=== PATIENT | female | born 1985 | race Caucasian/White ===

== ENCOUNTER 2016-07-23 17:53 | Inpatient (IN) | payer OTHER ==
[~2016-07-23 17:53] MED LIST: BACL10TA PO; CLON.5 PO; CLOT1CRE TOP; COLL30T TOP; CYMB60CA PO; DILA2TAB2 PO; DULO20 PO; FAMO20TA2 PO; FENT75DI T-DERMAL; IMIT25TA PO; LORTA5 PO; MAGN30S PO; METR-1 PO; MIDO5TAB PO; MULTTAB PO; ROCE1INJ3 IM; SILV1CRE20 TOP; ZOFR8TAB4 PO; [UNRECOGNIZED DRUG - CODE] PO
[2016-07-23 18:20] VITALS: BP 129/67; PULSE 93; RESP 18; TEMP 98.5; O2SAT 97
[2016-07-23 18:24] VITALS: O2SAT 97
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
[2016-07-23] MEDS ORDERED: FENT75DI T-DERMAL (19:06)
[2016-07-23] MEDS ORDERED: NORC5TAB PO (19:06)
[2016-07-23] MEDS ORDERED: IMIT25TA PO (19:06)
[2016-07-23] MEDS ORDERED: CLON.5 PO (19:06)
[2016-07-23] MEDS ORDERED: DULO1CAP3 PO (19:09)
[2016-07-23] MEDS ORDERED: DULO20 PO (19:09)
[2016-07-23] MEDS ORDERED: ASCO500T PO (19:10)
--- NOTE | 2016-07-23 19:14 | RADRPT ---
EXAM DATE/TIME: 07/23/2016 18:35 [facility] COMPARISON: HEEL RIGHT ([id number]), July 23, 2016, 18:40. INDICATIONS : Left heel abrasion. MEDICAL HISTORY : Paraplegic SURGICAL HISTORY : None. ENCOUNTER: Initial ACUITY: 1 week PAIN SCORE: 0/10 LOCATION: Left heel FINDINGS: There does appear to be an abnormal morphology to the calcaneus. There is either absen ce or severe remodeling at the posterior inferior calcaneus. There does appear to be some hypertroph ic change at the posterior superior calcaneus at the expected location of the Achilles attachment sit e. There is some lack of definition at the inferior calcaneus at the expected location of the planta r aponeurosis attachment site. A more acute process in this region cannot be excluded. An area of p eriosteal reaction is not seen. The bones do appear osteopenic. There is edema seen throughout the f oot. CONCLUSION: 1. Abnormal appearance of the calcaneus with either post surgical change or posttraumatic remodeling at the posterior inferior calcaneus. 2. Lack of sharp cortical definition at the inferior aspect of the calcaneus at the expected location of the plantar aponeurosis attachment site. A more acute inflammatory process in this region cannot be excluded. If that is a significant clinical concern the foot could be further evaluated with an MRI examination. 3. Diffuse edema. 4. Osteopenia. Raji Carnes MD on July 23, 2016 at 19:02 Board Certified Radiologist. This report was verified electronically.
--- NOTE | 2016-07-23 19:19 | RADRPT ---
EXAM DATE/TIME: 07/23/2016 18:40 [facility] COMPARISON: No previous studies available for comparison. INDICATIONS : Right heel abrasion. MEDICAL HISTORY : Paraplegic. SURGICAL HISTORY : None. ENCOUNTER: Initial ACUITY: 1 week PAIN SCORE: 0/10 LOCATION: Right heel FINDINGS: The bones are osteopenic. No areas of bony destruction are seen. Periosteal reaction is not seen. There does appear to be some edema within the subcutaneous tissue. CONCLUSION: 1. No acute bony abnormality is seen. 2. Osteopenia. 3. Subcutaneous edema. Raji Carnes MD on July 23, 2016 at 19:09 Board Certified Radiologist. This report was verified electronically.
[2016-07-23] MEDS ORDERED: VANCOMYCIN INJ 1,000 MG in SODIUM CHLOR 0.9% 250 ML INJ 250 ML IV ONE (19:30)
[2016-07-23 19:38] VITALS: BP 108/70; PULSE 93; RESP 21; O2SAT 96
[2016-07-23 19:56] LABS: AUTOMATED NEUTROPHIL # 23.6 TH/MM3 (1.8-7.7); BASOPHIL # 0.1 TH/MM3 (0-0.2); BASOPHIL % 0.3 % (0.0-2.0); HEMATOCRIT 31.5 % (35.0-46.0); INTERNATIONAL NORMALIZED RATIO 1.1 RATIO; LYMPH % 7.1 % (9.0-44.0); LYMPHOCYTE # 1.9 TH/MM3 (1.0-4.8); MEAN CELL VOLUME 77.9 FL (80.0-100.0); MEAN CORPUSCULAR HGB CONC 33.4 % (32.0-36.0); NEUT % 88.6 % (16.0-70.0); PLATELET COUNT 505 TH/MM3 (150-450); RED BLOOD COUNT 4.05 MIL/MM3 (4.00-5.30); RED CELL DISTRIBUTION WIDTH 16.4 % (11.6-17.2); WHITE BLOOD COUNT 26.7 TH/MM3 (4.0-11.0)
[2016-07-23 20:02] LABS: ANION GAP 9 MEQ/L (5-15); AST (GOT) 39 U/L (15-37); BICARBONATE 25.7 MEQ/L (21.0-32.0); BLOOD UREA NITROGEN 8 MG/DL (7-18); CHLORIDE 97 MEQ/L (98-107); GLOMERULAR FILTRATION RATE 232 ML/MIN (>89); POTASSIUM 4.6 MEQ/L (3.5-5.1); SODIUM (NA) 132 MEQ/L (136-145)
[2016-07-23 20:03] LABS: HEMO FLAGS AUTO DIFF
[2016-07-23 20:08] LABS: ALKALINE PHOSPHATASE 974 U/L (45-117); ALT (GPT) 30 U/L (10-53); TOTAL BILIRUBIN ADULT 0.7 MG/DL (0.2-1.0)
[2016-07-23] MEDS ORDERED: metroNIDAZOLE 500 MG INJ 100 ML IV ONE (20:15)
[2016-07-23] MEDS ORDERED: SODIUM CHLOR 0.9% 1000 ML INJ 1,000 ML IV ONE (20:18)
[2016-07-23] MEDS ORDERED: IOHEXOL 350 MG/ML 10 ML VIAL (for RAD DIAG) IV ONE (20:59)
[2016-07-23 21:14] LABS: PLATELET ESTIMATE SMEAR HIGH (NORMAL); SCAN/DIFF AUTO DIFF CONFIRMED
--- NOTE | 2016-07-23 21:27 | RADRPT ---
EXAM DATE/TIME: 07/23/2016 20:46 [facility] COMPARISON: MRI HIP RIGHT W & W/O CONTRAST, April 28, 2016, 15:02. CT PELVIS W CONTRAS T, March 20, 2015, 19:03. INDICATIONS : Stage four decubitus ulcer. Evaluate for osteomyelitis. IV CONTRAST: 100 cc Omnipaque 350 (iohexol) IV ORAL CONTRAST: No oral contrast ingested. RADIATION DOSE: 15.50 CTDIvol (mGy) MEDICAL HISTORY : Hypertension. Hepatitis C. Paraplegic SURGICAL HISTORY : None. ENCOUNTER: Initial ACUITY: 1 week PAIN SCALE: 5/10 LOCATION: Posterior pelvis TECHNIQUE: Volumetric scanning of the pelvis was performed. Using automated exposure control and adjustment of the mA and/or kV according to patient size, radiation dose was kept as low as reasonabl y achievable to obtain optimal diagnostic quality images. FINDINGS: The right femoral head is dislocated. There does appear to be some irregularity at th e femoral head. There is air within the right hip joint. There is chronic remodeling and destructio n of the inferior pubic rami and ischium on the right side. There is increased soft tissue density s een around the right lower pelvis around the superior and inferior pubic rami regions and around the right hip. There does appear to be decubitus ulcers that extend to the ischial tuberosity regions bi laterally. On the right side no abnormal bony changes are seen. There is some soft tissue density s een inferior to the ischial tuberosity on the left side. There does appear to be atrophy of the coccy x. CONCLUSION: 1. Right hip dislocation. 2. Destructive changes at the ischium and inferior pubic rami on the right. There also appears to be some destructive change at the femoral head all concerning for changes of osteomyelitis. 3. Fluid and air within the right hip joint suggesting it is likely septic. 4. Decubitus ulcers seen bilaterally extending to the ischial tuberosity regions. No bony destructio n is seen on the left side. Raji Carnes MD on July 23, 2016 at 21:08 Board Certified Radiologist. This report was verified electronically.
[2016-07-23 21:33] VITALS: BP 111/63; PULSE 98; RESP 22; O2SAT 97
[2016-07-23] MEDS ORDERED: Vancomycin Consult Pharmacy 1 EA OTHER SCH (22:15)
[2016-07-23] MEDS ORDERED: BISACODYL 10 MG SUPP PR PRN (22:15)
[2016-07-23] MEDS ORDERED: SODIUM CHLORIDE 0.9% FLUSH 5 ML FLUSH FLUSH PRN (22:15)
[2016-07-23] MEDS ORDERED: ONDANSETRON HCL 4 MG/2 ML VIAL IVP PRN (22:15)
[2016-07-23] MEDS ORDERED: HYDROmorphone HCL PF 1 MG/ML VIAL IV PRN (22:15)
[2016-07-23] MEDS ORDERED: ACETAMINOPHEN 325 MG TAB PO PRN (22:15)
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
[2016-07-23] MEDS ORDERED: REMOVE OLD PATCH-FENTANYL TD SCH (23:00)
[2016-07-23] MEDS ORDERED: fentaNYL 75 MCG/HR PATCH T-DERMAL SCH (23:00)
[2016-07-23 23:20] LABS: BACTERIA, URINE OCC /hpf; BLOOD, URINE NEG (NEG); COMMENT (UR) CULTURE INDICATED; CULTURE IF INDICATED CULTURE INDICATED; GLUCOSE,URINE NEG (NEG); KETONE, URINE NEG (NEG); MUCUS URINE FEW /lpf (OCC); PH, URINE 6.5 (5.0-8.5); SQUAMOUS EPITHELIAL CELL URINE <1 /hpf (0-5); URINE COLOR YELLOW (YELLW/STRAW)
[2016-07-23 23:22] LABS: NITRITE,URINE POS (NEG)
[2016-07-23] MEDS: SODIUM CHLOR 0.9% 1000 ML INJ 1,000 ML IV SCH (23:22)
[2016-07-23] MEDS: HYDROmorphone HCL PF 1 MG/ML VIAL IV PRN (23:24)
[2016-07-24] VITALS: BP 106/57; PULSE 65; PULSE 96; RESP 18; TEMP 96.9; O2SAT 98
[2016-07-24] MEDS: fentaNYL 75 MCG/HR PATCH T-DERMAL SCH (01:08)
[2016-07-24 04:00] VITALS: BP 98/53; PULSE 102; RESP 20; TEMP 98.7; O2SAT 97
[2016-07-24] MEDS ORDERED: VANCOMYCIN 1,000 MG/NS 250 ML IV ONE ×2 (04:00)
[2016-07-24] MEDS: HYDROmorphone HCL PF 1 MG/ML VIAL IV PRN ×5 (04:05→22:04)
[2016-07-24] MEDS: metroNIDAZOLE 500 MG INJ 100 ML IV SCH ×3 (04:06→22:00)
[2016-07-24] MEDS: DULoxetine HCl DR 60 MG CAP PO SCH (07:53)
[2016-07-24] MEDS: MULTIVITAMIN TAB PO SCH (07:54)
[2016-07-24] MEDS: BACLOFEN 10 MG TAB PO SCH ×3 (07:54→17:59)
[2016-07-24] MEDS: MIDODRINE 5 MG TAB PO SCH ×3 (07:54→17:58)
[2016-07-24] MEDS: FAMOTIDINE 20 MG TAB PO SCH ×2 (07:54→22:00)
[2016-07-24] MEDS: HEPARIN SODIUM - SQ 10,000 UNITS/ML VIAL SQ SCH ×2 (07:55→21:00)
[2016-07-24] MEDS: SODIUM CHLORIDE 0.9% FLUSH 5 ML FLUSH FLUSH SCH ×2 (07:56→22:01)
[2016-07-24] MEDS: SODIUM CHLOR 0.9% 1000 ML INJ 1,000 ML IV SCH ×2 (07:56→18:00)
[2016-07-24 08:00] VITALS: BP 102/61; PULSE 96; RESP 15; TEMP 97.6; O2SAT 100
[2016-07-24] MEDS ORDERED: BISACODYL EC 5 MG TABEC PO PRN (10:00)
[2016-07-24] MEDS ORDERED: RESP: ALBUTEROL 2.5 MG/IPRATROPIUM 0.5 MG NEB (PRN) NEB (10:00)
[2016-07-24] MEDS ORDERED: MAGNESIUM HYDROXIDE SUSP 30 ML CUP PO PRN (10:00)
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
[2016-07-24] MEDS: VANCOMYCIN 1,000 MG/NS 250 ML IV SCH ×4 (12:40→22:01)
[2016-07-24 16:00] VITALS: BP 98/51; PULSE 88; RESP 20; TEMP 99; O2SAT 96
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
[2016-07-24] MEDS: CEFEPIME INJ 2,000 MG in SODIUM CHLORIDE 0.9% INJ 100 ML IV SCH (18:00)
[2016-07-24] MEDS ORDERED: PHARMACY ORDERED LAB XX ONE (19:45)
[2016-07-24 20:00] VITALS: BP 95/56; PULSE 110; RESP 20; TEMP 98.6; O2SAT 95
[2016-07-24 20:04] VITALS: PULSE 100
[2016-07-24] MEDS: DOCUSATE SODIUM 50 MG/SENNA 8.6 MG TAB PO SCH (21:00)
[2016-07-24] MEDS: DULoxetine HCl DR 20 MG CAP PO SCH (22:00)
[2016-07-24] MEDS: clonazePAM 0.5 MG TAB PO PRN (22:19)
[2016-07-24 22:25] LABS: AUTOMATED NEUTROPHIL # 10.4 TH/MM3 (1.8-7.7); BASOPHIL % 0.3 % (0.0-2.0); EOSINOPHIL # 0.1 TH/MM3 (0-0.4); EOSINOPHIL % 0.7 % (0.0-4.0); LYMPH % 12.6 % (9.0-44.0); LYMPHOCYTE # 1.6 TH/MM3 (1.0-4.8); MEAN CELL VOLUME 78.9 FL (80.0-100.0); MEAN CORPUSCULAR HEMOGLOBIN 25.9 PG (27.0-34.0); MEAN CORPUSCULAR HGB CONC 32.8 % (32.0-36.0); MONO % 5.5 % (0.0-8.0); NEUT % 80.9 % (16.0-70.0); PLATELET COUNT 354 TH/MM3 (150-450); RED BLOOD COUNT 2.79 MIL/MM3 (4.00-5.30); RED CELL DISTRIBUTION WIDTH 15.7 % (11.6-17.2); WHITE BLOOD COUNT 12.8 TH/MM3 (4.0-11.0)
[2016-07-24 22:27] LABS: HEMO FLAGS AUTO DIFF
[2016-07-24 22:50] LABS: BICARBONATE 25.3 MEQ/L (21.0-32.0); CALCIUM-PROTEIN CORRECTED 8.1 MG/DL (8.5-10.1); POTASSIUM 3.8 MEQ/L (3.5-5.1); TOTAL BILIRUBIN ADULT 0.4 MG/DL (0.2-1.0)
[2016-07-24 22:57] LABS: PLATELET ESTIMATE SMEAR NORMAL (NORMAL); PLATELET MORPHOLOGY NORMAL (NORMAL); SCAN/DIFF AUTO DIFF CONFIRMED
[2016-07-25] VITALS (7 sets, daily range): BP systolic 92–108; BP diastolic 55–64; PULSE 86–105; RESP 15–21; TEMP 97.7–100; O2SAT 94–98
[2016-07-25] MEDS: CEFEPIME INJ 2,000 MG in SODIUM CHLORIDE 0.9% INJ 100 ML IV SCH ×3 (03:29→18:00)
[2016-07-25] MEDS: HYDROmorphone HCL PF 1 MG/ML VIAL IV PRN ×6 (04:10→22:40)
[2016-07-25] MEDS: VANCOMYCIN 1,000 MG/NS 250 ML IV SCH ×6 (04:15→16:00)
[2016-07-25] MEDS: SODIUM CHLOR 0.9% 1000 ML INJ 1,000 ML IV SCH ×2 (04:15→14:13)
[2016-07-25] MEDS: metroNIDAZOLE 500 MG INJ 100 ML IV SCH ×3 (05:00→20:32)
[2016-07-25] MEDS: SODIUM CHLORIDE 0.9% FLUSH 5 ML FLUSH FLUSH SCH ×2 (09:00→20:35)
[2016-07-25] MEDS: DOCUSATE SODIUM 50 MG/SENNA 8.6 MG TAB PO SCH ×2 (09:05→20:31)
[2016-07-25] MEDS: MULTIVITAMIN TAB PO SCH (09:05)
[2016-07-25] MEDS: FAMOTIDINE 20 MG TAB PO SCH ×2 (09:05→20:33)
[2016-07-25] MEDS: BACLOFEN 10 MG TAB PO SCH ×3 (09:05→18:05)
[2016-07-25] MEDS: HEPARIN SODIUM - SQ 10,000 UNITS/ML VIAL SQ SCH ×2 (09:05→20:32)
[2016-07-25] MEDS: DULoxetine HCl DR 60 MG CAP PO SCH (09:05)
[2016-07-25] MEDS: MIDODRINE 5 MG TAB PO SCH ×3 (09:05→18:05)
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
[2016-07-25 12:06] LABS: AUTOMATED NEUTROPHIL # 8.1 TH/MM3 (1.8-7.7); BASOPHIL % 0.2 % (0.0-2.0); EOSINOPHIL # 0.1 TH/MM3 (0-0.4); EOSINOPHIL % 0.9 % (0.0-4.0); HEMATOCRIT 23.2 % (35.0-46.0); HEMO FLAGS DIFF FINAL; LYMPH % 15.7 % (9.0-44.0); LYMPHOCYTE # 1.6 TH/MM3 (1.0-4.8); MEAN CELL VOLUME 78.8 FL (80.0-100.0); MEAN CORPUSCULAR HEMOGLOBIN 25.7 PG (27.0-34.0); MEAN CORPUSCULAR HGB CONC 32.6 % (32.0-36.0); NEUT % 77.2 % (16.0-70.0); PLATELET COUNT 373 TH/MM3 (150-450); RED BLOOD COUNT 2.94 MIL/MM3 (4.00-5.30); RED CELL DISTRIBUTION WIDTH 15.9 % (11.6-17.2); WHITE BLOOD COUNT 10.4 TH/MM3 (4.0-11.0)
[2016-07-25 12:26] LABS: ALKALINE PHOSPHATASE 562 U/L (45-117); ALT (GPT) 15 U/L (10-53); ANION GAP 9 MEQ/L (5-15); AST (GOT) 15 U/L (15-37); BICARBONATE 25.2 MEQ/L (21.0-32.0); BLOOD UREA NITROGEN 4 MG/DL (7-18); CHLORIDE 102 MEQ/L (98-107); GLOMERULAR FILTRATION RATE 500 ML/MIN (>89); POTASSIUM 3.4 MEQ/L (3.5-5.1); SODIUM (NA) 136 MEQ/L (136-145); TOTAL BILIRUBIN ADULT 0.5 MG/DL (0.2-1.0)
--- NOTE | 2016-07-25 14:52 | PD.CONS ---
HPI Service Urology Consult Requested By Reason for Consult Retained suprapubic catheter Primary Care Physician Francois Guzman Diagnosis: (1) Sepsis ICD Code: A41.9 (2) UTI (urinary tract infection) ICD Code: N39.0 (3) Decubitus ulcer of right ischium, stage 4 ICD Code: L89.314 (4) Septic joint ICD Code: M00.9 (5) Ulcer of left heel ICD Code: L97.429 (6) Ulcer of right heel ICD Code: L97.419 (7) Osteomyelitis ICD Code: M86.9 (8) Paraplegia following spinal cord injury ICD Code: G82.20 (9) Bipolar disorder ICD Code: F31.9 (10) Tobacco abuse ICD Code: Z72.0 (11) Total self-care deficit ICD Code: R41.89 (12) Quadriplegia following spinal cord injury ICD Code: G82.50 (13) Bacteremia ICD Code: R78.81 History of Present Illness 31-year-old female admitted for further management of a dislocated septic right hip joint as well as osteomyelitis involving the sacrum and left heel. During her present hospitalization the patient was noted to have a suprapubic catheter which was placed back in April of last year by Dr. Dorado and was no longer functioning. The patient actually had the end of the catheter kinked and tied off to prevent seepage. She states that she was once again able to form self catheterizations and was interested in having the suprapubic catheter removed. I did review the CT scan of the pelvis performed during present admission and the tip of the suprapubic catheter appeared to have a significant amount of calcium depositions involving the tip of the catheter. I discussed with the patient that I would attempt to remove the tube at the bedside but normal likely could she would require cystoscopy with laser ablation of the calcium deposits prior to removal. Review of Systems Constitutional: COMPLAINS OF: Fatigue Genitourinary: DENIES: Urinary incontinence, Hematuria Musculoskeletal: COMPLAINS OF: Back pain (lower back) Other All other systems reviewed and negative. Past Family Social History Past Medical History Neurogenic bladder Paraplegia Bipolar disorder Anxiety Chronic decubiti Past Surgical History Placement of suprapubic catheter in April 2016 Diverting colostomy Left femur andrey placement Left hand surgery G-tube section 2 Reported Medications Refer to EMR Allergies: Coded Allergies: Penicillin (Verified Allergy, Severe, HIVES, 07/23/16) Daptomycin (Verified Allergy, Mild, Rash, 07/23/16) *MDRO Multi-Drug Resistant Organism (Verified Adverse Reaction, Unknown, ) MRSA (back wound) - 06/16/2015 Active Ordered Medications Refer to EMR Family History Reviewed and noncontributory Social History Smoker one half pack per day History drug abuse in the past Denies history alcohol abuse Physical Exam Vital Signs Vital Signs Date Time Temp Pulse Resp B/P Pulse Ox O2 Delivery O2 Flow Rate FiO2 07/25/16 04:00 99.0 99 21 108/64 95 07/25/16 00:00 100.0 105 20 96/56 96 07/24/16 20:04 100 07/24/16 20:00 98.6 110 20 95/56 95 07/24/16 16:00 99.0 88 20 98/51 96 Physical Exam GENERAL: This is a well-nourished, well-developed patient, in no apparent distress. SKIN: No rashes, ecchymoses or lesions. Cool and dry. HEAD: Atraumatic. Normocephalic. No temporal or scalp tenderness. EYES: Pupils equal round and reactive. Extraocular motions intact. No scleral icterus. No injection or drainage. ENT: Nose without bleeding, purulent drainage or septal hematoma. Throat without erythema, tonsillar hypertrophy or exudate. Uvula midline. Airway patent. NECK: Trachea midline. No JVD or lymphadenopathy. Supple, nontender, no meningeal signs.. GASTROINTESTINAL: Abdomen soft, non-tender, nondistended. : Suprapubic catheter in expected location and not draining. MUSCULOSKELETAL: Bilateral heel ulcers NEUROLOGICAL: Awake and alert. Cranial nerves II through XII intact. Normal speech. Paraplegia. Laboratory Laboratory Tests Test 07/24/16 07/25/16 22:10 11:37 White Blood Count 12.8 10.4 Red Blood Count 2.79 2.94 Hemoglobin 7.2 7.5 Hematocrit 22.0 23.2 Mean Corpuscular Volume 78.9 78.8 Mean Corpuscular Hemoglobin 25.9 25.7 Mean Corpuscular Hemoglobin 32.8 32.6 Concent Red Cell Distribution Width 15.7 15.9 Platelet Count 354 373 Mean Platelet Volume 7.7 7.7 Neutrophils (%) (Auto) 80.9 77.2 Lymphocytes (%) (Auto) 12.6 15.7 Monocytes (%) (Auto) 5.5 6.0 Eosinophils (%) (Auto) 0.7 0.9 Basophils (%) (Auto) 0.3 0.2 Neutrophils # (Auto) 10.4 8.1 Lymphocytes # (Auto) 1.6 1.6 Monocytes # (Auto) 0.7 0.6 Eosinophils # (Auto) 0.1 0.1 Basophils # (Auto) 0.0 0.0 CBC Comment AUTO DIFF DIFF FINAL Differential Comment AUTO DIFF CONFIRMED Platelet Estimate NORMAL Platelet Morphology Comment NORMAL Sodium Level 137 136 Potassium Level 3.8 3.4 Chloride Level 104 102 Carbon Dioxide Level 25.3 25.2 Anion Gap 8 9 Blood Urea Nitrogen 6 4 Creatinine 0.30 0.17 Estimat Glomerular Filtration 259 500 Rate Random Glucose 82 78 Calcium Level 7.4 7.5 Protein Corrected Calcium 8.1 Total Bilirubin 0.4 0.5 Aspartate Amino Transf 19 15 (AST/SGOT) Alanine Aminotransferase 19 15 (ALT/SGPT) Alkaline Phosphatase 562 562 Total Protein 5.8 5.9 Albumin 1.4 1.4 Vancomycin Level Trough 5.7 35.0 Date/Time Procedure Status Source Growth 07/25/16 11:43 Aerobic Blood Culture Received Blood Peripheral Pending 07/25/16 11:43 Anaerobic Blood Culture Received Blood Peripheral Pending 07/23/16 22:52 Urine Culture - Final Complete Urine Clean Catch 07/23/16 21:10 Gram Stain - Final Resulted Wound Foot 07/23/16 21:10 Wound Culture - Preliminary Resulted Staphylococcus Aureus Gram Negative Andrey 07/23/16 20:30 Aerobic Blood Culture - Preliminary Resulted Blood Peripheral Staphylococcus Aureus 07/23/16 20:30 Anaerobic Blood Culture - Preliminary Resulted Blood Peripheral NO GROWTH IN 2 DAYS Result Diagram: 07/25/16 1137 07/25/16 1137 Course Multiple attempts were made to remove the suprapubic catheter at bedside without success. Balloon was cycled several times with up to 30 cc sterile water. Assessment and Plan Assessment and Plan Urologic impression: #1 retained and occluded suprapubic catheter. #2 neurogenic bladder. Plan: #1 continue with Cortez to gravity drainage for now #2 keep and of suprapubic catheter covered with sterile gauze #3 will make arrangements for removal of suprapubic catheter in the cystoscopy suite with assistance of cystoscopy and laser lithotripsy. Problem Qualifiers (1) Ulcer of left heel: Qualified Code: L97.429 - Ulcer of left heel, with unspecified severity (2) Ulcer of right heel: Qualified Code: L97.419 - Ulcer of right heel, with unspecified severity (3) Osteomyelitis: Qualified Code: M86.19 - Acute osteomyelitis of multiple sites Dino Rush MD Jul 25, 2016 14:51
[2016-07-25] MEDS ORDERED: PHARMACY ORDERED LAB XX ONE (15:45)
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
[2016-07-25] MEDS: MUPIROCIN 2% OINT 22 GM TUBE TOPICAL SCH ×2 (18:05→20:34)
[2016-07-25] MEDS: DULoxetine HCl DR 20 MG CAP PO SCH (20:33)
[2016-07-26] VITALS (7 sets, daily range): BP systolic 91–106; BP diastolic 50–59; PULSE 85–97; RESP 16–19; TEMP 96.9–99; O2SAT 95–100
[2016-07-26] MEDS: SODIUM CHLOR 0.9% 1000 ML INJ 1,000 ML IV SCH ×3 (00:13→21:57)
[2016-07-26] MEDS: CEFEPIME INJ 2,000 MG in SODIUM CHLORIDE 0.9% INJ 100 ML IV SCH ×3 (00:29→18:47)
[2016-07-26] MEDS: HYDROmorphone HCL PF 1 MG/ML VIAL IV PRN ×6 (04:13→21:53)
[2016-07-26] MEDS: metroNIDAZOLE 500 MG INJ 100 ML IV SCH ×3 (04:14→21:57)
[2016-07-26 05:27] LABS: AUTOMATED NEUTROPHIL # 7.1 TH/MM3 (1.8-7.7); BASOPHIL # 0.1 TH/MM3 (0-0.2); BASOPHIL % 1.3 % (0.0-2.0); EOSINOPHIL # 0.1 TH/MM3 (0-0.4); EOSINOPHIL % 0.9 % (0.0-4.0); HEMO FLAGS DIFF FINAL; LYMPH % 15.9 % (9.0-44.0); LYMPHOCYTE # 1.5 TH/MM3 (1.0-4.8); MEAN CELL VOLUME 79.3 FL (80.0-100.0); MEAN CORPUSCULAR HEMOGLOBIN 25.4 PG (27.0-34.0); MONO % 6.2 % (0.0-8.0); NEUT % 75.7 % (16.0-70.0); PLATELET COUNT 407 TH/MM3 (150-450); RED CELL DISTRIBUTION WIDTH 15.9 % (11.6-17.2); WHITE BLOOD COUNT 9.4 TH/MM3 (4.0-11.0)
[2016-07-26 05:38] LABS: BICARBONATE 24.9 MEQ/L (21.0-32.0); CALCIUM-PROTEIN CORRECTED 8.3 MG/DL (8.5-10.1); TOTAL BILIRUBIN ADULT 0.3 MG/DL (0.2-1.0)
[2016-07-26 06:06] LABS: POTASSIUM 2.7 MEQ/L (3.5-5.1)
[2016-07-26] MEDS ORDERED: POTASSIUM CHLORIDE 25 MEQ EFFERVESCENT TAB PO ONE (06:45)
[2016-07-26] MEDS: DOCUSATE SODIUM 50 MG/SENNA 8.6 MG TAB PO SCH ×2 (08:48→21:55)
[2016-07-26] MEDS: MIDODRINE 5 MG TAB PO SCH ×3 (08:48→18:47)
[2016-07-26] MEDS: FAMOTIDINE 20 MG TAB PO SCH ×2 (08:48→21:55)
[2016-07-26] MEDS: BACLOFEN 10 MG TAB PO SCH ×3 (08:48→18:47)
[2016-07-26] MEDS: POTASSIUM CHLOR 20 MEQ PREMIX 100 ML IV SCH ×2 (08:49→11:51)
[2016-07-26] MEDS: MULTIVITAMIN TAB PO SCH (08:49)
[2016-07-26] MEDS: DULoxetine HCl DR 60 MG CAP PO SCH (08:59)
[2016-07-26] MEDS: HEPARIN SODIUM - SQ 10,000 UNITS/ML VIAL SQ SCH ×2 (09:04→21:55)
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
[2016-07-26] MEDS ORDERED: POTASSIUM CHLORIDE 10 MEQ CONTROLLED RELEASE TAB PO ONE (11:00)
--- NOTE | 2016-07-26 11:26 | HHI.PR ---
Subjective Remarks Resting quietly in no acute distress. Objective Vital Signs Vital Signs Date Time Temp Pulse Resp B/P Pulse Ox O2 Delivery O2 Flow Rate FiO2 07/26/16 08:00 98.4 88 17 95/52 98 07/26/16 04:00 97.6 92 19 101/54 95 07/26/16 00:00 97.6 87 18 97/54 95 07/25/16 20:00 98.6 91 18 95/56 94 07/25/16 19:44 95 07/25/16 16:00 97.7 91 15 107/62 98 07/25/16 12:00 97.8 86 18 99/57 98 I/O 07/25/16 07/25/16 07/25/16 07/26/16 07/26/16 07/26/16 07:00 15:00 23:00 07:00 15:00 23:00 Intake Total 906 ml 240 ml 1320 ml 753 ml Output Total 250 ml 400 ml 2000 ml 650 ml Balance 656 ml -160 ml -680 ml 103 ml Intake Oral 240 ml 240 ml 720 ml 240 ml IV Total 666 ml 600 ml 513 ml Output Urine Total 250 ml 400 ml 600 ml 250 ml Stool Total 0 ml 1400 ml 400 ml Result Diagram: 07/26/16 0359 07/26/16 0359 Objective Remarks Suprapubic catheter remains included. Assessment and Plan Assessment and Plan Urologic impression: #1 retained and occluded suprapubic catheter. #2 neurogenic bladder. Plan: #1 continue with Cortez to gravity drainage for now #2 keep and of suprapubic catheter covered with sterile gauze #3 arrangements made for removal of suprapubic catheter with assistance of cystoscopy and laser lithotripsy for today Dino Rush MD Jul 26, 2016 11:26
[2016-07-26] MEDS: VANCOMYCIN 1,000 MG/NS 250 ML IV SCH ×4 (14:46→21:55)
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
[2016-07-26] MEDS: SODIUM CHLORIDE 0.9% FLUSH 5 ML FLUSH FLUSH SCH (21:00)
[2016-07-26] MEDS: DULoxetine HCl DR 20 MG CAP PO SCH (21:58)
[2016-07-26] MEDS: MUPIROCIN 2% OINT 22 GM TUBE TOPICAL SCH (21:58)
[2016-07-26] MEDS: clonazePAM 0.5 MG TAB PO PRN (22:16)
[2016-07-27 00:12] VITALS: BP 105/51; PULSE 90; RESP 16; TEMP 96.4; O2SAT 92
[2016-07-27] MEDS: fentaNYL 75 MCG/HR PATCH T-DERMAL SCH (02:13)
[2016-07-27] MEDS: CEFEPIME INJ 2,000 MG in SODIUM CHLORIDE 0.9% INJ 100 ML IV SCH ×3 (02:14→20:21)
[2016-07-27] MEDS: REMOVE OLD PATCH-FENTANYL TD SCH (02:14)
[2016-07-27] MEDS: HYDROmorphone HCL PF 1 MG/ML VIAL IV PRN ×7 (02:17→23:11)
[2016-07-27 04:04] VITALS: BP 104/57; PULSE 92; RESP 17; TEMP 98.1; O2SAT 97
[2016-07-27] MEDS: SODIUM CHLOR 0.9% 1000 ML INJ 1,000 ML IV SCH ×2 (05:17→08:15)
[2016-07-27] MEDS: metroNIDAZOLE 500 MG INJ 100 ML IV SCH ×3 (05:17→20:21)
[2016-07-27] MEDS: VANCOMYCIN 1,000 MG/NS 250 ML IV SCH ×6 (05:17→23:11)
[2016-07-27 08:00] VITALS: BP 92/48; PULSE 87; RESP 17; TEMP 99; O2SAT 100
[2016-07-27] MEDS: MIDODRINE 5 MG TAB PO SCH ×3 (08:15→19:05)
[2016-07-27] MEDS: FAMOTIDINE 20 MG TAB PO SCH ×2 (08:15→20:22)
[2016-07-27] MEDS: DOCUSATE SODIUM 50 MG/SENNA 8.6 MG TAB PO SCH ×2 (08:15→20:22)
[2016-07-27] MEDS: DULoxetine HCl DR 60 MG CAP PO SCH (08:15)
[2016-07-27] MEDS: MULTIVITAMIN TAB PO SCH (08:15)
[2016-07-27] MEDS: BACLOFEN 10 MG TAB PO SCH ×3 (08:15→19:05)
[2016-07-27] MEDS: HEPARIN SODIUM - SQ 10,000 UNITS/ML VIAL SQ SCH ×2 (08:19→20:22)
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
[2016-07-27 12:00] VITALS: BP 85/45; PULSE 85; RESP 17; TEMP 98.8; O2SAT 98
[2016-07-27] MEDS ORDERED: PHARMACY ORDERED LAB XX ONE (13:45)
[2016-07-27 16:00] VITALS: BP 96/50; PULSE 93; RESP 17; TEMP 98.7; O2SAT 97
[2016-07-27 17:23] LABS: ANION GAP 8 MEQ/L (5-15); BLOOD UREA NITROGEN 1 MG/DL (7-18); CHLORIDE 100 MEQ/L (98-107); GLOMERULAR FILTRATION RATE 577 ML/MIN (>89); POTASSIUM 3.4 MEQ/L (3.5-5.1); SODIUM (NA) 136 MEQ/L (136-145)
[2016-07-27 17:45] LABS: CALCIUM-PROTEIN CORRECTED 8.2 MG/DL (8.5-10.1)
[2016-07-27] MEDS: SODIUM CHLORIDE 0.9% FLUSH 5 ML FLUSH FLUSH SCH (20:20)
[2016-07-27] MEDS: DULoxetine HCl DR 20 MG CAP PO SCH (20:22)
[2016-07-27] MEDS: MUPIROCIN 2% OINT 22 GM TUBE TOPICAL SCH (20:25)
[2016-07-27] MEDS: clonazePAM 0.5 MG TAB PO PRN (23:10)
[2016-07-28] VITALS (7 sets, daily range): BP systolic 96–147; BP diastolic 51–71; PULSE 84–110; RESP 16–20; TEMP 97.1–99; O2SAT 95–97
[2016-07-28] MEDS: CEFEPIME INJ 2,000 MG in SODIUM CHLORIDE 0.9% INJ 100 ML IV SCH ×2 (02:33→08:41)
[2016-07-28] MEDS: HYDROmorphone HCL PF 1 MG/ML VIAL IV PRN ×6 (05:30→21:25)
[2016-07-28] MEDS: metroNIDAZOLE 500 MG INJ 100 ML IV SCH ×2 (05:31→12:06)
[2016-07-28] MEDS: VANCOMYCIN 1,000 MG/NS 250 ML IV SCH ×6 (05:32→22:50)
[2016-07-28] MEDS ORDERED: PHARMACY ORDERED LAB XX ONE (05:45)
[2016-07-28] MEDS: FAMOTIDINE 20 MG TAB PO SCH ×2 (08:37→21:33)
[2016-07-28] MEDS: DULoxetine HCl DR 60 MG CAP PO SCH (08:37)
[2016-07-28] MEDS: HEPARIN SODIUM - SQ 10,000 UNITS/ML VIAL SQ SCH ×2 (08:37→21:00)
[2016-07-28] MEDS: MULTIVITAMIN TAB PO SCH (08:37)
[2016-07-28] MEDS: SODIUM CHLORIDE 0.9% FLUSH 5 ML FLUSH FLUSH SCH ×2 (08:38→21:26)
[2016-07-28] MEDS: MIDODRINE 5 MG TAB PO SCH ×4 (08:38→18:06)
[2016-07-28] MEDS: BACLOFEN 10 MG TAB PO SCH ×3 (08:38→18:06)
[2016-07-28] MEDS: DOCUSATE SODIUM 50 MG/SENNA 8.6 MG TAB PO SCH ×2 (08:39→21:00)
[2016-07-28] MEDS: MUPIROCIN 2% OINT 22 GM TUBE TOPICAL SCH ×2 (08:41→21:00)
[2016-07-28] MEDS: SODIUM HYPOCHLORITE 0.25% 500 ML BTL TOPICAL SCH (08:41)
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
[2016-07-28] MEDS ORDERED: POTASSIUM CHLORIDE 20 MEQ CONTROLLED RELEASE TAB PO ONE (12:00)
[2016-07-28] MEDS ORDERED: ASP: Documented ESBL, MDR A baumannii or P. aeruginosa XX PRN (13:30)
[2016-07-28] MEDS ORDERED: MISCELLANEOUS PHARMACY INFORMATION XX PRN (13:30)
[2016-07-28] MEDS ORDERED: VANCOMYCIN INJ 750 MG in SODIUM CHLOR 0.9% 250 ML INJ 250 ML IV SCH (14:00)
[2016-07-28] MEDS: IMIPENEM/CILASTATIN INJ 500 MG in SODIUM CHLORIDE 0.9% INJ 100 ML IV SCH ×2 (15:33→22:55)
--- NOTE | 2016-07-28 18:23 | PD.PLAS.PN ---
Subjective Remarks The patient reports that she is doing well. Vital Signs Date Time Temp Pulse Resp B/P Pulse Ox O2 Delivery O2 Flow Rate FiO2 07/28/16 16:00 98.9 103 19 99/56 96 07/28/16 15:40 20 07/28/16 12:00 99.0 110 19 96/51 97 07/28/16 08:00 97.1 103 18 100/60 96 07/28/16 04:00 98.7 92 16 100/62 95 07/28/16 03:03 16 07/28/16 00:00 98.1 84 20 120/71 96 07/27/16 20:00 I/O 07/27/16 07/27/16 07/27/16 07/28/16 07/28/16 07/28/16 07:00 15:00 23:00 07:00 15:00 23:00 Intake Total 1627 ml 780 ml 1435 ml Output Total 1000 ml 1050 ml 775 ml Balance 627 ml -270 ml 660 ml Intake Oral 380 ml 780 ml 485 ml IV Total 1247 ml 950 ml Output Urine Total 600 ml 1050 ml 775 ml Stool Total 400 ml 0 ml # Bowel Movements 1 Laboratory Tests Test 07/28/16 05:00 Vancomycin Level Trough 20.8 Date/Time Procedure Status Source Growth 07/25/16 11:43 Aerobic Blood Culture - Preliminary Resulted Blood Peripheral NO GROWTH IN 3 DAYS 07/25/16 11:43 Anaerobic Blood Culture - Preliminary Resulted Blood Peripheral NO GROWTH IN 3 DAYS 07/23/16 22:52 Urine Culture - Final Complete Urine Clean Catch 07/23/16 21:10 Gram Stain - Final Complete Wound Foot 07/23/16 21:10 Wound Culture - Final Complete Staphylococcus Aureus Pseudomonas Aeruginosa 07/23/16 20:30 Aerobic Blood Culture - Final Complete Blood Peripheral Staphylococcus Aureus 07/23/16 20:30 Anaerobic Blood Culture - Final Complete Blood Peripheral NO GROWTH IN 5 DAYS Result Diagram: 07/26/16 0359 07/27/16 1622 Exam Findings We examined the decubitus ulcers of her buttocks and sacrum. The left buttock wound has a slight amount of necrotic material. There is no foul odor. There is minimal drainage. There is no evidence of cellulitis. The remaining 2 wounds are clean. They have good granulating bases. There is no evidence of surrounding cellulitis, foul odor or necrotic material. Plan Impression: The patient has very clean decubitus ulcers of both buttocks and sacrum. There is no evidence of cellulitis or active infection. There is only the usual colonization as noted on the cultures. Plan: There is no need for antibiotics to treat these areas. We have ordered local wound care and we'll debride the small amount of necrotic material on the left side. The patient may be a candidate for wound VAC therapy. Charla Gibbs MD Jul 28, 2016 18:23
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
[2016-07-28] MEDS: LACTOBACILLUS ACIDOPHILUS TAB PO SCH (21:33)
[2016-07-28] MEDS: DULoxetine HCl DR 20 MG CAP PO SCH (21:33)
[2016-07-28] MEDS: clonazePAM 0.5 MG TAB PO PRN (22:55)
[2016-07-29] VITALS: BP 113/64; PULSE 98; RESP 18; TEMP 97.7; O2SAT 96
[2016-07-29] MEDS: HYDROmorphone HCL PF 1 MG/ML VIAL SQ PRN ×3 (00:30→08:16)
[2016-07-29] MEDS ORDERED: HYDROmorphone HCL PF 1 MG/ML VIAL SQ PRN (01:15)
[2016-07-29] MEDS: IMIPENEM/CILASTATIN INJ 500 MG in SODIUM CHLORIDE 0.9% INJ 100 ML IV SCH ×4 (03:00→20:33)
[2016-07-29 04:11] VITALS: BP 100/60; PULSE 89; RESP 16; O2SAT 94
[2016-07-29 04:53] LABS: BASOPHIL # 0.1 TH/MM3 (0-0.2); BASOPHIL % 0.6 % (0.0-2.0); EOSINOPHIL # 0.1 TH/MM3 (0-0.4); EOSINOPHIL % 1.2 % (0.0-4.0); HEMATOCRIT 25.7 % (35.0-46.0); HEMO FLAGS DIFF FINAL; LYMPH % 17.2 % (9.0-44.0); LYMPHOCYTE # 1.9 TH/MM3 (1.0-4.8); MEAN CELL VOLUME 78.6 FL (80.0-100.0); MEAN CORPUSCULAR HEMOGLOBIN 25.7 PG (27.0-34.0); MEAN CORPUSCULAR HGB CONC 32.7 % (32.0-36.0); MONO % 8.1 % (0.0-8.0); NEUT % 72.9 % (16.0-70.0); PLATELET COUNT 528 TH/MM3 (150-450); RED BLOOD COUNT 3.27 MIL/MM3 (4.00-5.30); RED CELL DISTRIBUTION WIDTH 16.6 % (11.6-17.2)
[2016-07-29 05:17] LABS: BICARBONATE 29.7 MEQ/L (21.0-32.0); POTASSIUM 3.5 MEQ/L (3.5-5.1)
[2016-07-29] MEDS: VANCOMYCIN 1,000 MG/NS 250 ML IV SCH ×6 (05:21→20:32)
[2016-07-29 05:35] LABS: CALCIUM-PROTEIN CORRECTED 7.9 MG/DL (8.5-10.1)
[2016-07-29] MEDS ORDERED: PHARMACY ORDERED LAB XX ONE (05:45)
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
[2016-07-29] MEDS: MIDODRINE 5 MG TAB PO SCH ×3 (08:15→16:32)
[2016-07-29] MEDS: FAMOTIDINE 20 MG TAB PO SCH ×2 (08:15→20:33)
[2016-07-29] MEDS: BACLOFEN 10 MG TAB PO SCH ×3 (08:15→16:32)
[2016-07-29] MEDS: DOCUSATE SODIUM 50 MG/SENNA 8.6 MG TAB PO SCH ×2 (08:16→20:33)
[2016-07-29] MEDS: LACTOBACILLUS ACIDOPHILUS TAB PO SCH ×2 (08:16→20:33)
[2016-07-29] MEDS: MULTIVITAMIN TAB PO SCH (08:16)
[2016-07-29] MEDS: SODIUM CHLORIDE 0.9% FLUSH 5 ML FLUSH FLUSH SCH ×2 (08:17→20:34)
[2016-07-29] MEDS: HEPARIN SODIUM - SQ 10,000 UNITS/ML VIAL SQ SCH ×2 (08:17→20:34)
[2016-07-29] MEDS: SODIUM HYPOCHLORITE 0.25% 500 ML BTL TOPICAL SCH (08:18)
[2016-07-29] MEDS: MUPIROCIN 2% OINT 22 GM TUBE TOPICAL SCH ×2 (08:18→20:39)
[2016-07-29] MEDS: DULoxetine HCl DR 60 MG CAP PO SCH (08:42)
[2016-07-29 09:02] VITALS: BP 109/62; PULSE 91; RESP 16; TEMP 100.7; O2SAT 94
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
[2016-07-29] MEDS ORDERED: PILL SPLITTER OTHER PRN (11:45)
[2016-07-29] MEDS ORDERED: HYDROmorphone HCL 2 MG TAB PO PRN (12:00)
[2016-07-29] MEDS: HYDROmorphone HCL 2 MG TAB PO PRN ×3 (12:27→20:35)
--- NOTE | 2016-07-29 15:19 | HHI.IDPN ---
Note Infectious Disease Note ID COVERAGE. Patient notes she is in pain and is tearful. Has fever. BC + for MSSA,GBS One bottle of the repeat blood clx has gram pos cocci. Heel clx with MDRO PSAE Antibiotics vanco Imipenem. Past Medical History paraplegia Allergies: Coded Allergies: Penicillin (Verified Allergy, Severe, HIVES, 07/23/16) Daptomycin (Verified Allergy, Mild, Rash, 07/23/16) *MDRO Multi-Drug Resistant Organism (Verified Adverse Reaction, Unknown, ) MRSA (back wound) - 06/16/2015 XDR-Pseudomonas Aeruginosa (foot)-07/23/16 Current Medications Medications (Trade) Dose Ordered Sig/Kinjal Route PRN Reason Start Time Stop Time Status Last Admin Dose Admin Pharmacy Profile Note (Vancomycin Consult Pharmacy) 0 ml @ 0 mls/hr UNSCH OTHER 07/23/16 22:15 IV Flush (NS Flush) 2 ml UNSCH PRN FLUSH FLUSH AFTER USING IV ACCESS 07/23/16 22:15 07/26/16 04:13 IV Flush (NS Flush) 2 ml BID FLUSH 07/24/16 09:00 07/28/16 21:26 Ondansetron HCl (Zofran Inj) 4 mg Q6H PRN IVP NAUSEA OR VOMITING 07/23/16 22:15 Bisacodyl (Dulcolax Supp) 10 mg DAILY PRN DE CONSTIPATION 07/23/16 22:15 Heparin Sodium (Porcine) (Heparin Inj) 5,000 units Q12H SQ 07/24/16 09:00 07/29/16 08:17 Acetaminophen (Tylenol) 650 mg Q6H PRN PO FEVER/PAIN SCALE 1 TO 2 07/23/16 22:15 Baclofen (Lioresal) 5 mg TID PO 07/24/16 09:00 07/29/16 12:27 Clonazepam (KlonoPIN) 0.5 mg DAILY PRN PO ANXIETY 07/23/16 22:15 07/28/16 22:55 Duloxetine HCl (Cymbalta Dr) 60 mg DAILY PO 07/24/16 09:00 07/29/16 08:42 Duloxetine HCl (Cymbalta Dr) 20 mg HS PO 07/24/16 21:00 07/28/16 21:33 Famotidine (Pepcid) 20 mg Q12HR PO 07/24/16 09:00 07/28/16 21:33 Midodrine (Proamatine) 5 mg TID PO 07/24/16 09:00 07/29/16 12:27 Multivitamins (Theragran) 1 tab DAILY PO 07/24/16 09:00 07/29/16 08:16 Fentanyl (Duragesic 75 Mcg Patch.72 Hr) 1 patch Q72H T-DERMAL 07/24/16 01:00 07/27/16 02:13 Miscellaneous Information 1 Q72H TD 07/27/16 01:00 07/27/16 02:14 Senna/Docusate Sodium (Nkechi-Colace) 2 tab BID PO 07/24/16 21:00 07/27/16 20:22 Bisacodyl (Dulcolax Ec) 5 mg DAILY PRN PO CONSTIPATION 07/24/16 10:00 Magnesium Hydroxide (Milk Of Magnfidel Liq) 30 ml Q6H PRN PO CONSTIPATION 07/24/16 10:00 Mupirocin (Bactroban 2% Oint) 1 applic Q12HR TOPICAL 07/25/16 13:00 07/29/16 08:18 Sodium Hypochlorite 500 ml 500 ml DAILY TOPICAL 07/27/16 11:00 07/29/16 08:18 Vancomycin HCl/ Sodium Chloride (Vancomycin Inj/ NS 250 ml Inj) 250 ml @ 250 mls/hr Q8H IV 07/28/16 14:00 07/29/16 12:27 Lactobacillus Acidophilus 1 tab 1 tab Q12HR PO 07/28/16 21:00 07/29/16 08:16 Imipenem/ Cilastatin Sodium/ Sodium Chloride (Primaxin Inj/NS Inj) 100 ml @ 200 mls/hr Q6H IV 07/28/16 15:00 07/29/16 10:22 Hydromorphone HCl (Dilaudid) 1 mg Q4H PRN PO PAIN SCALE 3 TO 5 07/29/16 12:00 Hydromorphone HCl (Dilaudid) 2 mg Q4H PRN PO PAIN SCALE 6 TO 10 07/29/16 12:00 07/29/16 12:27 Miscellaneous (Pill Splitter) 1 ea UNSCH PRN OTHER SEE LABEL COMMENTS 07/29/16 11:45 Objective Vital Signs Date Time Temp Pulse Resp B/P Pulse Ox O2 Delivery O2 Flow Rate FiO2 07/29/16 09:02 100.7 91 16 109/62 94 07/29/16 04:11 89 16 100/60 94 07/29/16 00:00 97.7 98 18 113/64 96 07/28/16 20:07 105 07/28/16 20:00 98.6 107 18 110/64 96 07/28/16 16:00 98.9 103 19 99/56 96 07/28/16 15:40 20 07/28/16 07/28/16 07/29/16 15:00 23:00 07:00 Intake Total 1435 ml 240 ml 240 ml Output Total 775 ml 500 ml 250 ml Balance 660 ml -260 ml -10 ml Intake Oral 485 ml 240 ml 240 ml IV Total 950 ml 0 ml 0 ml Output Urine Total 775 ml 500 ml 250 ml Stool Total 0 ml # Bowel Movements 0 0 Laboratory Tests Test 07/29/16 03:41 White Blood Count 11.0 TH/MM3 Red Blood Count 3.27 MIL/MM3 Hemoglobin 8.4 GM/DL Hematocrit 25.7 % Mean Corpuscular Volume 78.6 FL Mean Corpuscular Hemoglobin 25.7 PG Mean Corpuscular Hemoglobin 32.7 % Concent Red Cell Distribution Width 16.6 % Platelet Count 528 TH/MM3 Mean Platelet Volume 7.5 FL Neutrophils (%) (Auto) 72.9 % Lymphocytes (%) (Auto) 17.2 % Monocytes (%) (Auto) 8.1 % Eosinophils (%) (Auto) 1.2 % Basophils (%) (Auto) 0.6 % Neutrophils # (Auto) 8.0 TH/MM3 Lymphocytes # (Auto) 1.9 TH/MM3 Monocytes # (Auto) 0.9 TH/MM3 Eosinophils # (Auto) 0.1 TH/MM3 Basophils # (Auto) 0.1 TH/MM3 CBC Comment DIFF FINAL Differential Comment Laboratory Tests Test 07/27/16 07/29/16 16:22 03:41 Sodium Level 136 MEQ/L 133 MEQ/L Potassium Level 3.4 MEQ/L 3.5 MEQ/L Chloride Level 100 MEQ/L 97 MEQ/L Carbon Dioxide Level 28.0 MEQ/L 29.7 MEQ/L Anion Gap 8 MEQ/L 6 MEQ/L Blood Urea Nitrogen 1 MG/DL 2 MG/DL Creatinine LESS THAN 0.15 0.25 MG/DL MG/DL Estimat Glomerular Filtration 577 ML/MIN 320 ML/MIN Rate Random Glucose 84 MG/DL 99 MG/DL Calcium Level 7.4 MG/DL 7.4 MG/DL Protein Corrected Calcium 8.2 MG/DL 7.9 MG/DL Total Protein 5.7 GM/DL 6.1 GM/DL Imaging Pelvis CT 07/23/16 0000 Signed Impressions: Service Date/Time: Saturday, July 23, 2016 20:46 - CONCLUSION: 1. Right hip dislocation. 2. Destructive changes at the ischium and inferior pubic rami on the right. There also appears to be some destructive change at the femoral head all concerning for changes of osteomyelitis. 3. Fluid and air within the right hip joint suggesting it is likely septic. 4. Decubitus ulcers seen bilaterally extending to the ischial tuberosity regions. No bony destruction is seen on the left side. Raji Carnes MD Foot X-Ray 07/23/16 0000 Signed Impressions: Service Date/Time: Saturday, July 23, 2016 18:40 - CONCLUSION: 1. No acute bony abnormality is seen. 2. Osteopenia. 3. Subcutaneous edema. Raji Carnes MD Physical Exam CONSTITUTIONAL/GENERAL: No apparent distress. Ill appearing SKIN: No jaundice, rashes, or lesions. dressings in place CARDIOVASCULAR: Regular rate and rhythm without murmurs, gallops, or rubs. RESPIRATORY/CHEST: unlabored respirations. GASTROINTESTINAL: Abdomen soft, non-tender, nondistended. Bowel sounds present. Stoma in place with stool GENITOURINARY: Without palpable bladder distension. Cortez catheter in place\ with somewhat cloudy urine SP cath in place, clamped MUSCULOSKELETAL: Sacral ulcer stage 3 clean. R buttock ulcer clean with good granulation. Left buttock has some creamy debris. Extremities without clubbing, cyanosis, + 1 edema. No mottling or clubbing. NEUROLOGICAL: Awake and alert. Follows commands with BUE, speech normal. 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 R femoral head osteomyelitis. Seen by ortho and plans for surgery tomorrow. right hip joint septic arthritis R calcaneous infected ulcer complicated UTI L hip decubitus ulcer, infected, necrotic Allergic to PCN, h/o taking Keflex uneventfully urology ff non functional SP cath plans for removal of suprapubic catheter with assistance of cystoscopy and laser lithotripsy Staph aureus Bacteremia. -Continue vancomycin, -Continue Primaxin. Follow clinical status. Monitor blood cultures. Blane Biggs MD Jul 29, 2016 15:19
[2016-07-29 16:53] VITALS: BP 107/54; PULSE 101; RESP 18; TEMP 99; O2SAT 94
[2016-07-29 20:30] VITALS: BP 108/53; PULSE 91; RESP 16; TEMP 98.5; O2SAT 97
[2016-07-29] MEDS: DULoxetine HCl DR 20 MG CAP PO SCH (20:33)
[2016-07-29 20:35] VITALS: PULSE 93
[2016-07-30] VITALS: BP 116/67; PULSE 80; RESP 18; TEMP 98.6; O2SAT 98
[2016-07-30] MEDS: HYDROmorphone HCL 2 MG TAB PO PRN ×5 (00:56→20:09)
[2016-07-30] MEDS: REMOVE OLD PATCH-FENTANYL TD SCH (00:57)
[2016-07-30] MEDS: fentaNYL 75 MCG/HR PATCH T-DERMAL SCH (00:57)
[2016-07-30] MEDS: IMIPENEM/CILASTATIN INJ 500 MG in SODIUM CHLORIDE 0.9% INJ 100 ML IV SCH ×4 (02:44→21:47)
[2016-07-30 04:00] VITALS: BP 100/54; PULSE 106; RESP 19; TEMP 98.6; O2SAT 94
[2016-07-30] MEDS: VANCOMYCIN 1,000 MG/NS 250 ML IV SCH ×6 (05:16→21:53)
--- NOTE | 2016-07-30 06:52 | PD.ORT.PN ---
Subjective Subjective Remarks s/p right hip dislocation with infection doing well. pain controlled Objective Vitals Vital Signs Date Time Temp Pulse Resp B/P Pulse Ox O2 Delivery O2 Flow Rate FiO2 07/30/16 04:00 98.6 106 19 100/54 94 07/30/16 00:00 98.6 80 18 116/67 98 07/29/16 20:35 93 07/29/16 20:30 98.5 91 16 108/53 97 07/29/16 16:53 99.0 101 18 107/54 94 07/29/16 09:02 100.7 91 16 109/62 94 I/O 07/29/16 07/29/16 07/29/16 07/30/16 07/30/16 07/30/16 07:00 15:00 23:00 07:00 15:00 23:00 Intake Total 240 ml 407 ml 620 ml 457 ml Output Total 250 ml 1000 ml 600 ml Balance -10 ml 407 ml -380 ml -143 ml Intake Oral 240 ml 240 ml 0 ml IV Total 0 ml 407 ml 380 ml 457 ml Output Urine Total 250 ml 1000 ml 600 ml # Bowel Movements 0 0 Result Diagram: 07/29/16 0341 07/29/16 0341 Objective Remarks Patient is awake and alert. She has no motor function of her legs. Examination of right hip reveals a 5 cm open wound over the ischium. This appears to track down to the hip joint. She also has a pressure ulcer over the sacrum. There is serosanguineous drainage. There is no john purulence. Assessment & Plan Assessment and Plan 1) Right hip dislocation with infection -surgery today Timur Miller Jul 30, 2016 06:52
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
[2016-07-30 08:00] VITALS: BP 103/51; PULSE 93; RESP 17; TEMP 100.2; O2SAT 97
[2016-07-30] MEDS: LACTOBACILLUS ACIDOPHILUS TAB PO SCH ×2 (08:25→20:05)
[2016-07-30] MEDS: MIDODRINE 5 MG TAB PO SCH ×3 (08:25→17:54)
[2016-07-30] MEDS: DULoxetine HCl DR 60 MG CAP PO SCH (08:25)
[2016-07-30] MEDS: MULTIVITAMIN TAB PO SCH (08:25)
[2016-07-30] MEDS: BACLOFEN 10 MG TAB PO SCH ×3 (08:26→17:54)
[2016-07-30] MEDS: FAMOTIDINE 20 MG TAB PO SCH ×2 (08:26→20:05)
[2016-07-30] MEDS: DOCUSATE SODIUM 50 MG/SENNA 8.6 MG TAB PO SCH ×2 (08:26→20:05)
[2016-07-30] MEDS: SODIUM CHLORIDE 0.9% FLUSH 5 ML FLUSH FLUSH SCH ×2 (08:27→21:50)
[2016-07-30] MEDS: MUPIROCIN 2% OINT 22 GM TUBE TOPICAL SCH ×2 (08:27→20:06)
[2016-07-30] MEDS: SODIUM HYPOCHLORITE 0.25% 500 ML BTL TOPICAL SCH (08:27)
[2016-07-30] MEDS: HEPARIN SODIUM - SQ 10,000 UNITS/ML VIAL SQ SCH ×2 (08:27→20:06)
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
[2016-07-30] MEDS ORDERED: HYDROmorphone HCL PF 2 MG/ML VIAL ONE (10:35)
[2016-07-30] MEDS ORDERED: FAMOTIDINE 20 MG/2 ML VIAL ONE (10:35)
[2016-07-30] MEDS ORDERED: ACETAMINOPHEN 1000 MG/100 ML VIAL IV ONE (10:35)
[2016-07-30] MEDS ORDERED: VANCOMYCIN HCL 1000 MG VIAL ONE ×2 (10:52→11:56)
[2016-07-30] MEDS ORDERED: GENTAMICIN SULFATE 80 MG/2 ML VIAL ONE (10:53)
[2016-07-30] MEDS ORDERED: TOBRAMYCIN SULFATE 1200 MG VIAL OTHER ONE (11:36)
[2016-07-30] MEDS ORDERED: ONDANSETRON HCL 4 MG/2 ML VIAL IV PUSH ONE (12:00)
[2016-07-30] MEDS ORDERED: PHENYLEPH/NS 1000 MCG/10 ML SYR IV ONE (12:00)
[2016-07-30] MEDS ORDERED: PROPOFOL 200 MG/20 ML AMP IV ONE (12:00)
[2016-07-30] MEDS: LACTATED RINGER'S 1000 ML INJ 1,000 ML IV SCH ×2 (12:17→21:58)
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
[2016-07-30 13:02] VITALS: PULSE 81
[2016-07-30] MEDS ORDERED: fentaNYL CITRATE 250 MCG/5 ML AMP ONE (13:07)
[2016-07-30] MEDS ORDERED: MIDAZOLAM HCL 2 MG/2 ML VIAL ONE (13:07)
[2016-07-30] MEDS ORDERED: DO NOT ADM ANY ANTICOAGULANT DRUGS XX PRN (13:30)
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
--- NOTE | 2016-07-30 17:05 | PD.OP ---
Operative Report Preoperative Diagnosis: (1) Pressure ulcer of ischial area, stage 4 Left Postoperative Diagnosis: (1) Pressure ulcer of ischial area, stage 4 Left Procedure: Debridement of left ischial pressure ulcer using versajet. Anesthesia: General Surgeon: Charla Gibbs MD General Engineer(s): Jam Rogers PA-C Operation and Findings: The patient was in the right lateral position from Dr. Curry's procedure. The drapes were cut to extend the opening and expose the wound of the left ischium. The area was reprepped. Versajet was used to debride necrotic tissue from wound edges and wound bed. Dressings were applied to the pressure ulcers of the sacrum, and bilateral ischia including saline wet to dry gauze, which was covered with ABD pads and taped in place. The patient was then taken from the operating room to the recovery room in satisfactory condition. Postoperative instructions include resuming 0.25% Dakin's solution wet to dry dressings daily beginning tomorrow. Jaja Rogers Jul 30, 2016 17:05 Charla Gibbs MD Aug 02, 2016 12:40
[2016-07-30 20:00] VITALS: BP 128/84; PULSE 78; RESP 18; TEMP 96.9; O2SAT 96
[2016-07-30] MEDS: DULoxetine HCl DR 20 MG CAP PO SCH (20:05)
[2016-07-31] VITALS: BP 120/77; PULSE 83; RESP 18; TEMP 96.2; O2SAT 98
[2016-07-31] MEDS: HYDROmorphone HCL 2 MG TAB PO PRN ×6 (00:50→22:39)
[2016-07-31] MEDS: IMIPENEM/CILASTATIN INJ 500 MG in SODIUM CHLORIDE 0.9% INJ 100 ML IV SCH ×4 (03:17→21:11)
[2016-07-31] MEDS: VANCOMYCIN 1,000 MG/NS 250 ML IV SCH ×2 (05:02)
[2016-07-31] MEDS ORDERED: PHARMACY ORDERED LAB XX ONE (05:45)
[2016-07-31 05:50] LABS: BICARBONATE 28.3 MEQ/L (21.0-32.0); POTASSIUM 3.7 MEQ/L (3.5-5.1)
[2016-07-31 05:51] LABS: AUTOMATED NEUTROPHIL # 6.1 TH/MM3 (1.8-7.7); BASOPHIL % 0.3 % (0.0-2.0); EOSINOPHIL % 0.1 % (0.0-4.0); HEMATOCRIT 25.3 % (35.0-46.0); LYMPH % 16.5 % (9.0-44.0); LYMPHOCYTE # 1.3 TH/MM3 (1.0-4.8); MEAN CELL VOLUME 79.4 FL (80.0-100.0); MEAN CORPUSCULAR HEMOGLOBIN 25.7 PG (27.0-34.0); MEAN CORPUSCULAR HGB CONC 32.3 % (32.0-36.0); MONO % 3.5 % (0.0-8.0); NEUT % 79.6 % (16.0-70.0); PLATELET COUNT 569 TH/MM3 (150-450); RED BLOOD COUNT 3.19 MIL/MM3 (4.00-5.30); RED CELL DISTRIBUTION WIDTH 17.2 % (11.6-17.2); WHITE BLOOD COUNT 7.7 TH/MM3 (4.0-11.0)
[2016-07-31 06:13] LABS: HEMO FLAGS AUTO DIFF
[2016-07-31 08:00] VITALS: BP 111/74; PULSE 76; RESP 17; TEMP 96.5; O2SAT 95
[2016-07-31 08:36] LABS: METAMYELOCYTES 1 % (0-1); MYELOCYTES 1 % (0-0); NEUTROPHIL # MANUAL DIFF 6.1 TH/MM3 (1.8-7.7); PLATELET ESTIMATE SMEAR HIGH (NORMAL); PLATELET MORPHOLOGY NORMAL (NORMAL); POLYS (SEG NEUTROPHILS) 77 % (16-70); SCAN/DIFF FINAL DIFF MANUAL; WBC DIFF SAMPLE 100
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
[2016-07-31] MEDS: DULoxetine HCl DR 60 MG CAP PO SCH (08:53)
[2016-07-31] MEDS: MIDODRINE 5 MG TAB PO SCH ×3 (08:53→18:32)
[2016-07-31] MEDS: LACTOBACILLUS ACIDOPHILUS TAB PO SCH ×2 (08:53→21:00)
[2016-07-31] MEDS: DOCUSATE SODIUM 50 MG/SENNA 8.6 MG TAB PO SCH ×2 (08:54→21:11)
[2016-07-31] MEDS: FAMOTIDINE 20 MG TAB PO SCH ×2 (08:54→21:11)
[2016-07-31] MEDS: MULTIVITAMIN TAB PO SCH (08:54)
[2016-07-31] MEDS: BACLOFEN 10 MG TAB PO SCH ×3 (08:54→18:32)
[2016-07-31] MEDS: SODIUM CHLORIDE 0.9% FLUSH 5 ML FLUSH FLUSH SCH ×2 (08:55→21:10)
[2016-07-31] MEDS: HEPARIN SODIUM - SQ 10,000 UNITS/ML VIAL SQ SCH ×3 (08:55→21:12)
[2016-07-31] MEDS: MUPIROCIN 2% OINT 22 GM TUBE TOPICAL SCH ×2 (08:57→21:12)
[2016-07-31] MEDS: SODIUM HYPOCHLORITE 0.25% 500 ML BTL TOPICAL SCH (08:57)
[2016-07-31] MEDS ORDERED: fentaNYL 75 MCG/HR PATCH TD SCH (09:00)
[2016-07-31 12:00] VITALS: BP 116/68; PULSE 85; RESP 17; TEMP 96.3; O2SAT 98
[2016-07-31] MEDS: LACTATED RINGER'S 1000 ML INJ 1,000 ML IV SCH ×3 (13:18→21:13)
[2016-07-31 16:00] VITALS: BP 120/63; PULSE 87; RESP 18; TEMP 97.3; O2SAT 98
[2016-07-31 20:00] VITALS: BP 110/67; PULSE 82; RESP 16; TEMP 96.4; O2SAT 99
[2016-07-31] MEDS: DULoxetine HCl DR 20 MG CAP PO SCH (21:11)
[2016-08-01] VITALS: BP 104/62; PULSE 88; RESP 14; TEMP 96.6; O2SAT 99
[2016-08-01] MEDS: IMIPENEM/CILASTATIN INJ 500 MG in SODIUM CHLORIDE 0.9% INJ 100 ML IV SCH ×4 (02:50→21:00)
[2016-08-01] MEDS: HYDROmorphone HCL 2 MG TAB PO PRN ×4 (02:51→22:09)
[2016-08-01 08:00] VITALS: BP 110/60; PULSE 88; RESP 20; TEMP 97; O2SAT 99
[2016-08-01] MEDS: DOCUSATE SODIUM 50 MG/SENNA 8.6 MG TAB PO SCH ×2 (09:00→21:00)
[2016-08-01] MEDS: FAMOTIDINE 20 MG TAB PO SCH ×2 (09:00→21:00)
[2016-08-01] MEDS: DULoxetine HCl DR 60 MG CAP PO SCH (10:01)
[2016-08-01] MEDS: MULTIVITAMIN TAB PO SCH (10:01)
[2016-08-01] MEDS: BACLOFEN 10 MG TAB PO SCH ×3 (10:02→18:00)
[2016-08-01] MEDS: LACTOBACILLUS ACIDOPHILUS TAB PO SCH ×2 (10:02→21:29)
[2016-08-01] MEDS: DULoxetine HCl DR 20 MG CAP PO SCH ×2 (10:02→21:29)
[2016-08-01] MEDS: MIDODRINE 5 MG TAB PO SCH ×3 (10:03→18:00)
[2016-08-01] MEDS: HEPARIN SODIUM - SQ 10,000 UNITS/ML VIAL SQ SCH ×2 (10:03→21:00)
[2016-08-01] MEDS: SODIUM CHLORIDE 0.9% FLUSH 5 ML FLUSH FLUSH SCH ×2 (10:05→21:00)
[2016-08-01] MEDS ORDERED: HYDROmorphone HCL 4 MG TAB PO ONE (10:30)
[2016-08-01 12:00] VITALS: BP 110/55; PULSE 87; RESP 20; TEMP 97.5; O2SAT 95
--- NOTE | 2016-08-01 12:45 | PD.ORT.PN ---
Subjective Subjective Remarks Resting comfortably Objective Vitals Vital Signs Date Time Temp Pulse Resp B/P Pulse Ox O2 Delivery O2 Flow Rate FiO2 08/01/16 08:00 97.0 88 20 110/60 99 08/01/16 00:00 96.6 88 14 104/62 99 07/31/16 20:00 96.4 82 16 110/67 99 07/31/16 16:00 97.3 87 18 120/63 98 I/O 07/31/16 07/31/16 07/31/16 08/01/16 08/01/16 08/01/16 07:00 15:00 23:00 07:00 15:00 23:00 Intake Total 1056 ml 580 ml 610 ml 335 ml Output Total 500 ml 650 ml 400 ml Balance 1056 ml 80 ml -40 ml -65 ml Intake Oral 240 ml 240 ml 360 ml 120 ml IV Total 816 ml 340 ml 250 ml 215 ml Output Urine Total 500 ml 500 ml 350 ml Stool Total 150 ml 50 ml # Voids 3 # Bowel Movements 0 2 Result Diagram: 07/31/16 0359 07/31/16 0335 Objective Remarks Patient is awake and alert. She has no motor function of her legs. Examination of right hip reveals a 5 cm open wound over the ischium. hip incision is clean dry and intact. no signs of erythema or drainage Assessment & Plan Assessment and Plan 1) Right hip dislocation with infection -daily dressing changes beginning today - xeroform and primapore Antibiotics khanh will remain for 2 1/2 -3 weeks from surgery CECILIA STAPLES PA-C Aug 01, 2016 12:45
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
[2016-08-01] MEDS ORDERED: HYDROmorphone HCL PF 1 MG/ML VIAL IV PRN (14:00)
[2016-08-01] MEDS: LACTATED RINGER'S 1000 ML INJ 1,000 ML IV SCH (14:17)
[2016-08-01 16:00] VITALS: BP 115/55; PULSE 108; RESP 20; TEMP 98.9; O2SAT 98
[2016-08-01] MEDS: VANCOMYCIN 1,000 MG/NS 250 ML IV SCH ×2 (18:46)
[2016-08-01] MEDS: MUPIROCIN 2% OINT 22 GM TUBE TOPICAL SCH ×2 (18:48→21:00)
[2016-08-01] MEDS: SODIUM HYPOCHLORITE 0.25% 500 ML BTL TOPICAL SCH (18:48)
[2016-08-02] VITALS: BP 123/75; PULSE 102; RESP 20; TEMP 97.9; O2SAT 98
[2016-08-02] MEDS: LACTATED RINGER'S 1000 ML INJ 1,000 ML IV SCH ×3 (00:17→22:31)
[2016-08-02] MEDS: REMOVE OLD PATCH-FENTANYL TD SCH (01:00)
[2016-08-02] MEDS: fentaNYL 75 MCG/HR PATCH T-DERMAL SCH (01:33)
[2016-08-02] MEDS: VANCOMYCIN 1,000 MG/NS 250 ML IV SCH ×4 (02:00→18:56)
[2016-08-02] MEDS ORDERED: CYCLOBENZAPRINE HCL 10 MG TAB PO ONE (02:00)
[2016-08-02] MEDS: IMIPENEM/CILASTATIN INJ 500 MG in SODIUM CHLORIDE 0.9% INJ 100 ML IV SCH ×4 (03:00→22:32)
[2016-08-02] MEDS: HYDROmorphone HCL 2 MG TAB PO PRN ×2 (05:28→11:20)
[2016-08-02 08:00] VITALS: BP 103/54; PULSE 101; RESP 20; TEMP 96.9; O2SAT 95
[2016-08-02] MEDS: SODIUM HYPOCHLORITE 0.25% 500 ML BTL TOPICAL SCH (09:00)
[2016-08-02] MEDS: SODIUM CHLORIDE 0.9% FLUSH 5 ML FLUSH FLUSH SCH ×2 (09:00→22:33)
[2016-08-02] MEDS: HEPARIN SODIUM - SQ 10,000 UNITS/ML VIAL SQ SCH ×2 (09:00→22:32)
[2016-08-02] MEDS: MUPIROCIN 2% OINT 22 GM TUBE TOPICAL SCH ×2 (09:00→21:00)
[2016-08-02] MEDS: FAMOTIDINE 20 MG TAB PO SCH ×2 (09:00→22:32)
--- NOTE | 2016-08-02 11:10 | PD.ORT.PN ---
Subjective Subjective Remarks Resting comfortably Objective Vitals Vital Signs Date Time Temp Pulse Resp B/P Pulse Ox O2 Delivery O2 Flow Rate FiO2 08/02/16 08:00 96.9 101 20 103/54 95 08/02/16 00:00 97.9 102 20 123/75 98 08/01/16 16:00 98.9 108 20 115/55 98 08/01/16 12:00 97.5 87 20 110/55 95 I/O 08/01/16 08/01/16 08/01/16 08/02/16 08/02/16 08/02/16 07:00 15:00 23:00 07:00 15:00 23:00 Intake Total 335 ml 605 ml 480 ml 120 ml Output Total 400 ml 200 ml 1600 ml Balance -65 ml 405 ml -1120 ml 120 ml Intake Oral 120 ml 480 ml 480 ml 120 ml IV Total 215 ml 125 ml Output Urine Total 350 ml 200 ml 1600 ml Stool Total 50 ml # Bowel Movements 0 Result Diagram: 07/31/16 0359 07/31/16 0335 Objective Remarks Patient is awake and alert. She has no motor function of her legs. Examination of right hip reveals a 5 cm open wound over the ischium. hip incision is clean dry and intact. no signs of erythema or drainage Assessment & Plan Assessment and Plan 1) Right hip dislocation with infection with resection of femoral head and antibiotic bead placement POD 3 -daily dressing changes - xeroform and primapore Antibiotics khanh will remain for 2 1/2 -3 weeks from surgery CECILIA STAPLES PA-C Aug 02, 2016 11:10
[2016-08-02] MEDS: LACTOBACILLUS ACIDOPHILUS TAB PO SCH ×2 (11:19→22:32)
[2016-08-02] MEDS: DOCUSATE SODIUM 50 MG/SENNA 8.6 MG TAB PO SCH ×2 (11:19→22:32)
[2016-08-02] MEDS: BACLOFEN 10 MG TAB PO SCH ×3 (11:20→18:42)
[2016-08-02] MEDS: DULoxetine HCl DR 60 MG CAP PO SCH (11:20)
[2016-08-02] MEDS: MULTIVITAMIN TAB PO SCH (11:20)
[2016-08-02] MEDS: MIDODRINE 5 MG TAB PO SCH ×3 (11:20→18:42)
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
--- NOTE | 2016-08-02 13:32 | PD.PLAS.PN ---
Subjective Remarks Patient is lying comfortably. She reports that she is feeling better today. Objective Vital Signs Date Time Temp Pulse Resp B/P Pulse Ox O2 Delivery O2 Flow Rate FiO2 08/02/16 08:00 96.9 101 20 103/54 95 08/02/16 00:00 97.9 102 20 123/75 98 08/01/16 16:00 98.9 108 20 115/55 98 I/O 08/01/16 08/01/16 08/01/16 08/02/16 08/02/16 08/02/16 07:00 15:00 23:00 07:00 15:00 23:00 Intake Total 335 ml 605 ml 480 ml 120 ml Output Total 400 ml 200 ml 1600 ml Balance -65 ml 405 ml -1120 ml 120 ml Intake Oral 120 ml 480 ml 480 ml 120 ml IV Total 215 ml 125 ml Output Urine Total 350 ml 200 ml 1600 ml Stool Total 50 ml # Bowel Movements 0 Date/Time Procedure Status Source Growth 07/30/16 19:17 Aerobic Blood Culture - Preliminary Resulted Blood Peripheral NO GROWTH IN 3 DAYS 07/30/16 19:17 Anaerobic Blood Culture - Preliminary Resulted Blood Peripheral NO GROWTH IN 3 DAYS 07/30/16 11:50 Gram Stain - Final Complete Wound Hip 07/30/16 11:50 Wound Culture - Final Complete Staphylococcus Aureus 07/30/16 11:50 Fungal Smear - Final Resulted Wound Hip NO FUNGAL ELEMENTS SEEN. 07/30/16 11:50 Fungal Culture Resulted Wound Hip Pending 07/30/16 11:50 Acid Fast Stain - Final Resulted Wound Hip NO ACID FAST BACILLI SEEN 07/30/16 11:50 Mycobacterial Culture Resulted Wound Hip Pending Result Diagram: 07/31/16 0359 07/31/16 0335 Exam Findings Dressings in place to the sacral and bilateral ischial ulcers. Wounds are clean. There is no odor. Wounds beds with pink granulation tissue. Clear, serosanguineous drainage. Assessment and Plan Diagnosis: (1) Pressure ulcer of sacral region, stage 4 (2) Pressure ulcer of ischial area, stage 4 Assessment and Plan The wounds are clean without evidence of infection. Continue with daily 0.25% Dakin's solution wet to dry dressing. Spoke to patient and RN. Jaja Rogers Aug 02, 2016 13:32
[2016-08-02 13:33] VITALS: BP 70/40; PULSE 105; RESP 19; TEMP 98.7; O2SAT 99
[2016-08-02 14:59] VITALS: BP 88/55; PULSE 80; RESP 20; TEMP 99.1; O2SAT 96
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
[2016-08-02] MEDS: HYDROmorphone HCL 4 MG TAB PO PRN (18:42)
--- NOTE | 2016-08-02 19:03 | RADRPT ---
EXAM DATE/TIME: 08/02/2016 18:02 [facility] COMPARISON: No previous studies available for comparison. FINDINGS: A single view of the chest demonstrates the lungs to be symmetrically aerated without evidence of mas s, infiltrate or effusion, except for minimal basilar atelectasis. The cardiomediastinal contours ar e unremarkable. Osseous structures are intact. CONCLUSION: 1. Right PICC line tip in superior vena cava. Minimal basilar atelectasis. Norris Diaz MD on August 02, 2016 at 19:01 Board Certified Radiologist. This report was verified electronically.
[2016-08-02 20:04] VITALS: BP 113/65
[2016-08-03] VITALS: BP 111/61; PULSE 118; RESP 18; TEMP 99.3; O2SAT 98
[2016-08-03] MEDS: HYDROmorphone HCL 4 MG TAB PO PRN ×4 (00:12→18:54)
[2016-08-03] MEDS ORDERED: PHARMACY ORDERED LAB XX ONE ×2 (01:45→06:45)
[2016-08-03] MEDS: IMIPENEM/CILASTATIN INJ 500 MG in SODIUM CHLORIDE 0.9% INJ 100 ML IV SCH ×4 (02:51→21:04)
[2016-08-03] MEDS: VANCOMYCIN 1,000 MG/NS 250 ML IV SCH ×4 (06:03→18:54)
[2016-08-03 08:00] VITALS: BP 108/54; PULSE 108; RESP 17; TEMP 98.3; O2SAT 98
[2016-08-03] MEDS: HEPARIN SODIUM - SQ 10,000 UNITS/ML VIAL SQ SCH ×3 (08:50→21:00)
[2016-08-03] MEDS: SODIUM HYPOCHLORITE 0.25% 500 ML BTL TOPICAL SCH (08:51)
[2016-08-03] MEDS: BACLOFEN 10 MG TAB PO SCH ×3 (08:51→17:31)
[2016-08-03] MEDS: MULTIVITAMIN TAB PO SCH (08:51)
[2016-08-03] MEDS: DOCUSATE SODIUM 50 MG/SENNA 8.6 MG TAB PO SCH ×2 (08:51→21:00)
[2016-08-03] MEDS: MUPIROCIN 2% OINT 22 GM TUBE TOPICAL SCH ×2 (08:51→21:00)
[2016-08-03] MEDS: DULoxetine HCl DR 60 MG CAP PO SCH (08:51)
[2016-08-03] MEDS: MIDODRINE 5 MG TAB PO SCH ×3 (08:51→17:31)
[2016-08-03] MEDS: FAMOTIDINE 20 MG TAB PO SCH ×2 (08:51→21:00)
[2016-08-03] MEDS: LACTOBACILLUS ACIDOPHILUS TAB PO SCH ×2 (08:51→21:00)
[2016-08-03] MEDS: SODIUM CHLORIDE 0.9% FLUSH 5 ML FLUSH FLUSH SCH ×2 (08:52→21:04)
[2016-08-03] MEDS ORDERED: REMOVE OLD PATCH T-DERMAL SCH (09:00)
[2016-08-03 12:00] VITALS: BP 110/58; PULSE 98; RESP 17; TEMP 98.6; O2SAT 99
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
[2016-08-03] MEDS: LACTATED RINGER'S 1000 ML INJ 1,000 ML IV SCH ×2 (16:17→21:05)
[2016-08-03 20:00] VITALS: BP 109/61; PULSE 96; RESP 18; TEMP 97.6; O2SAT 100
[2016-08-03] MEDS: DULoxetine HCl DR 20 MG CAP PO SCH (21:04)
[2016-08-04] VITALS: BP 119/67; PULSE 56; RESP 19; TEMP 98.6; O2SAT 99
[2016-08-04] MEDS: IMIPENEM/CILASTATIN INJ 500 MG in SODIUM CHLORIDE 0.9% INJ 100 ML IV SCH ×4 (01:13→20:18)
[2016-08-04] MEDS: HYDROmorphone HCL 4 MG TAB PO PRN ×3 (01:13→14:04)
[2016-08-04] MEDS: VANCOMYCIN 1,000 MG/NS 250 ML IV SCH ×4 (05:34→17:55)
[2016-08-04 06:03] LABS: AUTOMATED NEUTROPHIL # 5.4 TH/MM3 (1.8-7.7); BASOPHIL % 0.3 % (0.0-2.0); EOSINOPHIL # 0.1 TH/MM3 (0-0.4); EOSINOPHIL % 1.7 % (0.0-4.0); HEMATOCRIT 21.6 % (35.0-46.0); HEMO FLAGS DIFF FINAL; LYMPH % 23.5 % (9.0-44.0); LYMPHOCYTE # 1.9 TH/MM3 (1.0-4.8); MEAN CELL VOLUME 77.9 FL (80.0-100.0); MEAN CORPUSCULAR HEMOGLOBIN 26.5 PG (27.0-34.0); MONO % 8.8 % (0.0-8.0); NEUT % 65.7 % (16.0-70.0); PLATELET COUNT 449 TH/MM3 (150-450); RED BLOOD COUNT 2.77 MIL/MM3 (4.00-5.30); RED CELL DISTRIBUTION WIDTH 18.1 % (11.6-17.2); WHITE BLOOD COUNT 8.2 TH/MM3 (4.0-11.0)
[2016-08-04 06:29] LABS: BICARBONATE 27.6 MEQ/L (21.0-32.0); POTASSIUM 3.8 MEQ/L (3.5-5.1)
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
[2016-08-04 08:00] VITALS: BP 94/48; PULSE 95; RESP 18; TEMP 97.3; O2SAT 99
[2016-08-04] MEDS: SODIUM CHLORIDE 0.9% FLUSH 5 ML FLUSH FLUSH SCH ×2 (08:41→20:19)
[2016-08-04] MEDS: HEPARIN SODIUM - SQ 10,000 UNITS/ML VIAL SQ SCH ×2 (09:00→20:20)
[2016-08-04] MEDS: DOCUSATE SODIUM 50 MG/SENNA 8.6 MG TAB PO SCH ×2 (09:00→20:20)
[2016-08-04] MEDS: MUPIROCIN 2% OINT 22 GM TUBE TOPICAL SCH ×2 (09:00→20:20)
[2016-08-04] MEDS: SODIUM HYPOCHLORITE 0.25% 500 ML BTL TOPICAL SCH (09:00)
[2016-08-04] MEDS: FAMOTIDINE 20 MG TAB PO SCH ×2 (10:24→20:20)
[2016-08-04] MEDS: DULoxetine HCl DR 20 MG CAP PO SCH (10:24)
[2016-08-04] MEDS: LACTOBACILLUS ACIDOPHILUS TAB PO SCH ×2 (10:24→20:19)
[2016-08-04] MEDS: MIDODRINE 5 MG TAB PO SCH ×3 (10:24→17:56)
[2016-08-04] MEDS: BACLOFEN 10 MG TAB PO SCH ×3 (10:25→17:56)
[2016-08-04] MEDS: MULTIVITAMIN TAB PO SCH (10:25)
[2016-08-04] MEDS: DULoxetine HCl DR 60 MG CAP PO SCH ×2 (10:49→20:19)
[2016-08-04] MEDS: LACTATED RINGER'S 1000 ML INJ 1,000 ML IV SCH ×2 (10:50→17:56)
[2016-08-04 12:00] VITALS: BP 103/58; PULSE 92; RESP 18; TEMP 97.7; O2SAT 99
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
[2016-08-04 16:00] VITALS: BP 105/63; PULSE 89; RESP 17; TEMP 97.8; O2SAT 99
[2016-08-04 20:00] VITALS: BP 102/51; PULSE 89; RESP 17; TEMP 98.6; O2SAT 95
[2016-08-04] MEDS: HYDROmorphone HCL 2 MG TAB PO PRN (20:17)
[2016-08-05] MEDS: REMOVE OLD PATCH-FENTANYL TD SCH (01:00)
[2016-08-05] MEDS: fentaNYL 75 MCG/HR PATCH T-DERMAL SCH (02:00)
[2016-08-05] MEDS: IMIPENEM/CILASTATIN INJ 500 MG in SODIUM CHLORIDE 0.9% INJ 100 ML IV SCH ×4 (02:08→20:49)
[2016-08-05] MEDS: HYDROmorphone HCL 2 MG TAB PO PRN ×4 (02:14→20:48)
[2016-08-05] MEDS: clonazePAM 0.5 MG TAB PO PRN (03:03)
[2016-08-05] MEDS: VANCOMYCIN 1,000 MG/NS 250 ML IV SCH ×4 (05:14→17:05)
[2016-08-05 08:00] VITALS: BP 122/84; PULSE 85; RESP 17; TEMP 96.8; O2SAT 100
[2016-08-05] MEDS: LACTOBACILLUS ACIDOPHILUS TAB PO SCH ×2 (08:58→20:54)
[2016-08-05] MEDS: BACLOFEN 10 MG TAB PO SCH ×3 (08:59→17:03)
[2016-08-05] MEDS: MIDODRINE 5 MG TAB PO SCH ×3 (08:59→17:03)
[2016-08-05] MEDS: MULTIVITAMIN TAB PO SCH (08:59)
[2016-08-05] MEDS: FAMOTIDINE 20 MG TAB PO SCH ×2 (09:00→20:54)
[2016-08-05] MEDS: DOCUSATE SODIUM 50 MG/SENNA 8.6 MG TAB PO SCH ×2 (09:00→20:54)
[2016-08-05] MEDS: HEPARIN SODIUM - SQ 10,000 UNITS/ML VIAL SQ SCH ×2 (09:00→20:54)
[2016-08-05] MEDS: LACTATED RINGER'S 1000 ML INJ 1,000 ML IV SCH ×2 (09:04→14:31)
[2016-08-05] MEDS: SODIUM HYPOCHLORITE 0.25% 500 ML BTL TOPICAL SCH (09:05)
[2016-08-05] MEDS: MUPIROCIN 2% OINT 22 GM TUBE TOPICAL SCH ×2 (09:05→20:55)
[2016-08-05] MEDS: SODIUM CHLORIDE 0.9% FLUSH 5 ML FLUSH FLUSH SCH ×2 (09:06→21:00)
[2016-08-05 12:00] VITALS: BP 108/56; PULSE 98; RESP 18; TEMP 97.5; O2SAT 99
--- NOTE | 2016-08-05 14:01 | MP ---
cc: KYLAH GIBBS M.D. DATE OF SURGERY 07/30/2016 PREOPERATIVE DIAGNOSIS Stage IV ischial decubitus ulcer on the left. POSTOPERATIVE DIAGNOSIS Stage IV ischial decubitus ulcer on the left. PROCEDURE Excisional debridement of left ischial pressure ulcer including muscle and bone using a Versa Jet. ANESTHESIA General SURGEONS Kylah Gibbs MD COPY MESSENGER Jam Rogers, MARY-C INDICATIONS This is a 31-year-old female with history of ischial decubitus ulcers, chronic. FINDINGS At the completion of the procedure, the wounds were clean. OPERATIVE TIME Approximately 20 minutes PROCEDURE The patient was seen preoperatively where the site and side were identified and marked. The patient was simultaneously being operated by Dr. Kirby Curry. Once Dr. Curry did his procedure, the patient was repositioned and the area was reprepped. A time out had been called at the first part of the procedure prior to Dr. Curry doing his procedure. The Versa Jet was then brought into the field and used to debride necrotic material from the wound edges and the wound bed. Some of the subcutaneous tissue, muscle, fascia and possibly parts of bone were debrided. Once the wound was cleansed, cautery was used to stop bleeding. The wound was then dressed with wet-to-dry gauze, this included all of the decubitus ulcers. They were then covered a ABD pads and taped into place. The patient was then given back to the care of the operating room staff, as well as the orthopedic department and transported to the recovery room in satisfactory condition having tolerated the procedure well. Postoperative instructions include resuming the quarter percent Dakin solution wet-to-dry dressing in 24 hours. MD DOMINIC Feliz/DORIAN /12:39 PM /1:56 PM
[2016-08-05 16:00] VITALS: BP 93/52; PULSE 98; RESP 17; TEMP 96.7; O2SAT 97
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
[2016-08-05 20:00] VITALS: BP 110/54; PULSE 96; RESP 18; TEMP 96.4; O2SAT 98
[2016-08-05] MEDS: DULoxetine HCl DR 20 MG CAP PO SCH (20:49)
[2016-08-06] VITALS: BP 112/58; PULSE 92; RESP 20; TEMP 97.4; O2SAT 96
[2016-08-06] MEDS: HYDROmorphone HCL 2 MG TAB PO PRN ×4 (03:23→21:00)
[2016-08-06] MEDS: IMIPENEM/CILASTATIN INJ 500 MG in SODIUM CHLORIDE 0.9% INJ 100 ML IV SCH ×4 (03:24→21:01)
[2016-08-06] MEDS: LACTATED RINGER'S 1000 ML INJ 1,000 ML IV SCH ×2 (04:17→06:56)
[2016-08-06] MEDS: VANCOMYCIN 1,000 MG/NS 250 ML IV SCH ×2 (06:17)
[2016-08-06] MEDS ORDERED: PHARMACY ORDERED LAB XX ONE (06:45)
[2016-08-06] MEDS: DOCUSATE SODIUM 50 MG/SENNA 8.6 MG TAB PO SCH ×2 (06:56→21:00)
[2016-08-06] MEDS: HEPARIN SODIUM - SQ 10,000 UNITS/ML VIAL SQ SCH ×2 (06:56→21:00)
[2016-08-06] MEDS: FAMOTIDINE 20 MG TAB PO SCH ×2 (06:56→21:00)
[2016-08-06 08:24] VITALS: BP 96/54; PULSE 104; RESP 16; TEMP 96.1; O2SAT 100
[2016-08-06] MEDS: BACLOFEN 10 MG TAB PO SCH ×3 (08:26→16:46)
[2016-08-06] MEDS: MULTIVITAMIN TAB PO SCH (08:26)
[2016-08-06] MEDS: MIDODRINE 5 MG TAB PO SCH ×3 (08:26→16:46)
[2016-08-06] MEDS: DULoxetine HCl DR 60 MG CAP PO SCH (08:26)
[2016-08-06] MEDS: LACTOBACILLUS ACIDOPHILUS TAB PO SCH ×2 (08:26→21:00)
[2016-08-06] MEDS: SODIUM HYPOCHLORITE 0.25% 500 ML BTL TOPICAL SCH (08:28)
[2016-08-06] MEDS: MUPIROCIN 2% OINT 22 GM TUBE TOPICAL SCH ×2 (08:29→21:01)
[2016-08-06] MEDS: SODIUM CHLORIDE 0.9% FLUSH 5 ML FLUSH FLUSH SCH ×2 (08:30→21:01)
--- NOTE | 2016-08-06 09:04 | PD.ORT.PN ---
Subjective Subjective Remarks Resting comfortably Objective Vitals Vital Signs Date Time Temp Pulse Resp B/P Pulse Ox O2 Delivery O2 Flow Rate FiO2 08/06/16 04:23 16 08/06/16 00:00 97.4 92 20 112/58 96 08/05/16 20:00 96.4 96 18 110/54 98 08/05/16 16:00 96.7 98 17 93/52 97 08/05/16 12:00 97.5 98 18 108/56 99 I/O 08/05/16 08/05/16 08/05/16 08/06/16 08/06/16 08/06/16 07:00 15:00 23:00 07:00 15:00 23:00 Intake Total 1747 ml 1177 ml 480 ml 360 ml Output Total 300 ml 200 ml 700 ml 800 ml Balance 1447 ml 977 ml -220 ml -440 ml Intake Oral 240 ml 575 ml 480 ml 360 ml IV Total 1507 ml 602 ml Output Urine Total 300 ml 200 ml 700 ml 800 ml Stool Total 0 ml # Bowel Movements 0 0 Result Diagram: 08/04/16 0530 08/04/16 0530 Objective Remarks Patient is awake and alert. She has no motor or sensory function of her legs. Examination of right hip reveals surgical hip incision is clean dry and intact. no signs of erythema or drainage Assessment & Plan Assessment and Plan Right hip dislocation with infection status post resection of femoral head and antibiotic bead placement POD 5 -daily dressing changes - xeroform and primapore -Antibiotics -khanh will remain for 2 1/2 -3 weeks from surgery Decubitus ulcer wound care per plastic surgery CECILIA STAPLES PA-C Aug 06, 2016 09:04
[2016-08-06 09:29] VITALS: BP 118/66
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
[2016-08-06 12:28] VITALS: BP 107/55; PULSE 104; RESP 18; TEMP 96.7; O2SAT 100
[2016-08-06 16:30] VITALS: BP 118/60; PULSE 103; RESP 18; TEMP 96.9; O2SAT 99
[2016-08-06] MEDS: VANCOMYCIN INJ 1,250 MG in SODIUM CHLOR 0.9% 250 ML INJ 250 ML IV SCH (16:46)
[2016-08-06 20:00] VITALS: BP 110/64; PULSE 90; RESP 20; TEMP 98; O2SAT 94
[2016-08-06] MEDS: DULoxetine HCl DR 20 MG CAP PO SCH ×2 (21:00→21:03)
[2016-08-07] VITALS: BP 112/60; PULSE 88; RESP 20; TEMP 97.4; O2SAT 96
[2016-08-07] MEDS: LACTATED RINGER'S 1000 ML INJ 1,000 ML IV SCH ×3 (00:17→10:17)
[2016-08-07] MEDS: IMIPENEM/CILASTATIN INJ 500 MG in SODIUM CHLORIDE 0.9% INJ 100 ML IV SCH ×4 (03:10→21:49)
[2016-08-07] MEDS: HYDROmorphone HCL 2 MG TAB PO PRN ×4 (03:11→21:53)
[2016-08-07] MEDS: VANCOMYCIN INJ 1,250 MG in SODIUM CHLOR 0.9% 250 ML INJ 250 ML IV SCH ×2 (05:02→18:10)
[2016-08-07 06:04] LABS: HEMATOCRIT 21.2 % (35.0-46.0); MEAN CELL VOLUME 79.4 FL (80.0-100.0); MEAN CORPUSCULAR HGB CONC 32.7 % (32.0-36.0); PLATELET COUNT 435 TH/MM3 (150-450); RED BLOOD COUNT 2.67 MIL/MM3 (4.00-5.30); RED CELL DISTRIBUTION WIDTH 17.8 % (11.6-17.2); WHITE BLOOD COUNT 5.8 TH/MM3 (4.0-11.0)
[2016-08-07 06:08] LABS: REVIEW FLAG FINAL
[2016-08-07] MEDS ORDERED: SODIUM CHLOR 0.9% 250 ML INJ 250 ML IV ONE (06:45)
[2016-08-07 07:34] LABS: POTASSIUM 3.6 MEQ/L (3.5-5.1)
[2016-08-07 08:00] VITALS: BP 111/59; PULSE 85; RESP 18; TEMP 95.9; O2SAT 98
[2016-08-07] MEDS: SODIUM CHLORIDE 0.9% FLUSH 5 ML FLUSH FLUSH SCH ×2 (08:36→21:00)
[2016-08-07] MEDS: BACLOFEN 10 MG TAB PO SCH ×3 (08:36→18:10)
[2016-08-07] MEDS: LACTOBACILLUS ACIDOPHILUS TAB PO SCH ×2 (08:37→21:49)
[2016-08-07] MEDS: MULTIVITAMIN TAB PO SCH (08:37)
[2016-08-07] MEDS: DOCUSATE SODIUM 50 MG/SENNA 8.6 MG TAB PO SCH ×2 (09:00→21:00)
[2016-08-07] MEDS: MUPIROCIN 2% OINT 22 GM TUBE TOPICAL SCH ×2 (09:00→21:00)
[2016-08-07] MEDS: SODIUM HYPOCHLORITE 0.25% 500 ML BTL TOPICAL SCH (09:00)
[2016-08-07] MEDS: HEPARIN SODIUM - SQ 10,000 UNITS/ML VIAL SQ SCH ×2 (09:00→21:00)
[2016-08-07] MEDS: FAMOTIDINE 20 MG TAB PO SCH ×2 (09:00→21:00)
[2016-08-07] MEDS: MIDODRINE 5 MG TAB PO SCH ×3 (09:00→18:10)
[2016-08-07] MEDS: DULoxetine HCl DR 60 MG CAP PO SCH (09:09)
[2016-08-07 09:50] VITALS: BP 89/53; PULSE 109; RESP 18; TEMP 97; O2SAT 97
[2016-08-07 10:11] VITALS: BP 102/53; PULSE 106; RESP 18; TEMP 96.6; O2SAT 97
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
[2016-08-07 12:00] VITALS: BP 125/82; PULSE 92; RESP 18; TEMP 97.9; O2SAT 100
[2016-08-07 13:59] LABS: HEMATOCRIT 27.6 % (35.0-46.0); REVIEW FLAG FINAL
[2016-08-07 20:00] VITALS: BP 126/76; PULSE 92; RESP 16; TEMP 97.1; O2SAT 100
[2016-08-08] VITALS: BP 106/54; PULSE 89; RESP 14; TEMP 96.7; O2SAT 98
[2016-08-08] MEDS: REMOVE OLD PATCH-FENTANYL TD SCH (01:00)
[2016-08-08] MEDS: IMIPENEM/CILASTATIN INJ 500 MG in SODIUM CHLORIDE 0.9% INJ 100 ML IV SCH ×4 (01:50→20:53)
[2016-08-08] MEDS: fentaNYL 75 MCG/HR PATCH T-DERMAL SCH (01:51)
[2016-08-08] MEDS: VANCOMYCIN INJ 1,250 MG in SODIUM CHLOR 0.9% 250 ML INJ 250 ML IV SCH (05:42)
[2016-08-08] MEDS: LACTATED RINGER'S 1000 ML INJ 1,000 ML IV SCH ×2 (05:43→16:17)
[2016-08-08] MEDS: HYDROmorphone HCL 2 MG TAB PO PRN ×4 (05:44→23:37)
[2016-08-08] MEDS ORDERED: PHARMACY ORDERED LAB XX ONE (05:45)
[2016-08-08 06:28] LABS: ANION GAP 6 MEQ/L (5-15); BICARBONATE 31.5 MEQ/L (21.0-32.0); BLOOD UREA NITROGEN 8 MG/DL (7-18); CHLORIDE 103 MEQ/L (98-107); GLOMERULAR FILTRATION RATE 336 ML/MIN (>89); POTASSIUM 3.6 MEQ/L (3.5-5.1); SODIUM (NA) 140 MEQ/L (136-145)
[2016-08-08 06:30] LABS: HEMATOCRIT 26.3 % (35.0-46.0); MEAN CELL VOLUME 80.1 FL (80.0-100.0); MEAN CORPUSCULAR HEMOGLOBIN 27.6 PG (27.0-34.0); MEAN CORPUSCULAR HGB CONC 34.4 % (32.0-36.0); PLATELET COUNT 437 TH/MM3 (150-450); RED BLOOD COUNT 3.28 MIL/MM3 (4.00-5.30); RED CELL DISTRIBUTION WIDTH 18.2 % (11.6-17.2); REVIEW FLAG FINAL; WHITE BLOOD COUNT 5.5 TH/MM3 (4.0-11.0)
[2016-08-08 06:53] LABS: FERRITIN 166 NG/ML (8-252); TRANSFERRIN IRON PROFILE 198 MG/DL (200-360); VANCOMYCIN TROUGH 11.5 MCG/ML (5.0-10.0)
[2016-08-08 08:00] VITALS: BP 94/53; PULSE 98; RESP 17; TEMP 96.3; O2SAT 98
[2016-08-08] MEDS: LACTOBACILLUS ACIDOPHILUS TAB PO SCH ×2 (08:15→20:54)
[2016-08-08] MEDS: BACLOFEN 10 MG TAB PO SCH ×3 (08:15→16:05)
[2016-08-08] MEDS: DULoxetine HCl DR 60 MG CAP PO SCH (08:15)
[2016-08-08] MEDS: MULTIVITAMIN TAB PO SCH (08:15)
[2016-08-08] MEDS: MIDODRINE 5 MG TAB PO SCH ×3 (08:15→16:06)
[2016-08-08] MEDS: DOCUSATE SODIUM 50 MG/SENNA 8.6 MG TAB PO SCH ×2 (08:16→21:00)
[2016-08-08] MEDS: MUPIROCIN 2% OINT 22 GM TUBE TOPICAL SCH ×2 (08:16→21:00)
[2016-08-08] MEDS: HEPARIN SODIUM - SQ 10,000 UNITS/ML VIAL SQ SCH ×2 (08:16→21:00)
[2016-08-08] MEDS: FAMOTIDINE 20 MG TAB PO SCH ×2 (08:16→21:00)
[2016-08-08] MEDS: SODIUM CHLORIDE 0.9% FLUSH 5 ML FLUSH FLUSH SCH ×2 (08:16→20:53)
[2016-08-08] MEDS: SODIUM HYPOCHLORITE 0.25% 500 ML BTL TOPICAL SCH (08:17)
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
[2016-08-08 12:00] VITALS: BP 116/65; PULSE 113; RESP 17; TEMP 98; O2SAT 97
[2016-08-08] MEDS: FLUCONAZOLE 100 MG TAB PO SCH (13:33)
[2016-08-08 16:00] VITALS: BP 109/56; PULSE 104; RESP 17; TEMP 98.1; O2SAT 99
[2016-08-08] MEDS: VANCOMYCIN 1,500 MG/NS 500 ML IV SCH ×2 (16:09)
[2016-08-08 20:00] VITALS: BP 111/67; PULSE 97; RESP 18; TEMP 97.6; O2SAT 100
[2016-08-08] MEDS: DULoxetine HCl DR 20 MG CAP PO SCH (23:35)
[2016-08-09] VITALS: BP 135/76; PULSE 104; RESP 18; TEMP 98.4; O2SAT 99
[2016-08-09] MEDS: IMIPENEM/CILASTATIN INJ 500 MG in SODIUM CHLORIDE 0.9% INJ 100 ML IV SCH ×4 (03:00→20:58)
[2016-08-09 05:32] LABS: HEMATOCRIT 26.9 % (35.0-46.0); MEAN CELL VOLUME 81.3 FL (80.0-100.0); MEAN CORPUSCULAR HEMOGLOBIN 26.3 PG (27.0-34.0); MEAN CORPUSCULAR HGB CONC 32.4 % (32.0-36.0); PLATELET COUNT 440 TH/MM3 (150-450); RED BLOOD COUNT 3.31 MIL/MM3 (4.00-5.30); RED CELL DISTRIBUTION WIDTH 18.8 % (11.6-17.2); REVIEW FLAG FINAL; WHITE BLOOD COUNT 6.3 TH/MM3 (4.0-11.0)
[2016-08-09 05:46] LABS: BICARBONATE 30.2 MEQ/L (21.0-32.0)
[2016-08-09] MEDS: VANCOMYCIN 1,500 MG/NS 500 ML IV SCH ×4 (06:03→18:27)
[2016-08-09] MEDS: LACTATED RINGER'S 1000 ML INJ 1,000 ML IV SCH ×3 (06:04→22:17)
[2016-08-09] MEDS: HYDROmorphone HCL 2 MG TAB PO PRN ×3 (06:05→18:27)
--- NOTE | 2016-08-09 07:17 | PD.ORT.PN ---
Subjective Subjective Remarks Resting comfortably Objective Vitals Vital Signs Date Time Temp Pulse Resp B/P Pulse Ox O2 Delivery O2 Flow Rate FiO2 08/09/16 00:00 98.4 104 18 135/76 99 08/08/16 20:00 97.6 97 18 111/67 100 08/08/16 18:29 20 08/08/16 16:00 98.1 104 17 109/56 99 08/08/16 12:00 98.0 113 17 116/65 97 08/08/16 08:00 96.3 98 17 94/53 98 I/O 08/08/16 08/08/16 08/08/16 08/09/16 08/09/16 08/09/16 07:00 15:00 23:00 07:00 15:00 23:00 Intake Total 360 ml 1356 ml 360 ml 240 ml Output Total 1100 ml 1100 ml 950 ml 450 ml Balance -740 ml 256 ml -590 ml -210 ml Intake Oral 360 ml 720 ml 360 ml 240 ml IV Total 636 ml Output Urine Total 1000 ml 1000 ml 750 ml 350 ml Stool Total 100 ml 100 ml 200 ml 100 ml Result Diagram: 08/09/16 0520 08/09/16 0520 Objective Remarks Patient is awake and alert. She has no motor or sensory function of her legs. Examination of right hip reveals surgical hip incision is clean dry and intact. She has had drainage out of her cubitus ulceration. Drainage including antibiotic beads are noted. No signs of erythema or drainage through incision Assessment & Plan Assessment and Plan Right hip dislocation with infection status post resection of femoral head and antibiotic bead placement POD 6 -daily dressing changes - xeroform and primapore -Antibiotics -khanh will remain for 2 1/2 -3 weeks from surgery Decubitus ulcer wound care per plastic surgery and wound care CECILIA STAPLES PA-C Aug 09, 2016 07:17
[2016-08-09 08:00] VITALS: BP 109/65; PULSE 95; RESP 16; TEMP 97.7; O2SAT 100
[2016-08-09] MEDS: FLUCONAZOLE 100 MG TAB PO SCH (08:26)
[2016-08-09] MEDS: MIDODRINE 5 MG TAB PO SCH ×3 (08:26→18:26)
[2016-08-09] MEDS: LACTOBACILLUS ACIDOPHILUS TAB PO SCH ×2 (08:26→20:57)
[2016-08-09] MEDS: MULTIVITAMIN TAB PO SCH (08:27)
[2016-08-09] MEDS: BACLOFEN 10 MG TAB PO SCH ×3 (08:27→18:26)
[2016-08-09] MEDS: DULoxetine HCl DR 60 MG CAP PO SCH (08:27)
[2016-08-09] MEDS: DOCUSATE SODIUM 50 MG/SENNA 8.6 MG TAB PO SCH ×2 (08:31→20:58)
[2016-08-09] MEDS: SODIUM CHLORIDE 0.9% FLUSH 5 ML FLUSH FLUSH SCH ×2 (08:31→20:58)
[2016-08-09] MEDS: FAMOTIDINE 20 MG TAB PO SCH ×2 (08:31→20:58)
[2016-08-09] MEDS: HEPARIN SODIUM - SQ 10,000 UNITS/ML VIAL SQ SCH ×2 (08:32→20:58)
[2016-08-09] MEDS: MUPIROCIN 2% OINT 22 GM TUBE TOPICAL SCH ×2 (08:32→20:58)
[2016-08-09] MEDS: SODIUM HYPOCHLORITE 0.25% 500 ML BTL TOPICAL SCH (09:00)
[2016-08-09 10:00] VITALS: BP 102/66; PULSE 115; RESP 17; TEMP 98.2; O2SAT 99
[2016-08-09 16:00] VITALS: BP 142/93; PULSE 85; RESP 17; TEMP 97.5; O2SAT 100
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
[2016-08-09 20:00] VITALS: BP 102/88; PULSE 82; RESP 18; TEMP 97.8; O2SAT 100
[2016-08-09 21:21] VITALS: BP 107/60
[2016-08-09] MEDS ORDERED: SUMAtriptan SUCCINATE 25 MG TAB PO ONE (22:00)
[2016-08-09] MEDS: DULoxetine HCl DR 20 MG CAP PO SCH (22:16)
[2016-08-10] MEDS: HYDROmorphone HCL 2 MG TAB PO PRN ×4 (02:34→22:01)
[2016-08-10] MEDS: IMIPENEM/CILASTATIN INJ 500 MG in SODIUM CHLORIDE 0.9% INJ 100 ML IV SCH ×3 (03:12→15:32)
[2016-08-10] MEDS ORDERED: PHARMACY ORDERED LAB XX ONE (05:45)
[2016-08-10 05:48] LABS: HEMATOCRIT 26.6 % (35.0-46.0); MEAN CELL VOLUME 80.7 FL (80.0-100.0); MEAN CORPUSCULAR HGB CONC 33.5 % (32.0-36.0); PLATELET COUNT 425 TH/MM3 (150-450); RED BLOOD COUNT 3.29 MIL/MM3 (4.00-5.30); RED CELL DISTRIBUTION WIDTH 18.7 % (11.6-17.2); REVIEW FLAG FINAL; WHITE BLOOD COUNT 5.7 TH/MM3 (4.0-11.0)
[2016-08-10] MEDS: VANCOMYCIN 1,500 MG/NS 500 ML IV SCH ×4 (06:04→18:33)
[2016-08-10 08:00] VITALS: BP 115/62; PULSE 97; RESP 20; TEMP 97.6; O2SAT 100
[2016-08-10] MEDS: LACTATED RINGER'S 1000 ML INJ 1,000 ML IV SCH ×2 (08:17→18:17)
[2016-08-10] MEDS: SODIUM CHLORIDE 0.9% FLUSH 5 ML FLUSH FLUSH SCH ×2 (09:00→21:00)
[2016-08-10] MEDS: HEPARIN SODIUM - SQ 10,000 UNITS/ML VIAL SQ SCH ×2 (09:00→21:00)
[2016-08-10] MEDS: DOCUSATE SODIUM 50 MG/SENNA 8.6 MG TAB PO SCH ×2 (09:00→21:00)
[2016-08-10] MEDS: FAMOTIDINE 20 MG TAB PO SCH ×2 (09:18→21:00)
[2016-08-10] MEDS: BACLOFEN 10 MG TAB PO SCH ×3 (09:19→18:34)
[2016-08-10] MEDS: FLUCONAZOLE 100 MG TAB PO SCH (09:19)
[2016-08-10] MEDS: MULTIVITAMIN TAB PO SCH (09:19)
[2016-08-10] MEDS: MIDODRINE 5 MG TAB PO SCH ×3 (09:19→18:34)
[2016-08-10] MEDS: LACTOBACILLUS ACIDOPHILUS TAB PO SCH ×2 (09:20→22:00)
[2016-08-10] MEDS: DULoxetine HCl DR 60 MG CAP PO SCH (09:30)
[2016-08-10] MEDS: SODIUM HYPOCHLORITE 0.25% 500 ML BTL TOPICAL SCH (09:31)
[2016-08-10] MEDS: MUPIROCIN 2% OINT 22 GM TUBE TOPICAL SCH ×2 (09:31→21:00)
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
[2016-08-10 12:00] VITALS: BP 110/64; PULSE 86; RESP 20; TEMP 96.9; O2SAT 100
[2016-08-10 16:00] VITALS: BP 106/57; PULSE 100; RESP 20; TEMP 98.4; O2SAT 98
--- NOTE | 2016-08-10 16:46 | HHI.FF ---
Infusion Therapy Location of Infusion Therapy: [facility] Infusion Therapy Order Patient Information Patient Weight 66 kg Diagnosis: (1) Osteomyelitis (2) Septic joint Coded Allergies: Penicillin (Verified Allergy, Severe, HIVES, 07/23/16) Daptomycin (Verified Allergy, Mild, Rash, 07/23/16) *MDRO Multi-Drug Resistant Organism (Verified Adverse Reaction, Unknown, ) MRSA (back wound) - 06/16/2015; MRSA (hip)-07/30/16 XDR-Pseudomonas Aeruginosa (foot)-07/23/16 Administer Medication Vancomycin 1.5 grams IV q 12 hours Stop Treatment: Sep 10, 2016 Additional Information Venous access: PICC Line Additional Instructions [x] Peripheral flush and dressing changes per protocol [x] Implanted port and central casing in line setter: * Implanted port: 10 ml Normal Saline followed by 5 ml Heparin 100 units/ml Heparin flush after each use and monthly to maintain. [] May leave port accessed during therapy. [] May leave peripheral site accessed for duration of therapy. [x] If patient has SOB or respiratory distress, check oxygen saturation. If less than 90% or clinical signs of respiratory distress, administer oxygen at 2 L/min. via nasal cannula and notify physician. [x] Anaphylaxis/Reaction orders: * Stop infusion. * Keep IV line open with saline flush. * Notify physician. * Monitor vital signs every 15 minutes until symptoms resolve. * Check Oxygen saturation; Oxygen at 2 L/min. via nasal cannula if less than 90% or clinical signs of respiratory distress. * Administer diphenhydramine (Benadryl) 25 mg IV STAT, (unless patient has received as pre-med). May repeat once, if necessary. * Solu-Cortef 250 mg IVP over 30-60 seconds, use 100 mg vials for each dissolution. * Epinephrine (1mg/1 ml) 0.3 mg subcutaneously or IVP now with any signs of respiratory distress. * Check with physician for new additional pre-med orders if patient is re- challenged or re-treated. [x] May remove PICC line when treatment complete, after confirming with Physician. [x] If the patient is admitted to the hospital, the ED, or transferred via [facility] , complete transfer form including medication reconciliation order sheet. Laboratory Tests Weekly Labs: BMP, Vancomycin Trough Additional Information fax lab to Dr Abdi Almaguer [phone]. Blane Biggs MD Aug 10, 2016 16:46
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
[2016-08-10 20:00] VITALS: BP 118/66; PULSE 85; RESP 18; TEMP 97.8; O2SAT 100
[2016-08-10] MEDS: DULoxetine HCl DR 20 MG CAP PO SCH (22:00)
[2016-08-11] VITALS: BP 108/64; PULSE 82; RESP 20; TEMP 97.6; O2SAT 96
[2016-08-11] MEDS: REMOVE OLD PATCH-FENTANYL TD SCH (01:00)
[2016-08-11] MEDS: fentaNYL 75 MCG/HR PATCH T-DERMAL SCH (02:30)
[2016-08-11] MEDS: LACTATED RINGER'S 1000 ML INJ 1,000 ML IV SCH ×2 (04:17→10:42)
[2016-08-11] MEDS: HYDROmorphone HCL 2 MG TAB PO PRN ×4 (04:36→23:04)
[2016-08-11] MEDS: VANCOMYCIN 1,500 MG/NS 500 ML IV SCH ×4 (06:33→17:28)
[2016-08-11 08:00] VITALS: BP 110/64; PULSE 98; RESP 17; TEMP 98.5; O2SAT 100
[2016-08-11] MEDS: MIDODRINE 5 MG TAB PO SCH ×3 (08:56→17:28)
[2016-08-11] MEDS: LACTOBACILLUS ACIDOPHILUS TAB PO SCH ×2 (08:56→21:07)
[2016-08-11] MEDS: BACLOFEN 10 MG TAB PO SCH ×3 (08:56→17:28)
[2016-08-11] MEDS: MULTIVITAMIN TAB PO SCH (08:56)
[2016-08-11] MEDS: FLUCONAZOLE 100 MG TAB PO SCH (08:57)
[2016-08-11] MEDS: SODIUM CHLORIDE 0.9% FLUSH 5 ML FLUSH FLUSH SCH ×2 (08:58→21:08)
[2016-08-11] MEDS: FAMOTIDINE 20 MG TAB PO SCH ×2 (08:59→21:00)
[2016-08-11] MEDS: DOCUSATE SODIUM 50 MG/SENNA 8.6 MG TAB PO SCH ×2 (08:59→21:00)
[2016-08-11] MEDS: HEPARIN SODIUM - SQ 10,000 UNITS/ML VIAL SQ SCH ×2 (09:00→21:00)
[2016-08-11] MEDS: MUPIROCIN 2% OINT 22 GM TUBE TOPICAL SCH ×2 (09:00→21:00)
[2016-08-11] MEDS: SODIUM HYPOCHLORITE 0.25% 500 ML BTL TOPICAL SCH (09:00)
[2016-08-11] MEDS: DULoxetine HCl DR 60 MG CAP PO SCH (09:07)
[2016-08-11 12:00] VITALS: BP 108/68; PULSE 97; RESP 18; TEMP 98.4; O2SAT 100
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
[2016-08-11 20:00] VITALS: BP 100/54; PULSE 98; RESP 19; TEMP 97.6; O2SAT 98
[2016-08-11] MEDS: DULoxetine HCl DR 20 MG CAP PO SCH (21:07)
[2016-08-11 23:57] VITALS: BP 111/62; PULSE 100; RESP 18; TEMP 97.8; O2SAT 98
[2016-08-12] MEDS: LACTATED RINGER'S 1000 ML INJ 1,000 ML IV SCH ×3 (00:17→20:17)
[2016-08-12 04:00] VITALS: BP 117/65
[2016-08-12] MEDS: VANCOMYCIN 1,500 MG/NS 500 ML IV SCH ×4 (05:23→17:37)
[2016-08-12] MEDS: HYDROmorphone HCL 2 MG TAB PO PRN ×4 (05:23→23:49)
[2016-08-12 07:57] VITALS: BP 117/78; PULSE 90; RESP 20; TEMP 98.5; O2SAT 100
[2016-08-12] MEDS: MIDODRINE 5 MG TAB PO SCH ×3 (08:34→17:37)
[2016-08-12] MEDS: FLUCONAZOLE 100 MG TAB PO SCH (08:35)
[2016-08-12] MEDS: LACTOBACILLUS ACIDOPHILUS TAB PO SCH ×2 (08:35→21:04)
[2016-08-12] MEDS: BACLOFEN 10 MG TAB PO SCH ×3 (08:36→17:39)
[2016-08-12] MEDS: HEPARIN SODIUM - SQ 10,000 UNITS/ML VIAL SQ SCH ×2 (08:36→21:00)
[2016-08-12] MEDS: FAMOTIDINE 20 MG TAB PO SCH ×2 (08:36→21:00)
[2016-08-12] MEDS: DOCUSATE SODIUM 50 MG/SENNA 8.6 MG TAB PO SCH ×2 (08:36→21:00)
[2016-08-12] MEDS: MULTIVITAMIN TAB PO SCH (08:37)
[2016-08-12] MEDS: SODIUM HYPOCHLORITE 0.25% 500 ML BTL TOPICAL SCH (08:37)
[2016-08-12] MEDS: MUPIROCIN 2% OINT 22 GM TUBE TOPICAL SCH ×2 (08:37→21:00)
[2016-08-12] MEDS: DULoxetine HCl DR 60 MG CAP PO SCH (08:38)
[2016-08-12] MEDS: SODIUM CHLORIDE 0.9% FLUSH 5 ML FLUSH FLUSH SCH ×2 (08:38→21:04)
[2016-08-12] MEDS ORDERED: CLON.5 PO (10:27)
[2016-08-12] MEDS ORDERED: DILA2TAB2 PO (10:27)
[2016-08-12] MEDS ORDERED: FENT75DI T-DERMAL (10:27)
[2016-08-12 12:00] VITALS: BP 103/62; PULSE 120; RESP 17; TEMP 99.1; O2SAT 100
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
[2016-08-12 16:00] VITALS: BP 116/60; PULSE 120; RESP 18; TEMP 100.5; O2SAT 99
[2016-08-12 20:00] VITALS: BP 119/67; PULSE 106; RESP 20; TEMP 99.3; O2SAT 100
[2016-08-12] MEDS: DULoxetine HCl DR 20 MG CAP PO SCH (21:04)
[2016-08-13] VITALS: BP 109/55; PULSE 120; RESP 20; TEMP 99.3; O2SAT 97
[2016-08-13 04:00] VITALS: BP 118/72; PULSE 90; RESP 18; TEMP 97.5; O2SAT 99
[2016-08-13] MEDS: HYDROmorphone HCL 2 MG TAB PO PRN ×3 (05:52→18:12)
[2016-08-13] MEDS: VANCOMYCIN 1,500 MG/NS 500 ML IV SCH ×4 (05:52→18:13)
[2016-08-13] MEDS: LACTATED RINGER'S 1000 ML INJ 1,000 ML IV SCH ×2 (05:52→16:17)
[2016-08-13 07:45] VITALS: BP 95/43; PULSE 99; RESP 20; TEMP 97.8; O2SAT 100
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
[2016-08-13] MEDS: FAMOTIDINE 20 MG TAB PO SCH ×2 (09:00→21:00)
[2016-08-13] MEDS: DOCUSATE SODIUM 50 MG/SENNA 8.6 MG TAB PO SCH ×2 (09:00→21:00)
[2016-08-13] MEDS: HEPARIN SODIUM - SQ 10,000 UNITS/ML VIAL SQ SCH ×2 (09:00→21:00)
[2016-08-13] MEDS: FLUCONAZOLE 100 MG TAB PO SCH (09:29)
[2016-08-13] MEDS: MULTIVITAMIN TAB PO SCH (09:29)
[2016-08-13] MEDS: BACLOFEN 10 MG TAB PO SCH ×3 (09:29→18:12)
[2016-08-13] MEDS: MIDODRINE 5 MG TAB PO SCH ×3 (09:30→18:12)
[2016-08-13] MEDS: SODIUM CHLORIDE 0.9% FLUSH 5 ML FLUSH FLUSH SCH ×2 (09:30→22:21)
[2016-08-13] MEDS: DULoxetine HCl DR 60 MG CAP PO SCH (09:31)
[2016-08-13] MEDS: SODIUM HYPOCHLORITE 0.25% 500 ML BTL TOPICAL SCH (09:31)
[2016-08-13] MEDS: MUPIROCIN 2% OINT 22 GM TUBE TOPICAL SCH ×2 (09:32→21:00)
[2016-08-13] MEDS: LACTOBACILLUS ACIDOPHILUS TAB PO SCH ×2 (09:34→22:20)
[2016-08-13 11:42] VITALS: BP 114/72; PULSE 94; RESP 19; TEMP 98.3; O2SAT 100
[2016-08-13 16:00] VITALS: BP 112/65; PULSE 102; RESP 20; TEMP 99.2; O2SAT 98
--- NOTE | 2016-08-13 17:26 | PD.ORT.PN ---
Subjective Subjective Remarks s/p right hip dislocation with infection doing well. pain controlled Objective Vitals Vital Signs Date Time Temp Pulse Resp B/P Pulse Ox O2 Delivery O2 Flow Rate FiO2 08/13/16 16:00 99.2 102 20 112/65 98 08/13/16 11:42 98.3 94 19 114/72 100 08/13/16 07:45 97.8 99 20 95/43 100 08/13/16 04:00 97.5 90 18 118/72 99 08/13/16 00:00 99.3 120 20 109/55 97 08/12/16 20:00 99.3 106 20 119/67 100 I/O 08/12/16 08/12/16 08/12/16 08/13/16 08/13/16 08/13/16 07:00 15:00 23:00 07:00 15:00 23:00 Intake Total 323 ml 760 ml 990 ml 409 ml 1080 ml Output Total 300 ml 450 ml 700 ml 300 ml 1500 ml Balance 23 ml 310 ml 290 ml 109 ml -420 ml Intake Oral 240 ml 760 ml 480 ml 320 ml 1080 ml IV Total 83 ml 510 ml 89 ml Output Urine Total 300 ml 450 ml 700 ml 300 ml 900 ml Stool Total 600 ml # Bowel Movements 0 0 Result Diagram: 08/10/16 0520 08/12/16 0530 Objective Remarks Patient is awake and alert. She has no motor or sensory function of her legs. Examination of right hip reveals surgical hip incision is clean dry and intact. She has had drainage out of her cubitus ulceration. Drainage including antibiotic beads are noted. No signs of erythema or drainage through incision Assessment & Plan Assessment and Plan Right hip dislocation with infection status post resection of femoral head and antibiotic bead placement POD 14 -daily dressing changes - xeroform and primapore -Antibiotics -khanh will remain for 2 1/2 -3 weeks from surgery Decubitus ulcer wound care per plastic surgery and wound care Timur Miller Aug 13, 2016 17:26
[2016-08-13 20:00] VITALS: BP_SYST 110; BP_SYST 90; BP_DIAS 51; BP_DIAS 82; PULSE 85; PULSE 95; RESP 18; TEMP 97.2; TEMP 98.6; O2SAT 100; O2SAT 98
[2016-08-13] MEDS: DULoxetine HCl DR 20 MG CAP PO SCH (22:20)
[2016-08-14] VITALS (7 sets, daily range): BP systolic 103–135; BP diastolic 55–77; PULSE 71–110; RESP 16–18; TEMP 96.9–100; O2SAT 95–100
[2016-08-14] MEDS: HYDROmorphone HCL 2 MG TAB PO PRN ×4 (00:08→18:05)
[2016-08-14] MEDS: fentaNYL 75 MCG/HR PATCH T-DERMAL SCH (00:13)
[2016-08-14] MEDS: REMOVE OLD PATCH-FENTANYL TD SCH (00:13)
[2016-08-14] MEDS: LACTATED RINGER'S 1000 ML INJ 1,000 ML IV SCH ×3 (01:27→20:54)
[2016-08-14] MEDS: VANCOMYCIN 1,500 MG/NS 500 ML IV SCH ×4 (05:43→18:04)
[2016-08-14] MEDS: FLUCONAZOLE 100 MG TAB PO SCH (08:43)
[2016-08-14] MEDS: MIDODRINE 5 MG TAB PO SCH ×3 (08:43→18:04)
[2016-08-14] MEDS: DULoxetine HCl DR 60 MG CAP PO SCH (08:43)
[2016-08-14] MEDS: BACLOFEN 10 MG TAB PO SCH ×3 (08:43→18:04)
[2016-08-14] MEDS: LACTOBACILLUS ACIDOPHILUS TAB PO SCH ×2 (08:43→20:48)
[2016-08-14] MEDS: MULTIVITAMIN TAB PO SCH (08:43)
[2016-08-14] MEDS: SODIUM CHLORIDE 0.9% FLUSH 5 ML FLUSH FLUSH SCH ×2 (08:48→20:52)
[2016-08-14] MEDS: DOCUSATE SODIUM 50 MG/SENNA 8.6 MG TAB PO SCH ×2 (08:48→20:51)
[2016-08-14] MEDS: FAMOTIDINE 20 MG TAB PO SCH ×2 (08:48→20:49)
[2016-08-14] MEDS: SODIUM HYPOCHLORITE 0.25% 500 ML BTL TOPICAL SCH (08:49)
[2016-08-14] MEDS: HEPARIN SODIUM - SQ 10,000 UNITS/ML VIAL SQ SCH ×2 (08:49→20:51)
[2016-08-14] MEDS: MUPIROCIN 2% OINT 22 GM TUBE TOPICAL SCH ×2 (08:49→20:53)
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
[2016-08-14] MEDS: DULoxetine HCl DR 20 MG CAP PO SCH (20:48)
[2016-08-15 00:25] VITALS: BP 116/66; PULSE 92; RESP 17; TEMP 98.5; O2SAT 98
[2016-08-15] MEDS: HYDROmorphone HCL 2 MG TAB PO PRN ×4 (00:30→18:31)
[2016-08-15] MEDS: VANCOMYCIN 1,500 MG/NS 500 ML IV SCH ×4 (06:33→18:31)
[2016-08-15 07:26] LABS: AUTOMATED NEUTROPHIL # 4.5 TH/MM3 (1.8-7.7); BASOPHIL % 0.5 % (0.0-2.0); EOSINOPHIL # 0.2 TH/MM3 (0-0.4); EOSINOPHIL % 2.6 % (0.0-4.0); HEMATOCRIT 24.6 % (35.0-46.0); HEMO FLAGS DIFF FINAL; LYMPHOCYTE # 1.7 TH/MM3 (1.0-4.8); MEAN CELL VOLUME 79.8 FL (80.0-100.0); MEAN CORPUSCULAR HEMOGLOBIN 27.3 PG (27.0-34.0); MEAN CORPUSCULAR HGB CONC 34.2 % (32.0-36.0); MONO % 7.5 % (0.0-8.0); NEUT % 65.4 % (16.0-70.0); PLATELET COUNT 332 TH/MM3 (150-450); RED BLOOD COUNT 3.08 MIL/MM3 (4.00-5.30); RED CELL DISTRIBUTION WIDTH 18.7 % (11.6-17.2); WHITE BLOOD COUNT 6.9 TH/MM3 (4.0-11.0)
[2016-08-15 07:34] LABS: ALKALINE PHOSPHATASE 205 U/L (45-117); ALT (GPT) 22 U/L (10-53); ANION GAP 7 MEQ/L (5-15); AST (GOT) 24 U/L (15-37); BICARBONATE 28.7 MEQ/L (21.0-32.0); BLOOD UREA NITROGEN 11 MG/DL (7-18); CHLORIDE 102 MEQ/L (98-107); GLOMERULAR FILTRATION RATE 270 ML/MIN (>89); POTASSIUM 3.4 MEQ/L (3.5-5.1); SODIUM (NA) 138 MEQ/L (136-145); TOTAL BILIRUBIN ADULT 0.3 MG/DL (0.2-1.0)
[2016-08-15 08:00] VITALS: BP 94/50; PULSE 107; RESP 14; TEMP 97; O2SAT 99
[2016-08-15] MEDS: LACTATED RINGER'S 1000 ML INJ 1,000 ML IV SCH ×2 (08:17→18:17)
[2016-08-15] MEDS: SODIUM CHLORIDE 0.9% FLUSH 5 ML FLUSH FLUSH SCH ×2 (08:54→21:00)
[2016-08-15] MEDS: LACTOBACILLUS ACIDOPHILUS TAB PO SCH ×2 (08:55→21:22)
[2016-08-15] MEDS: FAMOTIDINE 20 MG TAB PO SCH ×2 (08:55→21:00)
[2016-08-15] MEDS: DOCUSATE SODIUM 50 MG/SENNA 8.6 MG TAB PO SCH ×2 (08:55→21:00)
[2016-08-15] MEDS: DULoxetine HCl DR 60 MG CAP PO SCH (08:55)
[2016-08-15] MEDS: BACLOFEN 10 MG TAB PO SCH ×3 (08:56→18:31)
[2016-08-15] MEDS: MIDODRINE 5 MG TAB PO SCH ×3 (08:56→18:31)
[2016-08-15] MEDS: FLUCONAZOLE 100 MG TAB PO SCH (08:56)
[2016-08-15] MEDS: SODIUM HYPOCHLORITE 0.25% 500 ML BTL TOPICAL SCH (08:56)
[2016-08-15] MEDS: MUPIROCIN 2% OINT 22 GM TUBE TOPICAL SCH ×2 (08:56→21:00)
[2016-08-15] MEDS: HEPARIN SODIUM - SQ 10,000 UNITS/ML VIAL SQ SCH ×2 (08:56→21:00)
[2016-08-15] MEDS: MULTIVITAMIN TAB PO SCH (08:58)
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
[2016-08-15] MEDS ORDERED: POTASSIUM CHLORIDE 20 MEQ CONTROLLED RELEASE TAB PO ONE (09:15)
[2016-08-15 12:00] VITALS: BP 128/79; PULSE 107; RESP 16; TEMP 98.9; O2SAT 100
[2016-08-15 16:00] VITALS: BP 158/98; PULSE 96; RESP 18; TEMP 99.6; O2SAT 98
[2016-08-15 20:09] VITALS: BP 153/83; PULSE 98; RESP 16; TEMP 99; O2SAT 98
[2016-08-15] MEDS: DULoxetine HCl DR 20 MG CAP PO SCH (21:22)
[2016-08-15 23:58] VITALS: BP 101/56; PULSE 110; RESP 18; TEMP 98; O2SAT 96
[2016-08-16] MEDS: HYDROmorphone HCL 2 MG TAB PO PRN ×4 (02:39→21:07)
[2016-08-16] MEDS: LACTATED RINGER'S 1000 ML INJ 1,000 ML IV SCH ×2 (03:40→19:05)
[2016-08-16] MEDS ORDERED: PHARMACY ORDERED LAB XX ONE (05:45)
[2016-08-16] MEDS: VANCOMYCIN 1,500 MG/NS 500 ML IV SCH ×4 (06:17→18:30)
[2016-08-16 06:29] VITALS: BP 100/57
[2016-08-16 08:00] VITALS: BP 118/60; PULSE 97; RESP 17; TEMP 97.9; O2SAT 99
[2016-08-16] MEDS: DULoxetine HCl DR 60 MG CAP PO SCH (08:57)
[2016-08-16] MEDS: MIDODRINE 5 MG TAB PO SCH ×3 (08:57→18:30)
[2016-08-16] MEDS: MULTIVITAMIN TAB PO SCH (08:57)
[2016-08-16] MEDS: FAMOTIDINE 20 MG TAB PO SCH ×2 (08:58→21:00)
[2016-08-16] MEDS: HEPARIN SODIUM - SQ 10,000 UNITS/ML VIAL SQ SCH ×2 (08:58→21:00)
[2016-08-16] MEDS: FLUCONAZOLE 100 MG TAB PO SCH (08:58)
[2016-08-16] MEDS: DOCUSATE SODIUM 50 MG/SENNA 8.6 MG TAB PO SCH ×2 (08:58→21:00)
[2016-08-16] MEDS: LACTOBACILLUS ACIDOPHILUS TAB PO SCH ×2 (08:58→21:07)
[2016-08-16] MEDS: BACLOFEN 10 MG TAB PO SCH ×3 (08:58→18:30)
[2016-08-16] MEDS: SODIUM CHLORIDE 0.9% FLUSH 5 ML FLUSH FLUSH SCH ×2 (08:59→21:08)
[2016-08-16] MEDS: SODIUM HYPOCHLORITE 0.25% 500 ML BTL TOPICAL SCH (09:00)
[2016-08-16] MEDS: MUPIROCIN 2% OINT 22 GM TUBE TOPICAL SCH ×2 (09:00→21:00)
[2016-08-16 12:00] VITALS: BP 118/76; PULSE 84; RESP 17; TEMP 97.4; O2SAT 96
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
[2016-08-16 16:00] VITALS: BP 114/70; PULSE 96; RESP 17; TEMP 97.3; O2SAT 100
[2016-08-16 20:00] VITALS: BP 117/72; PULSE 81; RESP 16; TEMP 96.9; O2SAT 99
[2016-08-16] MEDS: DULoxetine HCl DR 20 MG CAP PO SCH (21:07)
[2016-08-17] VITALS: BP 125/79; PULSE 90; RESP 16; TEMP 97.7; O2SAT 100
[2016-08-17] MEDS: REMOVE OLD PATCH-FENTANYL TD SCH (00:24)
[2016-08-17] MEDS: fentaNYL 75 MCG/HR PATCH T-DERMAL SCH (00:24)
[2016-08-17] MEDS: VANCOMYCIN 1,500 MG/NS 500 ML IV SCH ×2 (05:03)
[2016-08-17] MEDS: HYDROmorphone HCL 2 MG TAB PO PRN ×2 (05:04→10:56)
[2016-08-17 08:00] VITALS: BP 117/71; PULSE 108; RESP 17; TEMP 98.2; O2SAT 100
[2016-08-17] MEDS: MIDODRINE 5 MG TAB PO SCH ×2 (08:10→11:58)
[2016-08-17] MEDS: BACLOFEN 10 MG TAB PO SCH ×2 (08:11→11:58)
[2016-08-17] MEDS: LACTOBACILLUS ACIDOPHILUS TAB PO SCH (08:11)
[2016-08-17] MEDS: FLUCONAZOLE 100 MG TAB PO SCH (08:11)
[2016-08-17] MEDS: DULoxetine HCl DR 60 MG CAP PO SCH (08:11)
[2016-08-17] MEDS: SODIUM CHLORIDE 0.9% FLUSH 5 ML FLUSH FLUSH SCH (08:11)
[2016-08-17] MEDS: DOCUSATE SODIUM 50 MG/SENNA 8.6 MG TAB PO SCH (08:12)
[2016-08-17] MEDS: FAMOTIDINE 20 MG TAB PO SCH (08:12)
[2016-08-17] MEDS: HEPARIN SODIUM - SQ 10,000 UNITS/ML VIAL SQ SCH (08:13)
[2016-08-17] MEDS: MUPIROCIN 2% OINT 22 GM TUBE TOPICAL SCH (08:13)
[2016-08-17] MEDS: SODIUM HYPOCHLORITE 0.25% 500 ML BTL TOPICAL SCH (08:13)
[2016-08-17] MEDS: MULTIVITAMIN TAB PO SCH (08:14)
[2016-08-17] MEDS: LACTATED RINGER'S 1000 ML INJ 1,000 ML IV SCH (09:19)
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
[2016-08-17 11:56] VITALS: RESP 16
== END 2016-08-17 14:46 | DRG 853 ==
LOC: NEPC 17:53 → NEDA 22:13 → N07A 23:58
PROVIDERS: ADMIT Internal Medicine; ATTEND Internal Medicine
PROC: 0T9B70Z Drainage of Bladder with Drainage Device, Via Natural or Artificial Opening (ICD-10-PCS; 2016-07-23)
PROC: 0JDL0ZZ Extraction of Right Upper Leg Subcutaneous Tissue and Fascia, Open Approach (ICD-10-PCS; 2016-07-30)
PROC: 0JD73ZZ Extraction of Back Subcutaneous Tissue and Fascia, Percutaneous Approach (ICD-10-PCS; 2016-07-30)
PROC: 3E0U029 Introduction of Other Anti-infective into Joints, Open Approach (ICD-10-PCS; 2016-07-30)
PROC: 0QT60ZZ Resection of Right Upper Femur, Open Approach (ICD-10-PCS; principal; 2016-07-30 11:08)
PROC: 0QB30ZZ Excision of Left Pelvic Bone, Open Approach (ICD-10-PCS; 2016-08-02)
PROC: 02HV33Z Insertion of Infusion Device into Superior Vena Cava, Percutaneous Approach (ICD-10-PCS; 2016-08-02)
PROC: 30233N1 Transfusion of Nonautologous Red Blood Cells into Peripheral Vein, Percutaneous Approach (ICD-10-PCS; 2016-08-07)
DX: A41.01 Sepsis due to Methicillin susceptible Staphylococcus aureus (principal); G82.50 Quadriplegia, unspecified; L89.224 Pressure ulcer of left hip, stage 4; L89.154 Pressure ulcer of sacral region, stage 4; L89.214 Pressure ulcer of right hip, stage 4; M86.19 Other acute osteomyelitis, multiple sites; N39.0 Urinary tract infection, site not specified; L97.419 Non-pressure chronic ulcer of right heel and midfoot with unspecified severity; L97.429 Non-pressure chronic ulcer of left heel and midfoot with unspecified severity; M00.051 Staphylococcal arthritis, right hip; D62 Acute posthemorrhagic anemia; M46.28 Osteomyelitis of vertebra, sacral and sacrococcygeal region; M89.751 Major osseous defect, right pelvic region and thigh; N31.9 Neuromuscular dysfunction of bladder, unspecified; I10 Essential (primary) hypertension; G89.4 Chronic pain syndrome; G47.00 Insomnia, unspecified; M79.5 Residual foreign body in soft tissue; M24.451 Recurrent dislocation, right hip; E87.6 Hypokalemia; I95.2 Hypotension due to drugs; B37.2 Candidiasis of skin and nail; D63.8 Anemia in other chronic diseases classified elsewhere; T40.605A Adverse effect of unspecified narcotics, initial encounter; S24.109S Unspecified injury at unspecified level of thoracic spinal cord, sequela; T83.098A Other mechanical complication of other urinary catheter, initial encounter; F31.9 Bipolar disorder, unspecified; F41.9 Anxiety disorder, unspecified; F17.210 Nicotine dependence, cigarettes, uncomplicated; V49.9XXS Car occupant (driver) (passenger) injured in unspecified traffic accident, sequela; Z53.29 Procedure and treatment not carried out because of patient's decision for other reasons; Z85.41 Personal history of malignant neoplasm of cervix uteri; Z86.14 Personal history of Methicillin resistant Staphylococcus aureus infection; Z88.0 Allergy status to penicillin; Z93.3 Colostomy status; Z98.1 Arthrodesis status
CPT/HCPCS: 36430; 36569; 71010; 72193; 73650; 76937; 80048; 80053; 80202; 81001; 82550; 82565; 82607; 82728; 82746; 83540; 83550; 83605; 83690; 83735; 84132; 84155; 85007; 85014; 85018; 85025; 85027; 85610; 85730; 86140; 86403; 86850; 86900; 86901; 86920; 87015; 87040; 87070; 87077; 87086; 87102; 87116; 87147; 87176; 87185; 87186; 87205; 87206; 96374; 96375; J0131; J0692; J0743; J1170; J1580; J1642; J1644; J2250; J2370; J2405; J3010; J3260; J3370; J3480; J7030; J7040; J7050; J7120; P9016; Q9967

== ENCOUNTER 2016-09-28 15:11 | Inpatient (IN) | payer OTHER ==
[~2016-09-28] VITALS: Ht 157.5 cm; Wt 77.5 kg
[~2016-09-28 15:11] MED LIST changes: +ASCO500T PO; -CLOT1CRE TOP; -COLL30T TOP; -CYMB60CA PO; +DULO1CAP3 PO; -LORTA5 PO; -MAGN30S PO; -METR-1 PO; -ROCE1INJ3 IM; -ZOFR8TAB4 PO; -[UNRECOGNIZED DRUG - CODE] PO
[2016-09-28 15:13] VITALS: BP 114/69; PULSE 91; RESP 16; TEMP 97.6; O2SAT 96
[2016-09-28] MEDS ORDERED: SODIUM CHLOR 0.9% 1000 ML INJ 100 ML IV ONE (15:32)
[2016-09-28] MEDS ORDERED: SODIUM CHLOR 0.9% 1000 ML INJ 1,000 ML IV ONE ×2 (15:32)
[2016-09-28] MEDS ORDERED: ONDANSETRON HCL 4 MG/2 ML VIAL IV ONE (15:45)
[2016-09-28] MEDS ORDERED: HYDROmorphone HCL PF 1 MG/ML VIAL IV PUSH ONE (15:45)
--- NOTE | 2016-09-28 15:52 | RADRPT ---
EXAM DATE/TIME: 09/28/2016 15:45 [facility] COMPARISON: CHEST SINGLE AP, August 02, 2016, 18:02. INDICATIONS : Fever and shortness of breath. MEDICAL HISTORY : Hypertension. Hepatitis C. Paraplegic SURGICAL HISTORY : None. ENCOUNTER: Initial ACUITY: 2 days PAIN SCORE: 0/10 LOCATION: Bilateral chest FINDINGS: A single view of the chest demonstrates the lungs to be symmetrically aerated without evidence of mas s, infiltrate or effusion. The cardiomediastinal contours are unremarkable. Osseous structures demo nstrate scoliotic changes but are intact. CONCLUSION: No acute cardiopulmonary findings identified. Jean Oliva MD on September 28, 2016 at 15:50 Board Certified Radiologist. This report was verified electronically.
[2016-09-28 16:03] LABS: AUTOMATED NEUTROPHIL # 4.9 TH/MM3 (1.8-7.7); BASOPHIL # 0.1 TH/MM3 (0-0.2); BASOPHIL % 0.7 % (0.0-2.0); EOSINOPHIL # 0.2 TH/MM3 (0-0.4); EOSINOPHIL % 2.7 % (0.0-4.0); HEMATOCRIT 38.7 % (35.0-46.0); HEMO FLAGS DIFF FINAL; LYMPH % 31.4 % (9.0-44.0); LYMPHOCYTE # 2.6 TH/MM3 (1.0-4.8); MEAN CELL VOLUME 81.4 FL (80.0-100.0); MEAN CORPUSCULAR HEMOGLOBIN 26.5 PG (27.0-34.0); MEAN CORPUSCULAR HGB CONC 32.5 % (32.0-36.0); NEUT % 59.2 % (16.0-70.0); PLATELET COUNT 403 TH/MM3 (150-450); RED BLOOD COUNT 4.75 MIL/MM3 (4.00-5.30); RED CELL DISTRIBUTION WIDTH 16.5 % (11.6-17.2); WHITE BLOOD COUNT 8.2 TH/MM3 (4.0-11.0)
[2016-09-28 16:22] LABS: ALKALINE PHOSPHATASE 195 U/L (45-117); TOTAL BILIRUBIN ADULT 0.6 MG/DL (0.2-1.0)
[2016-09-28 16:27] LABS: APTT (PATIENT) 28.7 SEC (24.3-30.1); PROTHROMBIN TIME - PATIENT 11.3 SEC (9.8-11.6)
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
[2016-09-28 16:30] LABS: ALT (GPT) 24 U/L (10-53); ANION GAP 11 MEQ/L (5-15); AST (GOT) 31 U/L (15-37); BICARBONATE 23.1 MEQ/L (21.0-32.0); BLOOD UREA NITROGEN 14 MG/DL (7-18); CHLORIDE 104 MEQ/L (98-107); GLOMERULAR FILTRATION RATE 198 ML/MIN (>89); MAGNESIUM 2.3 MG/DL (1.5-2.5); POTASSIUM 3.8 MEQ/L (3.5-5.1); SODIUM (NA) 138 MEQ/L (136-145)
[2016-09-28 17:15] LABS: BACTERIA, URINE MANY /hpf; BLOOD, URINE MOD (NEG); COMMENT (UR) CULTURE INDICATED; CULTURE IF INDICATED CULTURE INDICATED; GLUCOSE,URINE NEG (NEG); KETONE, URINE 40 mg/dL (NEG); MUCUS URINE MANY /lpf (OCC); SQUAMOUS EPITHELIAL CELL URINE 4 /hpf (0-5); URINE COLOR YELLOW (YELLW/STRAW)
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
[2016-09-28 17:16] LABS: NITRITE,URINE POS (NEG)
[2016-09-28] MEDS ORDERED: CIPROFLOXACIN 400 MG PREMIX 200 ML IV ONE (17:45)
[2016-09-28] MEDS ORDERED: HYDROmorphone HCL 4 MG TAB PO ONE (18:00)
[2016-09-28] MEDS ORDERED: SUMAtriptan SUCCINATE 25 MG TAB PO PRN (18:45)
[2016-09-28] MEDS ORDERED: HYDROmorphone HCL 2 MG TAB PO PRN (18:45)
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
[2016-09-28] MEDS ORDERED: fentaNYL 75 MCG/HR PATCH T-DERMAL SCH (20:00)
[2016-09-28] MEDS ORDERED: LEVOFLOXACIN 500 MG PREMIX INJ 100 ML IV SCH (21:00)
[2016-09-28] MEDS: DULoxetine HCl DR 20 MG CAP PO SCH (21:29)
[2016-09-28] MEDS: ASCORBIC ACID 500 MG TAB PO SCH (21:30)
[2016-09-28 21:43] VITALS: BP 107/63; PULSE 90; RESP 18; TEMP 98.2; O2SAT 96
[2016-09-28] MEDS: HYDROmorphone HCL 4 MG TAB PO PRN (23:10)
[2016-09-28] MEDS: RESP: ALBUTEROL 2.5 MG/IPRATROPIUM 0.5 MG NEB (PRN) NEB (23:22)
[2016-09-29 02:24] VITALS: BP 105/72; PULSE 82; RESP 18; TEMP 98; O2SAT 96
[2016-09-29 02:56] VITALS: O2SAT 98
[2016-09-29] MEDS: HYDROmorphone HCL 4 MG TAB PO PRN ×4 (05:45→23:42)
[2016-09-29 07:06] VITALS: BP 92/55; PULSE 118; RESP 18; TEMP 101.9; O2SAT 95
[2016-09-29] MEDS: RESP: ALBUTEROL 2.5 MG/IPRATROPIUM 0.5 MG NEB (PRN) NEB (08:11)
[2016-09-29] MEDS: ASCORBIC ACID 500 MG TAB PO SCH ×2 (09:09→21:36)
[2016-09-29] MEDS: clonazePAM 0.5 MG TAB PO PRN (09:09)
[2016-09-29] MEDS: DULoxetine HCl DR 60 MG CAP PO SCH (09:09)
[2016-09-29] MEDS: BACLOFEN 10 MG TAB PO SCH ×3 (09:09→17:43)
[2016-09-29] MEDS: MIDODRINE 5 MG TAB PO SCH ×3 (09:09→17:43)
[2016-09-29] MEDS: MULTIVITAMIN TAB PO SCH (09:09)
[2016-09-29] MEDS: LEVOFLOXACIN 500 MG PREMIX INJ 100 ML IV SCH (09:10)
[2016-09-29] MEDS: SODIUM CHLOR 0.9% 1000 ML INJ 1,000 ML IV SCH ×2 (10:31→21:36)
--- NOTE | 2016-09-29 10:35 | HHI.PR ---
Subjective Remarks fever with chills this am no nausea or vomiting poo po states having diarrhea these past 2 days Objective Vitals Vital Signs Date Time Temp Pulse Resp B/P Pulse Ox O2 Delivery O2 Flow Rate FiO2 09/29/16 07:06 101.9 118 18 92/55 95 09/29/16 02:56 98 Nasal Cannula 3.00 09/29/16 02:24 98.0 82 18 105/72 96 09/29/16 00:10 18 09/28/16 23:08 18 09/28/16 21:43 98.2 90 18 107/63 96 09/28/16 15:13 97.6 91 16 114/69 96 Result Diagram: 09/28/16 1532 09/28/16 1532 Imaging Last Impressions Chest X-Ray 09/28/16 1532 Signed Impressions: Service Date/Time: Wednesday, September 28, 2016 15:45 - CONCLUSION: No acute cardiopulmonary findings identified. 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 restart IVF recheck UA now HAD- few rhonchi duonebulization q 6 and q 2 prn Multiple decubitus ulcers sacral with clean base wound care team Lovenox for DVT prophylaxis Continue on home medications CAse management consult to look into home situation Joe Louise MD Sep 29, 2016 10:35
[2016-09-29] MEDS: RESP: ALBUTEROL 2.5 MG/IPRATROPIUM 0.5 MG NEB (SCH) NEB ×2 (10:45→20:33)
--- NOTE | 2016-09-29 10:48 | EKG ---
Date Performed: 09/28/2016 Time Performed: 15:34:30 PTAGE: 31 years EKG: SINUS TACHYCARDIA NONSPECIFIC T-WAVE ABNORMALITY ABNORMAL RHYTHM ECG PREVIOUS TRACING : 05/02/2016 15.45 DOCTOR: Ant Malhotra Interpretating Date/Time 09/29/2016 10:46:36
[2016-09-29 11:02] LABS: BACTERIA, URINE MANY /hpf; BLOOD, URINE SMALL (NEG); GLUCOSE,URINE NEG (NEG); HYALINE CAST, URINE 13 /lpf (RARE); KETONE, URINE 10 mg/dL (NEG); MUCUS URINE MANY /lpf (OCC); SQUAMOUS EPITHELIAL CELL URINE 2 /hpf (0-5); URINE COLOR YELLOW (YELLW/STRAW)
[2016-09-29 11:16] LABS: COMMENT (UR) CATH-CULTURE IND; CULTURE IF INDICATED CATH CULTURE IND; NITRITE,URINE POS (NEG)
[2016-09-29 11:17] VITALS: BP 97/54; PULSE 123; RESP 20; TEMP 101.7; O2SAT 97
[2016-09-29] MEDS ORDERED: SODIUM CHLOR 0.9% 1000 ML INJ 1,000 ML IV ONE (11:30)
[2016-09-29] MEDS: ACETAMINOPHEN 325 MG TAB PO PRN (11:54)
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
[2016-09-29] MEDS ORDERED: CEFEPIME INJ 2,000 MG in SODIUM CHLORIDE 0.9% INJ 100 ML IV SCH (14:00)
[2016-09-29 15:37] VITALS: BP 102/57; PULSE 114; RESP 22; TEMP 99.3; O2SAT 99
[2016-09-29 15:37] LABS: AUTOMATED NEUTROPHIL # 3.7 TH/MM3 (1.8-7.7); BASOPHIL % 0.3 % (0.0-2.0); EOSINOPHIL # 0.1 TH/MM3 (0-0.4); EOSINOPHIL % 1.1 % (0.0-4.0); HEMATOCRIT 30.2 % (35.0-46.0); HEMO FLAGS DIFF FINAL; LYMPH % 31.1 % (9.0-44.0); LYMPHOCYTE # 1.9 TH/MM3 (1.0-4.8); MEAN CELL VOLUME 81.2 FL (80.0-100.0); MEAN CORPUSCULAR HEMOGLOBIN 27.2 PG (27.0-34.0); MEAN CORPUSCULAR HGB CONC 33.5 % (32.0-36.0); MONO % 7.6 % (0.0-8.0); NEUT % 59.9 % (16.0-70.0); PLATELET COUNT 286 TH/MM3 (150-450); RED BLOOD COUNT 3.73 MIL/MM3 (4.00-5.30); RED CELL DISTRIBUTION WIDTH 16.3 % (11.6-17.2); WHITE BLOOD COUNT 6.1 TH/MM3 (4.0-11.0)
[2016-09-29] MEDS: DULoxetine HCl DR 20 MG CAP PO SCH (21:36)
[2016-09-29 23:35] VITALS: BP 110/65; PULSE 84; RESP 20; TEMP 99.3; O2SAT 95
[2016-09-30 03:53] VITALS: BP 98/58; PULSE 105; RESP 20; TEMP 99; O2SAT 95
[2016-09-30] MEDS: CEFEPIME INJ 2,000 MG in SODIUM CHLORIDE 0.9% INJ 100 ML IV SCH ×2 (05:22→18:29)
[2016-09-30] MEDS: SODIUM CHLOR 0.9% 1000 ML INJ 1,000 ML IV SCH ×3 (05:22→18:30)
[2016-09-30 07:07] VITALS: BP 92/54; PULSE 109; RESP 16; TEMP 100.5; O2SAT 96
[2016-09-30] MEDS: RESP: ALBUTEROL 2.5 MG/IPRATROPIUM 0.5 MG NEB (SCH) NEB ×3 (07:24→20:00)
[2016-09-30] MEDS: ASCORBIC ACID 500 MG TAB PO SCH ×2 (09:14→21:21)
[2016-09-30] MEDS: BACLOFEN 10 MG TAB PO SCH ×3 (09:14→18:29)
[2016-09-30] MEDS: DULoxetine HCl DR 60 MG CAP PO SCH (09:14)
[2016-09-30] MEDS: MIDODRINE 5 MG TAB PO SCH ×3 (09:14→18:29)
[2016-09-30] MEDS: ACETAMINOPHEN 325 MG TAB PO PRN (09:14)
[2016-09-30] MEDS: MULTIVITAMIN TAB PO SCH (09:15)
[2016-09-30] MEDS: LEVOFLOXACIN 500 MG PREMIX INJ 100 ML IV SCH (09:15)
[2016-09-30 09:28] VITALS: BP 100/65
[2016-09-30] MEDS: HYDROmorphone HCL 4 MG TAB PO PRN ×3 (09:28→22:15)
[2016-09-30 11:07] VITALS: BP 100/49; PULSE 11; PULSE 111; RESP 20; TEMP 98.6; O2SAT 96
--- NOTE | 2016-09-30 12:25 | HHI.PR ---
Subjective Remarks low grade fever patient washing herself just on phone with her home health care team seen with CM Objective Vitals Vital Signs Date Time Temp Pulse Resp B/P Pulse Ox O2 Delivery O2 Flow Rate FiO2 09/30/16 11:07 98.6 11 20 100/49 96 09/30/16 09:28 100/65 09/30/16 07:07 100.5 109 16 92/54 96 09/30/16 03:53 99.0 105 20 98/58 95 09/29/16 23:35 99.3 84 20 110/65 95 09/29/16 15:37 99.3 114 22 102/57 99 I/O 09/29/16 09/29/16 09/29/16 09/30/16 09/30/16 09/30/16 07:00 15:00 23:00 07:00 15:00 23:00 Intake Total 300 ml Output Total 700 ml Balance 300 ml -700 ml Intake IV Total 300 ml Output Urine Total 700 ml Result Diagram: 09/29/16 1509 09/28/16 1532 Imaging Last Impressions Chest X-Ray 09/28/16 1532 Signed Impressions: Service Date/Time: Wednesday, September 28, 2016 15:45 - CONCLUSION: No acute cardiopulmonary findings identified. Jean Oliva MD Objective Remarks awake and alert, oriented x 3. 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 restart IVF recheck UA now HAD- duonebulization q 6 and q 2 prn Multiple decubitus ulcers sacral with clean base prn cough prep wound care team Lovenox for DVT prophylaxis Continue on home medications CAse management consult to look into home situation Joe Louise MD Sep 30, 2016 12:25
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
[2016-09-30 15:32] VITALS: BP 120/70; PULSE 98; RESP 22; TEMP 96.6; O2SAT 99
[2016-09-30] MEDS: COLLAGENASE OINT 30 GM TUBE TOP SCH (19:30)
[2016-09-30] MEDS: DULoxetine HCl DR 20 MG CAP PO SCH (21:21)
[2016-09-30 21:24] VITALS: BP 109/69; PULSE 117; RESP 18; TEMP 99.7; O2SAT 100
[2016-10-01] VITALS (7 sets, daily range): BP systolic 95–130; BP diastolic 55–75; PULSE 98–113; RESP 18; TEMP 99–103.1; O2SAT 95–100
[2016-10-01] MEDS: ACETAMINOPHEN 325 MG TAB PO PRN (01:52)
[2016-10-01] MEDS: SODIUM CHLOR 0.9% 1000 ML INJ 1,000 ML IV SCH ×3 (04:00→18:32)
[2016-10-01] MEDS: HYDROmorphone HCL 4 MG TAB PO PRN ×4 (04:01→23:25)
[2016-10-01] MEDS: CEFEPIME INJ 2,000 MG in SODIUM CHLORIDE 0.9% INJ 100 ML IV SCH (05:09)
[2016-10-01] MEDS: RESP: ALBUTEROL 2.5 MG/IPRATROPIUM 0.5 MG NEB (SCH) NEB ×3 (08:08→20:25)
[2016-10-01] MEDS: ASCORBIC ACID 500 MG TAB PO SCH ×2 (08:37→21:51)
[2016-10-01] MEDS: MULTIVITAMIN TAB PO SCH (08:37)
[2016-10-01] MEDS: MIDODRINE 5 MG TAB PO SCH ×3 (08:37→17:28)
[2016-10-01] MEDS: DULoxetine HCl DR 60 MG CAP PO SCH (08:37)
[2016-10-01] MEDS: COLLAGENASE OINT 30 GM TUBE TOP SCH (08:38)
[2016-10-01] MEDS: BACLOFEN 10 MG TAB PO SCH ×3 (08:38→17:28)
[2016-10-01] MEDS: LEVOFLOXACIN 500 MG PREMIX INJ 100 ML IV SCH (08:38)
[2016-10-01] MEDS ORDERED: DIATRIZOATE MEGLUM/DIATRIZOATE SOD 9 ML CUP PO ONE (09:13)
[2016-10-01] MEDS ORDERED: MISCELLANEOUS PHARMACY INFORMATION XX PRN (09:45)
[2016-10-01] MEDS ORDERED: ASP: Documented ESBL, MDR A baumannii or P. aeruginosa XX PRN ×2 (09:45)
[2016-10-01] MEDS: clonazePAM 0.5 MG TAB PO PRN (11:43)
[2016-10-01] MEDS: ERTAPENEM INJ 1,000 MG in SODIUM CHLORIDE 0.9% INJ 100 ML IV SCH (11:43)
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
[2016-10-01] MEDS ORDERED: IOHEXOL 350 MG/ML 10 ML VIAL (for RAD DIAG) IV ONE (16:19)
--- NOTE | 2016-10-01 16:56 | RADRPT ---
EXAM DATE/TIME: 10/01/2016 15:55 [facility] COMPARISON: CT PULMONARY ANGIOGRAM, May 02, 2016, 18:51. CT ABDOMEN & PELVIS W CONTRAST, April 20, 2016, 1 3:00. INDICATIONS : Abdomen pain, sepsis. IV CONTRAST: 96 cc Omnipaque 350 (iohexol) IV ORAL CONTRAST: Prescribed oral contrast ingested. RADIATION DOSE: 9.96 CTDIvol (mGy) MEDICAL HISTORY : Hepatitis C. Cervial cancer, paraplegic SURGICAL HISTORY : Colostomy. G tube ENCOUNTER: Initial ACUITY: 1 day PAIN SCALE: 5/10 LOCATION: abdomen TECHNIQUE: Volumetric scanning of the abdomen and pelvis was performed. Using automated exposure control and ad justment of the mA and/or kV according to patient size, radiation dose was kept as low as reasonably achievable to obtain optimal diagnostic quality images. FINDINGS: LOWER LUNGS: With mild atelectasis in the posterior lung bases. LIVER: Homogeneous density without lesion. There is no dilation of the biliary tree. No calcified gallston es. SPLEEN: Normal size without lesion. PANCREAS: Within normal limits. KIDNEYS: Normal in size and shape. There is no mass, stone or hydronephrosis. ADRENAL GLANDS: Within normal limits. VASCULAR: IVC filter. No aortic aneurysm or major vessel occlusion BOWEL/MESENTERY: Likely duodenal diverticulum versus mild bulbous dilatation of the duodenal bulb. A sigmoid colostomy in the left lower quadrant with associated Belle's pouch. No evidence of obstruction. ABDOMINAL WALL: See above RETROPERITONEUM: There is no lymphadenopathy. BLADDER: Chronic indwelling Cortez catheter. Calcific debris or bladder wall calcifications present. REPRODUCTIVE: Within normal limits. INGUINAL: There is no lymphadenopathy or hernia. MUSCULOSKELETAL: Interval resorption or destruction of the right femoral head with permeative bony changes in the acet abulum and ipsilateral right ischial tuberosity and inferior pubic ramus. Moderate indurative changes around the right hip and decubitus ulceration in the right buttock with small fluid collections in t he inferior right gluteal region. Edema extending into the medial thigh. Stable destructive/resorptiv e changes versus dysplasia/hypoplasia involving the sacrococcygeal elements. CONCLUSION: No definite acute intra-abdominal process. Interval presumed infectious complication involving the right hip with small adjacent fluid collectio ns in the inferior right buttock could be abscesses. See above discussion. Raji Do MD on October 01, 2016 at 16:38 Board Certified Radiologist. This report was verified electronically.
--- NOTE | 2016-10-01 17:11 | HHI.PR ---
Subjective Remarks appears comfortable smith bag- draining clear urine t max 103 no nausea or vomiting, good po Objective Vitals Vital Signs Date Time Temp Pulse Resp B/P Pulse Ox O2 Delivery O2 Flow Rate FiO2 10/01/16 15:44 105 130/75 10/01/16 08:09 98 Nasal Cannula 4.00 10/01/16 07:57 99.0 98 18 105/56 100 10/01/16 05:04 99.8 106 18 10/01/16 01:49 103.1 113 18 110/55 97 09/30/16 21:24 99.7 117 18 109/69 100 I/O 09/30/16 09/30/16 09/30/16 10/01/16 10/01/16 10/01/16 07:00 15:00 23:00 07:00 15:00 23:00 Intake Total 240 ml Output Total 2200 ml Balance -2200 ml 240 ml Intake Oral 240 ml Output Urine Total 2200 ml Result Diagram: 09/29/16 1509 09/28/16 1532 Imaging Last Impressions Abdomen/Pelvis CT 10/01/16 0000 Signed Impressions: Service Date/Time: Saturday, October 01, 2016 15:55 - CONCLUSION: No definite acute intra-abdominal process. Interval presumed infectious complication involving the right hip with small adjacent fluid collections in the inferior right buttock could be abscesses. See above discussion. Raji Do MD Chest X-Ray 09/28/16 1532 Signed Impressions: Service Date/Time: Wednesday, September 28, 2016 15:45 - CONCLUSION: No acute cardiopulmonary findings identified. Jean Oliva MD Objective Remarks awake and alert, oriented x 3. T max 100.8, NAD anicteric lungs - no rales or wheezes regular rhythm, abdomen soft, good bowel sounds, colostomy bag with stools extremities -bilateral thigh with dependent edema, good peripheral pulses back- with dressings in place Urinary Catheter: Yes Smith insert reason: Prolonged Immobilization Date of Insertion: Sep 28, 2016 A/P Assessment and Plan 31-year-old female paraplegic doing intermittent self catheterization q 6 presenting with Sepsis due to Urinary tract infection- ESBL patient does intermittent self catheterization at home Smith catheter placed 09/28 on Invanz IV ff c and S Dr. Gabriel salgado HAD- lungs clear. continue nebulization Multiple decubitus ulcers sacral with clean base prn cough prep wound care team ff Lovenox for DVT prophylaxis Continue on home medications CAse management consult to look into home situation Joe Louise MD Oct 01, 2016 17:11
[2016-10-01] MEDS: REMOVE OLD DURAGESIC (FENTANYL) PATCH TD SCH (20:00)
[2016-10-01] MEDS: fentaNYL 75 MCG/HR PATCH T-DERMAL SCH (21:50)
[2016-10-01] MEDS: DULoxetine HCl DR 20 MG CAP PO SCH (21:51)
[2016-10-02] MEDS: SODIUM CHLOR 0.9% 1000 ML INJ 1,000 ML IV SCH ×3 (02:52→21:18)
[2016-10-02] MEDS: HYDROmorphone HCL 4 MG TAB PO PRN ×3 (05:19→18:36)
[2016-10-02] MEDS: clonazePAM 0.5 MG TAB PO PRN (06:26)
[2016-10-02] MEDS: RESP: ALBUTEROL 2.5 MG/IPRATROPIUM 0.5 MG NEB (SCH) NEB ×3 (07:55→19:14)
--- NOTE | 2016-10-02 08:43 | HHI.PR ---
Subjective Remarks Follow up for ESBL+ UTI, sacral decubitus ulcers. The patient reports continue subjective fevers last night, Tmax 100.0. She complains of pain in the neck. Also experiencing some mild wheezing. Denies any other medical complaints. Objective Vitals Vital Signs Date Time Temp Pulse Resp B/P Pulse Ox O2 Delivery O2 Flow Rate FiO2 10/02/16 07:55 21 10/01/16 23:47 99.3 99 18 100/56 95 10/01/16 20:27 95 10/01/16 15:44 100.0 105 18 130/75 95 I/O 10/01/16 10/01/16 10/01/16 10/02/16 10/02/16 10/02/16 07:00 15:00 23:00 07:00 15:00 23:00 Intake Total 240 ml Balance 240 ml Intake Oral 240 ml Result Diagram: 09/29/16 1509 09/28/16 1532 Imaging Last Impressions Abdomen/Pelvis CT 10/01/16 0000 Signed Impressions: Service Date/Time: Saturday, October 01, 2016 15:55 - CONCLUSION: No definite acute intra-abdominal process. Interval presumed infectious complication involving the right hip with small adjacent fluid collections in the inferior right buttock could be abscesses. See above discussion. Raji Do MD Chest X-Ray 09/28/16 1532 Signed Impressions: Service Date/Time: Wednesday, September 28, 2016 15:45 - CONCLUSION: No acute cardiopulmonary findings identified. Jean Oliva MD Objective Remarks GENERAL: Well-nourished, well-developed middle aged female patient in [facility]. SKIN: Warm and dry. No rash. HEENT: Normocephalic. Atraumatic. Pupils equal and round. No scleral icterus. No injection or drainage. Mucous membranes pink and moist. NECK: Supple. Trachea midline. CARDIOVASCULAR: Regular rate and rhythm. S1, S2 noted. No murmur appreciated. RESPIRATORY: No accessory muscle use. Clear to auscultation. Breath sounds equal bilaterally. GASTROINTESTINAL: Abdomen soft, non-tender, nondistended. Normoactive bowel sounds x4. Colostomy bag. MUSCULOSKELETAL: No obvious deformities. Extremities without clubbing, cyanosis , or edema. NEUROLOGICAL: Awake and alert. Paraplegia. Normal speech. PSYCHIATRIC: Appropriate mood and affect; insight and judgment normal. Medications and IVs Current Medications Medications (Trade) Dose Ordered Sig/Kinjal Route Start Time Stop Time Status Last Admin (Vitamin C) 500 mg BID PO 09/28/16 21:00 10/02/16 09:23 (Lioresal) 5 mg TID PO 09/29/16 09:00 10/02/16 11:54 (KlonoPIN) 0.5 mg DAILY PRN PO 09/28/16 18:45 10/02/16 06:26 (Cymbalta Dr) 60 mg DAILY PO 09/29/16 09:00 10/02/16 09:23 (Cymbalta Dr) 20 mg HS PO 09/28/16 21:00 10/01/16 21:51 (Proamatine) 5 mg TID PO 09/29/16 09:00 10/02/16 11:54 (Theragran) 1 tab DAILY PO 09/29/16 09:00 10/02/16 09:00 (Imitrex) 25 mg DAILY PRN PO 09/28/16 18:45 Miscellaneous Information 1 Q72H TD 10/01/16 20:00 10/01/16 20:00 Hydromorphone HCl 8 mg 8 mg Q6H PRN PO 09/28/16 19:06 10/02/16 11:52 (NS 1000 ml Inj) 1,000 ml @ 125 mls/hr Q8H IV 09/29/16 10:30 10/02/16 11:42 (Tylenol) 650 mg Q4H PRN PO 09/29/16 11:30 10/01/16 01:52 (Duragesic 75 Mcg Patch.72 Hr) 1 patch Q72H T-DERMAL 10/01/16 20:00 10/01/16 21:50 Collagenase 1 applic 1 applic DAILY TOP 09/30/16 17:30 10/02/16 09:25 (INVanz INJ/NS Inj) 100 ml @ 200 mls/hr Q24H IV 10/01/16 11:00 10/02/16 11:42 Urinary Catheter: Yes Assessment to: Continue Cortez insert reason: Prolonged Immobilization Date of Insertion: Sep 28, 2016 A/P Assessment and Plan 31-year-old female paraplegic doing intermittent self catheterization q 6 presenting with Sepsis due to Urinary tract infection- ESBL patient does intermittent self catheterization at home Cortez catheter placed 09/28 Continue on Invanz IV Urine C&S with Klebsiella Pneumoniae and E. Coli ESBL positive Infectious disease consulted, Dr. Rios following Multiple decubitus ulcers sacral with clean base prn cough prep wound care team ff CT abd/pelvis ordered by ID, showed no acute intra-abdominal process; interval presumed infectious complication right hip with small adjacent fluid collections inferior R buttock, could be abscesses Await infectious disease recommendations Lovenox for DVT prophylaxis Other chronic medical conditions stable, Continue on home medications Case management consult to look into home situation Written by Marilee Ryder, acting as scribe for Dr. Wang on 10/02/16 at 08:43. All or portions of this note were transcribed by scribCrystal HERNANDEZ. I, Dr. Barbara Wang personally performed the history, physical exam, and medical decision making; and confirmed the accuracy of the information in the transcribed note. Authenticated by Dr. Barbara Wang on 10/02/16 at 08:43. Marilee Ryder PA-C Oct 02, 2016 08:43 Barbara Wang MD Oct 02, 2016 13:02
[2016-10-02 08:55] VITALS: BP 102/60; PULSE 89; RESP 18; TEMP 96.7; O2SAT 95
[2016-10-02] MEDS: MULTIVITAMIN TAB PO SCH (09:00)
[2016-10-02] MEDS: ASCORBIC ACID 500 MG TAB PO SCH ×2 (09:23→21:18)
[2016-10-02] MEDS: BACLOFEN 10 MG TAB PO SCH ×3 (09:23→18:35)
[2016-10-02] MEDS: MIDODRINE 5 MG TAB PO SCH ×3 (09:23→18:35)
[2016-10-02] MEDS: DULoxetine HCl DR 60 MG CAP PO SCH (09:23)
[2016-10-02] MEDS: COLLAGENASE OINT 30 GM TUBE TOP SCH (09:25)
[2016-10-02] MEDS: ERTAPENEM INJ 1,000 MG in SODIUM CHLORIDE 0.9% INJ 100 ML IV SCH (11:42)
[2016-10-02 16:19] VITALS: BP 100/43; PULSE 98; RESP 18; O2SAT 95
[2016-10-02 20:13] VITALS: BP 102/66; PULSE 75; RESP 18; TEMP 97.7; O2SAT 97
[2016-10-02] MEDS: DULoxetine HCl DR 20 MG CAP PO SCH (21:18)
[2016-10-03 00:28] VITALS: BP 103/52; PULSE 86; RESP 18; TEMP 97.8; O2SAT 96
[2016-10-03] MEDS: HYDROmorphone HCL 4 MG TAB PO PRN ×4 (02:01→21:08)
[2016-10-03] MEDS: SODIUM CHLOR 0.9% 1000 ML INJ 1,000 ML IV SCH ×3 (02:52→18:52)
[2016-10-03] MEDS: RESP: ALBUTEROL 2.5 MG/IPRATROPIUM 0.5 MG NEB (PRN) NEB ×2 (04:17→13:09)
[2016-10-03 04:19] VITALS: O2SAT 96
--- NOTE | 2016-10-03 08:20 | HHI.PR ---
Subjective Remarks Follow up for ESBL+ UTI, sacral decubitus ulcers. The patient reports having a rough night last night, didn't sleep well. She states she had some wheezing last night, relieved by duoneb. Denies any fevers/chills overnight or today. Denies any pain today. Denies any chest pain or shortness of breath. She has no other medical complaints at this time. Objective Vitals Vital Signs Date Time Temp Pulse Resp B/P Pulse Ox O2 Delivery O2 Flow Rate FiO2 10/03/16 04:19 96 21 10/03/16 00:28 97.8 86 18 103/52 96 10/02/16 20:13 97.7 75 18 102/66 97 10/02/16 16:19 98 18 100/43 95 10/02/16 12:52 18 10/02/16 08:55 96.7 89 18 102/60 95 Result Diagram: 09/29/16 1509 Imaging Last Impressions Abdomen/Pelvis CT 10/01/16 0000 Signed Impressions: Service Date/Time: Saturday, October 01, 2016 15:55 - CONCLUSION: No definite acute intra-abdominal process. Interval presumed infectious complication involving the right hip with small adjacent fluid collections in the inferior right buttock could be abscesses. See above discussion. Raji Do MD Chest X-Ray 09/28/16 1532 Signed Impressions: Service Date/Time: Wednesday, September 28, 2016 15:45 - CONCLUSION: No acute cardiopulmonary findings identified. Jean Oliva MD Objective Remarks GENERAL: Well-nourished, well-developed middle aged female patient in [facility]. SKIN: Warm and dry. No rash. HEENT: Normocephalic. Atraumatic. Pupils equal and round. No scleral icterus. No injection or drainage. Mucous membranes pink and moist. NECK: Supple. Trachea midline. CARDIOVASCULAR: Regular rate and rhythm. S1, S2 noted. No murmur appreciated. RESPIRATORY: No accessory muscle use. Clear to auscultation. Breath sounds equal bilaterally. GASTROINTESTINAL: Abdomen soft, non-tender, nondistended. Normoactive bowel sounds x4. Colostomy bag. MUSCULOSKELETAL: No obvious deformities. Extremities without clubbing, cyanosis , or edema. NEUROLOGICAL: Awake and alert. Paraplegia. Normal speech. PSYCHIATRIC: Appropriate mood and affect; insight and judgment normal. Medications and IVs Current Medications Medications (Trade) Dose Ordered Sig/Kinjal Route Start Time Stop Time Status Last Admin (Vitamin C) 500 mg BID PO 09/28/16 21:00 10/02/16 21:18 (Lioresal) 5 mg TID PO 09/29/16 09:00 10/02/16 18:35 (KlonoPIN) 0.5 mg DAILY PRN PO 09/28/16 18:45 10/02/16 06:26 (Cymbalta Dr) 60 mg DAILY PO 09/29/16 09:00 10/02/16 09:23 (Cymbalta Dr) 20 mg HS PO 09/28/16 21:00 10/02/16 21:18 (Proamatine) 5 mg TID PO 09/29/16 09:00 10/02/16 18:35 (Theragran) 1 tab DAILY PO 09/29/16 09:00 10/02/16 09:00 (Imitrex) 25 mg DAILY PRN PO 09/28/16 18:45 Miscellaneous Information 1 Q72H TD 10/01/16 20:00 10/01/16 20:00 Hydromorphone HCl 8 mg 8 mg Q6H PRN PO 09/28/16 19:06 10/03/16 07:47 (NS 1000 ml Inj) 1,000 ml @ 125 mls/hr Q8H IV 09/29/16 10:30 10/03/16 02:52 (Tylenol) 650 mg Q4H PRN PO 09/29/16 11:30 10/01/16 01:52 (Duragesic 75 Mcg Patch.72 Hr) 1 patch Q72H T-DERMAL 10/01/16 20:00 10/01/16 21:50 Collagenase 1 applic 1 applic DAILY TOP 09/30/16 17:30 10/02/16 09:25 (INVanz INJ/NS Inj) 100 ml @ 200 mls/hr Q24H IV 10/01/16 11:00 10/02/16 11:42 Urinary Catheter: Yes Assessment to: Continue Cortez insert reason: Stage III/IV Press Ulcer Date of Insertion: Sep 28, 2016 A/P Assessment and Plan 31-year-old female paraplegic doing intermittent self catheterization q 6 presenting with Sepsis due to Urinary tract infection- ESBL patient does intermittent self catheterization at home Cortez catheter placed 09/28 Urine C&S with Klebsiella Pneumoniae and E. Coli ESBL positive Infectious disease consulted, Dr. Rios following Continue on Invanz IV Multiple decubitus ulcers sacral with clean base wound care team gave recommendations, orders placed. CT abd/pelvis ordered by ID, showed no acute intra-abdominal process; interval presumed infectious complication right hip with small adjacent fluid collections inferior R buttock, could be abscesses Await further infectious disease recommendations Lovenox for DVT prophylaxis Other chronic medical conditions stable, Continue on home medications Case management consult to look into home situation Written by Marilee Ryder, acting as scribe for Dr. Wang on 10/03/16 at 09:30 All or portions of this note were transcribed by [email or web address] HERNANDEZ. I, Dr. Barbara Wang personally performed the history, physical exam, and medical decision making; and confirmed the accuracy of the information in the transcribed note. Authenticated by Dr. Barbara Wang on 10/03/16 at 09:30 Marilee Ryder PA-C Oct 03, 2016 08:20 Barbara Wang MD Oct 03, 2016 14:43
[2016-10-03 09:47] VITALS: O2SAT 94
[2016-10-03] MEDS: RESP: ALBUTEROL 2.5 MG/IPRATROPIUM 0.5 MG NEB (SCH) NEB (09:47)
[2016-10-03] MEDS: BACLOFEN 10 MG TAB PO SCH ×3 (10:14→18:11)
[2016-10-03] MEDS: DULoxetine HCl DR 60 MG CAP PO SCH (10:15)
[2016-10-03] MEDS: ASCORBIC ACID 500 MG TAB PO SCH ×2 (10:15→21:07)
[2016-10-03] MEDS: MIDODRINE 5 MG TAB PO SCH ×3 (10:15→18:11)
[2016-10-03] MEDS: MULTIVITAMIN TAB PO SCH (10:16)
[2016-10-03] MEDS: clonazePAM 0.5 MG TAB PO PRN (10:22)
[2016-10-03 12:02] VITALS: BP 130/69; PULSE 89; RESP 18; O2SAT 95
[2016-10-03] MEDS: ERTAPENEM INJ 1,000 MG in SODIUM CHLORIDE 0.9% INJ 100 ML IV SCH (13:30)
[2016-10-03 17:28] VITALS: BP 122/72; PULSE 95; RESP 18; TEMP 97.9; O2SAT 95
[2016-10-03] MEDS: COLLAGENASE OINT 30 GM TUBE TOP SCH (18:30)
[2016-10-03] MEDS: DULoxetine HCl DR 20 MG CAP PO SCH (21:07)
[2016-10-04] VITALS (7 sets, daily range): BP systolic 95–142; BP diastolic 51–96; PULSE 78–100; RESP 16–22; TEMP 97.7–98.8; O2SAT 94–100
[2016-10-04] MEDS: SODIUM CHLOR 0.9% 1000 ML INJ 1,000 ML IV SCH ×3 (02:52→18:31)
[2016-10-04] MEDS: HYDROmorphone HCL 4 MG TAB PO PRN ×4 (04:14→22:37)
--- NOTE | 2016-10-04 07:59 | HHI.PR ---
Subjective Remarks Follow up for ESBL +UTI, sacral decubitus ulcers. No fevers overnight. Patient denies any worsening shortness of breath. Denies abdominal pain/nausea/ vomiting. She is tolerating oral intake. She has no other medical complaints at this time. Objective Vitals Vital Signs Date Time Temp Pulse Resp B/P Pulse Ox O2 Delivery O2 Flow Rate FiO2 10/04/16 04:46 98.4 78 18 113/61 97 10/04/16 00:29 98.8 85 16 118/65 94 10/03/16 17:28 97.9 95 18 122/72 95 10/03/16 12:02 89 18 130/69 95 10/03/16 09:47 94 21 10/03/16 09:00 18 Imaging Last Impressions Abdomen/Pelvis CT 10/01/16 0000 Signed Impressions: Service Date/Time: Saturday, October 01, 2016 15:55 - CONCLUSION: No definite acute intra-abdominal process. Interval presumed infectious complication involving the right hip with small adjacent fluid collections in the inferior right buttock could be abscesses. See above discussion. Raji Do MD Chest X-Ray 09/28/16 1532 Signed Impressions: Service Date/Time: Wednesday, September 28, 2016 15:45 - CONCLUSION: No acute cardiopulmonary findings identified. Jean Oliva MD Objective Remarks GENERAL: Well-nourished, well-developed middle aged female patient in [facility]. SKIN: Warm and dry. No rash. HEENT: Normocephalic. Atraumatic. Pupils equal and round. No scleral icterus. No injection or drainage. Mucous membranes pink and moist. NECK: Supple. Trachea midline. CARDIOVASCULAR: Regular rate and rhythm. S1, S2 noted. No murmur appreciated. RESPIRATORY: No accessory muscle use. Clear to auscultation. Breath sounds equal bilaterally. GASTROINTESTINAL: Abdomen soft, non-tender, nondistended. Normoactive bowel sounds x4. Colostomy bag. MUSCULOSKELETAL: No obvious deformities. Extremities without clubbing, cyanosis , or edema. NEUROLOGICAL: Awake and alert. Paraplegia. Normal speech. PSYCHIATRIC: Appropriate mood and affect; insight and judgment normal. Medications and IVs Current Medications Medications (Trade) Dose Ordered Sig/Kinjal Route Start Time Stop Time Status Last Admin (Vitamin C) 500 mg BID PO 09/28/16 21:00 10/03/16 21:07 (Lioresal) 5 mg TID PO 09/29/16 09:00 10/03/16 18:11 (KlonoPIN) 0.5 mg DAILY PRN PO 09/28/16 18:45 10/03/16 10:22 (Cymbalta Dr) 60 mg DAILY PO 09/29/16 09:00 10/03/16 10:15 (Cymbalta Dr) 20 mg HS PO 09/28/16 21:00 10/03/16 21:07 (Proamatine) 5 mg TID PO 09/29/16 09:00 10/03/16 18:11 (Theragran) 1 tab DAILY PO 09/29/16 09:00 10/03/16 10:16 (Imitrex) 25 mg DAILY PRN PO 09/28/16 18:45 Miscellaneous Information 1 Q72H TD 10/01/16 20:00 10/01/16 20:00 Hydromorphone HCl 8 mg 8 mg Q6H PRN PO 09/28/16 19:06 10/04/16 04:14 (NS 1000 ml Inj) 1,000 ml @ 125 mls/hr Q8H IV 09/29/16 10:30 10/04/16 02:52 (Tylenol) 650 mg Q4H PRN PO 09/29/16 11:30 10/01/16 01:52 (Duragesic 75 Mcg Patch.72 Hr) 1 patch Q72H T-DERMAL 10/01/16 20:00 10/01/16 21:50 Collagenase 1 applic 1 applic DAILY TOP 09/30/16 17:30 10/03/16 18:30 (INVanz INJ/NS Inj) 100 ml @ 200 mls/hr Q24H IV 10/01/16 11:00 10/03/16 13:30 Urinary Catheter: Yes Assessment to: Continue Cortez insert reason: Prolonged Immobilization Date of Insertion: Sep 28, 2016 A/P Assessment and Plan 31-year-old female paraplegic doing intermittent self catheterization q 6 presenting with Sepsis due to Urinary tract infection- ESBL patient does intermittent self catheterization at home Cortez catheter placed 09/28 Urine C&S with Klebsiella Pneumoniae and E. Coli ESBL positive Infectious disease consulted, Dr. Rios following Continue on Invanz IV (plan for 14 days) Repeat CBC/BMP tomorrow Multiple decubitus ulcers sacral with clean base wound care nurse gave recommendations, orders placed. CT abd/pelvis ordered by ID, showed no acute intra-abdominal process; interval presumed infectious complication right hip with small adjacent fluid collections inferior R buttock, could be abscesses ID recommending Ortho eval regarding CT findings Chronic Pain Continue patient's Dilaudid 8mg po q6h prn and Fentanyl patch 75mcg q72h Lovenox for DVT prophylaxis Other chronic medical conditions stable, Continue on home medications Case management consult to look into home situation Written by Marilee Ryder, acting as scribe for Dr. Wang on 10/04/16 at 11:35 All or portions of this note were transcribed by [email or web address] HERNANDEZ. I, Dr. Barbara Wang personally performed the history, physical exam, and medical decision making; and confirmed the accuracy of the information in the transcribed note. Authenticated by Dr. Barbara Wang on 10/04/16 at 11:35 Discharge Planning Plan to return home with [facility] upon discharge if able to arrange IV antibiotic infusion. Marilee Ryder PA-C Oct 04, 2016 07:59 Barbara Wang MD Oct 04, 2016 14:51
[2016-10-04] MEDS: MULTIVITAMIN TAB PO SCH (08:23)
[2016-10-04] MEDS: BACLOFEN 10 MG TAB PO SCH ×3 (08:24→18:26)
[2016-10-04] MEDS: DULoxetine HCl DR 60 MG CAP PO SCH (08:24)
[2016-10-04] MEDS: ASCORBIC ACID 500 MG TAB PO SCH ×2 (08:24→22:37)
[2016-10-04] MEDS: MIDODRINE 5 MG TAB PO SCH ×3 (08:25→18:26)
[2016-10-04] MEDS: COLLAGENASE OINT 30 GM TUBE TOP SCH (12:53)
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
[2016-10-04 14:17] LABS: BACTERIA, URINE OCC /hpf; BLOOD, URINE TRACE (NEG); CALCIUM OXALATE CRYSTALS,URINE RARE /hpf; GLUCOSE,URINE NEG (NEG); KETONE, URINE NEG (NEG); MUCUS URINE FEW /lpf (OCC); NITRITE,URINE NEG (NEG); PH, URINE 6.5 (5.0-8.5); SQUAMOUS EPITHELIAL CELL URINE <1 /hpf (0-5); URINE COLOR YELLOW (YELLW/STRAW)
[2016-10-04 14:21] LABS: COMMENT (UR) CATH-CULTURE IND; CULTURE IF INDICATED CATH CULTURE IND
[2016-10-04] MEDS: ERTAPENEM INJ 1,000 MG in SODIUM CHLORIDE 0.9% INJ 100 ML IV SCH (16:08)
[2016-10-04] MEDS: REMOVE OLD DURAGESIC (FENTANYL) PATCH TD SCH (20:00)
[2016-10-04] MEDS: DULoxetine HCl DR 20 MG CAP PO SCH (22:34)
[2016-10-04] MEDS: fentaNYL 75 MCG/HR PATCH T-DERMAL SCH (22:36)
[2016-10-04] MEDS: RESP: ALBUTEROL 2.5 MG/IPRATROPIUM 0.5 MG NEB (PRN) NEB (23:56)
[2016-10-05] VITALS (8 sets, daily range): BP systolic 91–132; BP diastolic 53–93; PULSE 92–104; RESP 18–21; TEMP 96.9–99; O2SAT 97–100
[2016-10-05] MEDS: SODIUM CHLOR 0.9% 1000 ML INJ 1,000 ML IV SCH ×3 (02:56→18:52)
[2016-10-05] MEDS: HYDROmorphone HCL 4 MG TAB PO PRN ×4 (04:56→23:09)
--- NOTE | 2016-10-05 07:07 | PD.ORT.PN ---
Subjective Subjective Remarks s/p right hip resection with Abx bead placement in july s/p tunneling decubitus ulcers right side doing well. patient states hip does not bother her. reports that she was admitted due to other health issues. Objective Vitals Vital Signs Date Time Temp Pulse Resp B/P Pulse Ox O2 Delivery O2 Flow Rate FiO2 10/05/16 06:05 18 10/05/16 04:00 97.7 92 20 126/71 99 10/05/16 00:00 98.5 99 20 91/53 99 10/04/16 23:59 98 Nasal Cannula 4.00 10/04/16 23:58 18 10/04/16 20:00 98.3 88 20 108/70 100 10/04/16 18:17 98.8 92 20 95/51 99 10/04/16 13:52 98.4 100 18 103/65 95 10/04/16 08:20 97.7 86 22 142/96 98 I/O 10/04/16 10/04/16 10/04/16 10/05/16 10/05/16 10/05/16 07:00 15:00 23:00 07:00 15:00 23:00 Intake Total 240 ml 990 ml Output Total 1200 ml Balance -960 ml 990 ml Intake Oral 240 ml IV Total 990 ml Output Urine Total 200 ml Stool Total 1000 ml # Bowel Movements 0 Objective Remarks RLE: decubitus ulcer on right side approx 5x5cm. tunneling and wound packed. no active drainage. mild erythema. no purulence. Assessment & Plan Assessment and Plan 1) Right Hip resection with tunneling decubitus ulcers -no treatment needed from Ortho standpoint at this time -maintain current dressing change regimen -will defer management of ulcers to Plastics. Timur Miller Oct 05, 2016 07:06
[2016-10-05] MEDS: MIDODRINE 5 MG TAB PO SCH ×3 (09:26→17:13)
[2016-10-05] MEDS: COLLAGENASE OINT 30 GM TUBE TOP SCH (09:26)
[2016-10-05] MEDS: BACLOFEN 10 MG TAB PO SCH ×3 (09:27→17:13)
[2016-10-05] MEDS: MULTIVITAMIN TAB PO SCH (09:27)
[2016-10-05] MEDS: DULoxetine HCl DR 60 MG CAP PO SCH (09:27)
[2016-10-05] MEDS: ASCORBIC ACID 500 MG TAB PO SCH ×2 (09:27→21:00)
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
[2016-10-05] MEDS: ERTAPENEM INJ 1,000 MG in SODIUM CHLORIDE 0.9% INJ 100 ML IV SCH (11:12)
--- NOTE | 2016-10-05 11:12 | HHI.PR ---
Subjective Remarks Patient in bed. Denies chest pain. She feesl her chest is more congested. Coughing but can't cough forcefully. No fevers or chills. Will add mucomyst to duonebs. No n/v/d/c. Objective Vitals Vital Signs Date Time Temp Pulse Resp B/P Pulse Ox O2 Delivery O2 Flow Rate FiO2 10/05/16 09:31 97 Nasal Cannula 3.00 10/05/16 08:00 96.9 92 18 127/78 100 10/05/16 06:05 18 10/05/16 04:00 97.7 92 20 126/71 99 10/05/16 00:00 98.5 99 20 91/53 99 10/04/16 23:59 98 Nasal Cannula 4.00 10/04/16 23:58 18 10/04/16 20:00 98.3 88 20 108/70 100 10/04/16 18:17 98.8 92 20 95/51 99 10/04/16 13:52 98.4 100 18 103/65 95 I/O 10/04/16 10/04/16 10/04/16 10/05/16 10/05/16 10/05/16 07:00 15:00 23:00 07:00 15:00 23:00 Intake Total 240 ml 990 ml Output Total 1200 ml Balance -960 ml 990 ml Intake Oral 240 ml IV Total 990 ml Output Urine Total 200 ml Stool Total 1000 ml # Bowel Movements 0 Imaging Last Impressions Abdomen/Pelvis CT 10/01/16 0000 Signed Impressions: Service Date/Time: Saturday, October 01, 2016 15:55 - CONCLUSION: No definite acute intra-abdominal process. Interval presumed infectious complication involving the right hip with small adjacent fluid collections in the inferior right buttock could be abscesses. See above discussion. Raji Do MD Chest X-Ray 09/28/16 1532 Signed Impressions: Service Date/Time: Wednesday, September 28, 2016 15:45 - CONCLUSION: No acute cardiopulmonary findings identified. Jean Oliva MD Objective Remarks GENERAL: Well-nourished, well-developed middle aged female patient in [facility]. SKIN: Warm and dry. No rash. HEENT: Normocephalic. Atraumatic. Pupils equal and round. No scleral icterus. No injection or drainage. Mucous membranes pink and moist. NECK: Supple. Trachea midline. CARDIOVASCULAR: Regular rate and rhythm. S1, S2 noted. No murmur appreciated. RESPIRATORY: No accessory muscle use. Clear to auscultation. Breath sounds equal bilaterally. GASTROINTESTINAL: Abdomen soft, non-tender, nondistended. Normoactive bowel sounds x4. Colostomy bag. MUSCULOSKELETAL: No obvious deformities. Extremities without clubbing, cyanosis , or edema. NEUROLOGICAL: Awake and alert. Paraplegia. Normal speech. PSYCHIATRIC: Appropriate mood and affect; insight and judgment normal. Date of Insertion: Sep 28, 2016 A/P Assessment and Plan 31-year-old female paraplegic doing intermittent self catheterization q 6 presenting with Sepsis due to Urinary tract infection- ESBL patient does intermittent self catheterization at home Cortez catheter placed 09/28 Urine C&S with Klebsiella Pneumoniae and E. Coli ESBL positive Infectious disease consulted, Dr. Rios following Continue on Invanz IV (plan for 14 days) Repeat CBC/BMP tomorrow Cough. Continue duonebs, add mucomyst . Multiple decubitus ulcers sacral with clean base wound care nurse gave recommendations, orders placed. CT abd/pelvis ordered by ID, showed no acute intra-abdominal process; interval presumed infectious complication right hip with small adjacent fluid collections inferior R buttock, could be abscesses ID recommending Ortho eval regarding CT findings Chronic Pain Continue patient's Dilaudid 8mg po q6h prn and Fentanyl patch 75mcg q72h Lovenox for DVT prophylaxis Other chronic medical conditions stable, Continue on home medications Case management consult to look into home situation Discharge Planning Plan to return home with [facility] upon discharge if able to arrange IV antibiotic infusion. Barbara Wang MD Oct 05, 2016 11:12
[2016-10-05] MEDS: RESP: ACETYLCYSTEINE 20% 30 ML NEB NEB SCH (16:00)
[2016-10-05] MEDS: DULoxetine HCl DR 20 MG CAP PO SCH (23:09)
[2016-10-06] VITALS (8 sets, daily range): BP systolic 99–135; BP diastolic 56–80; PULSE 86–109; RESP 18–22; TEMP 95.8–101; O2SAT 92–98
[2016-10-06] MEDS: RESP: ALBUTEROL 2.5 MG/IPRATROPIUM 0.5 MG NEB (PRN) NEB ×3 (00:39→16:24)
[2016-10-06] MEDS: RESP: ACETYLCYSTEINE 20% 30 ML NEB NEB SCH ×3 (00:39→16:00)
[2016-10-06] MEDS: SODIUM CHLOR 0.9% 1000 ML INJ 1,000 ML IV SCH ×2 (01:43→09:00)
[2016-10-06] MEDS: HYDROmorphone HCL 4 MG TAB PO PRN ×3 (05:06→21:49)
[2016-10-06] MEDS: DULoxetine HCl DR 60 MG CAP PO SCH (08:55)
[2016-10-06] MEDS: MULTIVITAMIN TAB PO SCH (08:55)
[2016-10-06] MEDS: BACLOFEN 10 MG TAB PO SCH ×3 (08:55→17:03)
[2016-10-06] MEDS: clonazePAM 0.5 MG TAB PO PRN (08:55)
[2016-10-06] MEDS: ASCORBIC ACID 500 MG TAB PO SCH ×2 (08:55→21:00)
[2016-10-06] MEDS: MIDODRINE 5 MG TAB PO SCH ×3 (08:55→17:03)
[2016-10-06] MEDS: COLLAGENASE OINT 30 GM TUBE TOP SCH (08:56)
[2016-10-06 09:10] LABS: AUTOMATED NEUTROPHIL # 3.7 TH/MM3 (1.8-7.7); BASOPHIL % 0.4 % (0.0-2.0); EOSINOPHIL # 0.1 TH/MM3 (0-0.4); EOSINOPHIL % 1.5 % (0.0-4.0); HEMATOCRIT 27.7 % (35.0-46.0); HEMO FLAGS DIFF FINAL; LYMPH % 30.8 % (9.0-44.0); LYMPHOCYTE # 1.9 TH/MM3 (1.0-4.8); MEAN CELL VOLUME 78.8 FL (80.0-100.0); MEAN CORPUSCULAR HEMOGLOBIN 26.1 PG (27.0-34.0); MEAN CORPUSCULAR HGB CONC 33.1 % (32.0-36.0); MONO % 7.4 % (0.0-8.0); NEUT % 59.9 % (16.0-70.0); PLATELET COUNT 333 TH/MM3 (150-450); RED BLOOD COUNT 3.52 MIL/MM3 (4.00-5.30); RED CELL DISTRIBUTION WIDTH 16.2 % (11.6-17.2); WHITE BLOOD COUNT 6.2 TH/MM3 (4.0-11.0)
--- NOTE | 2016-10-06 10:05 | HHI.PR ---
Subjective Remarks Patient with tremors says she got nebs albuterol and she is shaking now. No fevers or chills. Says last night after nebs she did cough a lot of sputum and cleared the lung. No palpitations, chest pain . Low potassium , replaced Objective Vitals Vital Signs Date Time Temp Pulse Resp B/P Pulse Ox O2 Delivery O2 Flow Rate FiO2 10/06/16 06:28 18 10/06/16 06:15 101.0 109 20 135/80 95 10/06/16 05:08 101 19 95 10/06/16 00:20 99.6 100 18 130/56 96 10/05/16 22:22 98 Nasal Cannula 3.00 10/05/16 21:02 99.0 104 18 132/93 98 10/05/16 16:00 97.1 104 18 120/69 97 10/05/16 11:05 97.2 101 21 120/65 100 I/O 10/05/16 10/05/16 10/05/16 10/06/16 10/06/16 10/06/16 07:00 15:00 23:00 07:00 15:00 23:00 Intake Total 990 ml 240 ml Output Total 600 ml 200 ml 1400 ml Balance 990 ml -360 ml -200 ml -1400 ml Intake Oral 240 ml IV Total 990 ml Output Urine Total 600 ml 200 ml 1400 ml Result Diagram: 10/06/16 0840 Imaging Last Impressions Abdomen/Pelvis CT 10/01/16 0000 Signed Impressions: Service Date/Time: Saturday, October 01, 2016 15:55 - CONCLUSION: No definite acute intra-abdominal process. Interval presumed infectious complication involving the right hip with small adjacent fluid collections in the inferior right buttock could be abscesses. See above discussion. Raji Do MD Chest X-Ray 09/28/16 1532 Signed Impressions: Service Date/Time: Wednesday, September 28, 2016 15:45 - CONCLUSION: No acute cardiopulmonary findings identified. Jean Oliva MD Objective Remarks GENERAL: Well-nourished, well-developed middle aged female patient in [facility]. SKIN: Warm and dry. No rash. HEENT: Normocephalic. Atraumatic. Pupils equal and round. No scleral icterus. No injection or drainage. Mucous membranes pink and moist. NECK: Supple. Trachea midline. CARDIOVASCULAR: Regular rate and rhythm. S1, S2 noted. No murmur appreciated. RESPIRATORY: No accessory muscle use. Clear to auscultation. Breath sounds equal bilaterally. GASTROINTESTINAL: Abdomen soft, non-tender, nondistended. Normoactive bowel sounds x4. Colostomy bag. MUSCULOSKELETAL: No obvious deformities. Extremities without clubbing, cyanosis , or edema. NEUROLOGICAL: Awake and alert. Paraplegia. Normal speech. PSYCHIATRIC: Appropriate mood and affect; insight and judgment normal. Date of Insertion: Sep 28, 2016 A/P Assessment and Plan 31-year-old female paraplegic doing intermittent self catheterization q 6 presenting with Sepsis due to Urinary tract infection- ESBL patient does intermittent self catheterization at home Cortez catheter placed 09/28 Urine C&S with Klebsiella Pneumoniae and E. Coli ESBL positive Infectious disease consulted, Dr. Rios following Continue on Invanz IV (plan for 14 days) Repeat CBC/BMP tomorrow Cough. Continue duonebs, add mucomyst . Multiple decubitus ulcers sacral with clean base wound care nurse gave recommendations, orders placed. CT abd/pelvis ordered by ID, showed no acute intra-abdominal process; interval presumed infectious complication right hip with small adjacent fluid collections inferior R buttock, could be abscesses ID recommending Ortho eval regarding CT findings Chronic Pain Continue patient's Dilaudid 8mg po q6h prn and Fentanyl patch 75mcg q72h Hypokalemia: Monitor and replace as need. Lovenox for DVT prophylaxis Other chronic medical conditions stable, Continue on home medications Case management consult to look into home situation Discharge Planning Plan to return home with [facility] upon discharge if able to arrange IV antibiotic infusion. Barbara Wang MD Oct 06, 2016 10:05
[2016-10-06 10:28] LABS: BICARBONATE 30.9 MEQ/L (21.0-32.0); POTASSIUM 3.4 MEQ/L (3.5-5.1)
[2016-10-06] MEDS: ERTAPENEM INJ 1,000 MG in SODIUM CHLORIDE 0.9% INJ 100 ML IV SCH (11:32)
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
[2016-10-06] MEDS: FLUCONAZOLE 100 MG TAB PO SCH (14:28)
[2016-10-06] MEDS ORDERED: RESP: ALBUTEROL 2.5 MG/IPRATROPIUM 0.5 MG NEB (PRN) NEB (16:00)
[2016-10-06] MEDS: DULoxetine HCl DR 20 MG CAP PO SCH (21:53)
[2016-10-07] VITALS (9 sets, daily range): BP systolic 109–139; BP diastolic 60–86; PULSE 76–104; RESP 18–20; TEMP 97.6–100.5; O2SAT 94–99
[2016-10-07] MEDS: RESP: ACETYLCYSTEINE 20% 30 ML NEB NEB SCH ×3 (00:35→15:36)
[2016-10-07] MEDS: RESP: ALBUTEROL 2.5 MG/IPRATROPIUM 0.5 MG NEB (PRN) NEB (00:35)
[2016-10-07] MEDS: HYDROmorphone HCL 4 MG TAB PO PRN ×4 (04:47→23:10)
[2016-10-07] MEDS: SODIUM CHLOR 0.9% 1000 ML INJ 1,000 ML IV SCH (07:55)
[2016-10-07] MEDS: DULoxetine HCl DR 60 MG CAP PO SCH (09:34)
[2016-10-07] MEDS: ASCORBIC ACID 500 MG TAB PO SCH ×2 (09:34→21:00)
[2016-10-07] MEDS: MULTIVITAMIN TAB PO SCH (09:34)
[2016-10-07] MEDS: COLLAGENASE OINT 30 GM TUBE TOP SCH ×2 (09:35→15:30)
[2016-10-07] MEDS: MIDODRINE 5 MG TAB PO SCH ×3 (09:35→17:20)
[2016-10-07] MEDS: FLUCONAZOLE 100 MG TAB PO SCH (09:35)
[2016-10-07] MEDS: BACLOFEN 10 MG TAB PO SCH ×3 (09:35→17:20)
--- NOTE | 2016-10-07 10:26 | HHI.PR ---
Subjective Remarks Patient in nad. No n/v/d/c. Patietn with tremors after nebs. Had temp 100.[address] Canseco ID OK for midline. Objective Vitals Vital Signs Date Time Temp Pulse Resp B/P Pulse Ox O2 Delivery O2 Flow Rate FiO2 10/07/16 08:53 99.8 104 18 109/60 94 10/07/16 08:28 94 21 10/07/16 04:00 99.2 100 20 139/78 97 10/07/16 00:39 99 Nasal Cannula 10/07/16 00:00 98.3 88 20 123/77 96 10/06/16 20:00 98.1 94 20 129/80 95 10/06/16 18:19 96.8 103 22 99/62 92 10/06/16 14:51 96 Nasal Cannula 3.00 10/06/16 14:36 95.8 86 22 120/78 97 I/O 10/06/16 10/06/16 10/06/16 10/07/16 10/07/16 10/07/16 07:00 15:00 23:00 07:00 15:00 23:00 Intake Total 480 ml 120 ml Output Total 1400 ml 1500 ml 1000 ml Balance -1400 ml -1020 ml -880 ml Intake Oral 480 ml 120 ml Output Urine Total 1400 ml 1500 ml 1000 ml Result Diagram: 10/06/16 0840 10/06/16 0840 Imaging Last Impressions Abdomen/Pelvis CT 10/01/16 0000 Signed Impressions: Service Date/Time: Saturday, October 01, 2016 15:55 - CONCLUSION: No definite acute intra-abdominal process. Interval presumed infectious complication involving the right hip with small adjacent fluid collections in the inferior right buttock could be abscesses. See above discussion. Raji Do MD Chest X-Ray 09/28/16 1532 Signed Impressions: Service Date/Time: Wednesday, September 28, 2016 15:45 - CONCLUSION: No acute cardiopulmonary findings identified. Jean Oliva MD Objective Remarks GENERAL: Well-nourished, well-developed middle aged female patient in [facility]. SKIN: Warm and dry. No rash. HEENT: Normocephalic. Atraumatic. Pupils equal and round. No scleral icterus. No injection or drainage. Mucous membranes pink and moist. NECK: Supple. Trachea midline. CARDIOVASCULAR: Regular rate and rhythm. S1, S2 noted. No murmur appreciated. RESPIRATORY: No accessory muscle use. Clear to auscultation. Breath sounds equal bilaterally. GASTROINTESTINAL: Abdomen soft, non-tender, nondistended. Normoactive bowel sounds x4. Colostomy bag. MUSCULOSKELETAL: No obvious deformities. Extremities without clubbing, cyanosis , or edema. NEUROLOGICAL: Awake and alert. Paraplegia. Normal speech. PSYCHIATRIC: Appropriate mood and affect; insight and judgment normal. Date of Insertion: Sep 28, 2016 A/P Assessment and Plan 31-year-old female paraplegic doing intermittent self catheterization q 6 presenting with Sepsis due to Urinary tract infection- ESBL patient does intermittent self catheterization at home Cortez catheter placed 09/28 Urine C&S with Klebsiella Pneumoniae and E. Coli ESBL positive Infectious disease consulted, Dr. Rios following Continue on Invanz IV (plan for 14 days)- until October 17 Noted wuth Temp 101 10/02 . Add Diflucan Monitor temps - she has new fevers and may need new work-up if with persistent fevers Needs to be afebrile before she is stable for D/C Temp 100.5 (on 10/07) per Dr Rios ID OK to place midline Needs wound care follow-up Wound care following Note: patient refusing SNF. Her HHC needs are extensive, having 3 large open wounds, plus IV Abx, bedbound Cough. Taper duonebs, DC mucomyst . Multiple decubitus ulcers sacral with clean base wound care nurse gave recommendations, orders placed. CT abd/pelvis ordered by ID, showed no acute intra-abdominal process; interval presumed infectious complication right hip with small adjacent fluid collections inferior R buttock, could be abscesses ID recommending Ortho eval regarding CT findings. Seen by Ortho no surgical intervention, continue wound care. Chronic Pain Continue patient's Dilaudid 8mg po q6h prn and Fentanyl patch 75mcg q72h Hypokalemia: Monitor and replace as need. Lovenox for DVT prophylaxis Other chronic medical conditions stable, Continue on home medications Case management consult to look into home situation Discharge Planning Plan to return home with HHC upon discharge if able to arrange IV antibiotic infusion. Note: patient refusing SNF. Her HHC needs are extensive, having 3 large open wounds, plus IV Abx, bedbound Discussed with the case management regarding DC plan DC when arrangements done Discussed with the patient, nurse Barbara Wang MD Oct 07, 2016 10:26
[2016-10-07] MEDS: ERTAPENEM INJ 1,000 MG in SODIUM CHLORIDE 0.9% INJ 100 ML IV SCH (12:22)
[2016-10-07] MEDS: clonazePAM 0.5 MG TAB PO PRN (13:12)
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
[2016-10-07] MEDS: REMOVE OLD DURAGESIC (FENTANYL) PATCH TD SCH (20:00)
[2016-10-07] MEDS: fentaNYL 75 MCG/HR PATCH T-DERMAL SCH (22:20)
[2016-10-07] MEDS: DULoxetine HCl DR 20 MG CAP PO SCH (22:20)
[2016-10-08] VITALS (8 sets, daily range): BP systolic 103–124; BP diastolic 56–72; PULSE 74–105; RESP 18–21; TEMP 97.5–99.7; O2SAT 92–98
[2016-10-08] MEDS: HYDROmorphone HCL 4 MG TAB PO PRN ×3 (05:43→17:19)
[2016-10-08 06:19] LABS: AUTOMATED NEUTROPHIL # 4.8 TH/MM3 (1.8-7.7); BASOPHIL % 0.4 % (0.0-2.0); EOSINOPHIL # 0.2 TH/MM3 (0-0.4); HEMATOCRIT 29.5 % (35.0-46.0); HEMO FLAGS DIFF FINAL; LYMPH % 23.8 % (9.0-44.0); LYMPHOCYTE # 1.7 TH/MM3 (1.0-4.8); MEAN CELL VOLUME 78.1 FL (80.0-100.0); MEAN CORPUSCULAR HEMOGLOBIN 26.3 PG (27.0-34.0); MEAN CORPUSCULAR HGB CONC 33.7 % (32.0-36.0); MONO % 6.6 % (0.0-8.0); NEUT % 66.2 % (16.0-70.0); PLATELET COUNT 446 TH/MM3 (150-450); RED BLOOD COUNT 3.78 MIL/MM3 (4.00-5.30); RED CELL DISTRIBUTION WIDTH 16.5 % (11.6-17.2); WHITE BLOOD COUNT 7.2 TH/MM3 (4.0-11.0)
[2016-10-08 06:56] LABS: POTASSIUM 4.2 MEQ/L (3.5-5.1)
[2016-10-08] MEDS: RESP: ACETYLCYSTEINE 20% 30 ML NEB NEB SCH ×4 (08:11→23:49)
[2016-10-08] MEDS: RESP: ALBUTEROL 2.5 MG/IPRATROPIUM 0.5 MG NEB (PRN) NEB ×2 (08:11→15:34)
--- NOTE | 2016-10-08 09:42 | PD.ORT.PN ---
Subjective Subjective Remarks Resting comfortably Objective Vitals Vital Signs Date Time Temp Pulse Resp B/P Pulse Ox O2 Delivery O2 Flow Rate FiO2 10/08/16 08:15 92 Nasal Cannula 4.00 10/08/16 08:00 99.7 105 21 110/56 92 10/08/16 04:00 97.6 74 18 116/66 98 10/08/16 00:00 97.5 77 18 120/66 98 10/07/16 21:01 95 10/07/16 20:00 97.6 76 18 118/70 98 10/07/16 17:55 98.2 93 18 127/86 94 10/07/16 12:43 100.5 94 18 121/80 95 I/O 10/07/16 10/07/16 10/07/16 10/08/16 10/08/16 10/08/16 07:00 15:00 23:00 07:00 15:00 23:00 Intake Total 120 ml 240 ml 360 ml Output Total 1000 ml 750 ml Balance -880 ml -510 ml 360 ml Intake Oral 120 ml 240 ml 360 ml Output Urine Total 1000 ml 750 ml Result Diagram: 10/08/16 0600 10/08/16 0600 Objective Remarks RLE: decubitus ulcer on right side approx 5x5cm. tunneling and wound packed. no active drainage. mild erythema. no purulence. Surgical incision healed Assessment & Plan Assessment and Plan 1) Right Hip resection with tunneling decubitus ulcers -no treatment needed from Ortho standpoint at this time -maintain current dressing change regimen -will defer management of ulcers to Plastics. Willard Mason Jr. Oct 08, 2016 09:42
[2016-10-08] MEDS: ASCORBIC ACID 500 MG TAB PO SCH ×2 (09:51→21:00)
[2016-10-08] MEDS: MULTIVITAMIN TAB PO SCH (09:52)
[2016-10-08] MEDS: DULoxetine HCl DR 60 MG CAP PO SCH (09:52)
[2016-10-08] MEDS: BACLOFEN 10 MG TAB PO SCH ×3 (09:52→17:18)
[2016-10-08] MEDS: FLUCONAZOLE 100 MG TAB PO SCH (09:52)
[2016-10-08] MEDS: MIDODRINE 5 MG TAB PO SCH ×3 (09:52→17:19)
[2016-10-08] MEDS: COLLAGENASE OINT 30 GM TUBE TOP SCH (09:53)
[2016-10-08] MEDS: ERTAPENEM INJ 1,000 MG in SODIUM CHLORIDE 0.9% INJ 100 ML IV SCH (13:06)
[2016-10-08] MEDS: clonazePAM 0.5 MG TAB PO PRN (13:16)
--- NOTE | 2016-10-08 13:23 | HHI.FF ---
Infusion Therapy Location of Infusion Therapy: Home [facility] IV Infusion Order Patient Information Patient Weight 71.7 kg Diagnosis: Diagnosis UTI Coded Allergies: Penicillin (Verified Allergy, Severe, HIVES, 09/28/16) Daptomycin (Verified Allergy, Mild, Rash, 09/28/16) *MDRO Multi-Drug Resistant Organism (Verified Adverse Reaction, Unknown, ) MRSA (back wound) - 06/16/2015; (hip)-07/30/16 XDR-Pseudomonas Aeruginosa (foot)-07/23/16 ESBL (urine)-09/29/16 Administer Medication Ertapenem 1 gram IV q 24 hours Stop Treatment: Sep 16, 2016 Additional Information Additional Instructions [x] Peripheral flush and dressing changes per protocol [x] 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 [] May leave port accessed during therapy. [] May leave peripheral site accessed for duration of therapy. [x] If patient has SOB or respiratory distress, check oxygen saturation. If less than 90% or clinical signs of respiratory distress, administer oxygen at 2 L/min. via nasal cannula and notify physician. [x] Anaphylaxis/Reaction orders: * Stop infusion. * Keep IV line open with saline flush. * Notify physician. * Monitor vital signs every 15 minutes until symptoms resolve. * Check Oxygen saturation; Oxygen at 2 L/min. via nasal cannula if less than 90% or clinical signs of respiratory distress. * Administer diphenhydramine (Benadryl) 25 mg IV STAT, (unless patient has received as pre-med). May repeat once, if necessary. * Solu-Cortef 250 mg IVP over 30-60 seconds, use 100 mg vials for each dissolution. * Epinephrine (1mg/1 ml) 0.3 mg subcutaneously or IVP now with any signs of respiratory distress. * Check with physician for new additional pre-med orders if patient is re- challenged or re-treated. [x] May remove PICC line when treatment complete, after confirming with Physician. [x] If the patient is admitted to the hospital, the ED, or transferred via [facility] , complete transfer form including medication reconciliation order sheet. Laboratory Tests Weekly Labs: CBC w/diff, Creatinine (labs Oct 10, 2016, copy to pa) Yi Rios MD Oct 08, 2016 13:23
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
--- NOTE | 2016-10-08 13:30 | HHI.PR ---
Subjective Remarks In bed. Per nurse she did refuse dressing changes. Patient says she will have it later or tomorrow. Says she got nebs in the morning and she doesn have shaking hands thereafter. Feels much better now. Thinks she had fevers. SOB improving. No n/v/d/c. Objective Vitals Vital Signs Date Time Temp Pulse Resp B/P Pulse Ox O2 Delivery O2 Flow Rate FiO2 10/08/16 12:26 15 10/08/16 12:00 97.7 98 20 103/59 94 10/08/16 08:15 92 Nasal Cannula 4.00 10/08/16 08:00 99.7 105 21 110/56 92 10/08/16 04:00 97.6 74 18 116/66 98 10/08/16 00:00 97.5 77 18 120/66 98 10/07/16 21:01 95 10/07/16 20:00 97.6 76 18 118/70 98 10/07/16 17:55 98.2 93 18 127/86 94 I/O 10/07/16 10/07/16 10/07/16 10/08/16 10/08/16 10/08/16 07:00 15:00 23:00 07:00 15:00 23:00 Intake Total 120 ml 240 ml 360 ml Output Total 1000 ml 750 ml Balance -880 ml -510 ml 360 ml Intake Oral 120 ml 240 ml 360 ml Output Urine Total 1000 ml 750 ml Result Diagram: 10/08/16 0600 10/08/16 0600 Imaging Last Impressions Abdomen/Pelvis CT 10/01/16 0000 Signed Impressions: Service Date/Time: Saturday, October 01, 2016 15:55 - CONCLUSION: No definite acute intra-abdominal process. Interval presumed infectious complication involving the right hip with small adjacent fluid collections in the inferior right buttock could be abscesses. See above discussion. Raji Do MD Chest X-Ray 09/28/16 1532 Signed Impressions: Service Date/Time: Wednesday, September 28, 2016 15:45 - CONCLUSION: No acute cardiopulmonary findings identified. Jean Oliva MD Objective Remarks GENERAL: Well-nourished, well-developed middle aged female patient in [facility]. SKIN: Warm and dry. No rash. HEENT: Normocephalic. Atraumatic. Pupils equal and round. No scleral icterus. No injection or drainage. Mucous membranes pink and moist. NECK: Supple. Trachea midline. CARDIOVASCULAR: Regular rate and rhythm. S1, S2 noted. No murmur appreciated. RESPIRATORY: No accessory muscle use. Clear to auscultation. Breath sounds equal bilaterally. GASTROINTESTINAL: Abdomen soft, non-tender, nondistended. Normoactive bowel sounds x4. Colostomy bag. MUSCULOSKELETAL: No obvious deformities. Extremities without clubbing, cyanosis , or edema. NEUROLOGICAL: Awake and alert. Paraplegia. Normal speech. PSYCHIATRIC: Appropriate mood and affect; insight and judgment normal. Date of Insertion: Sep 28, 2016 A/P Assessment and Plan 31-year-old female paraplegic doing intermittent self catheterization q 6 presenting with Sepsis due to Urinary tract infection- ESBL patient does intermittent self catheterization at home Cortez catheter placed 09/28 Urine C&S with Klebsiella Pneumoniae and E. Coli ESBL positive Infectious disease consulted, Dr. Rios following Continue on Invanz IV (plan for 14 days)- until October 17 Noted wuth Temp 101 10/02 . Add Diflucan Monitor temps - she has new fevers and may need new work-up if with persistent fevers Needs to be afebrile before she is stable for D/C Temp 100.5 (on 10/07) per Dr Rios ID OK to place midline Needs wound care follow-up Wound care following Note: patient refusing SNF. Her HHC needs are extensive, having 3 large open wounds, plus IV Abx, bedbound Cough. Taper duonebs, DC mucomyst . Multiple decubitus ulcers sacral with clean base wound care nurse gave recommendations, orders placed. CT abd/pelvis ordered by ID, showed no acute intra-abdominal process; interval presumed infectious complication right hip with small adjacent fluid collections inferior R buttock, could be abscesses ID recommending Ortho eval regarding CT findings. Seen by Ortho no surgical intervention, continue wound care. Chronic Pain Continue patient's Dilaudid 8mg po q6h prn and Fentanyl patch 75mcg q72h Hypokalemia: Monitor and replace as need. Lovenox for DVT prophylaxis Other chronic medical conditions stable, Continue on home medications Case management consult to look into home situation Discharge Planning Plan to return home with HHC upon discharge if able to arrange IV antibiotic infusion. Note: patient refusing SNF. Her HHC needs are extensive, having 3 large open wounds, plus IV Abx, bedbound Continue on Invanz IV (plan for 14 days)- until October 17 per ID recommendations Discussed with the case management regarding DC plan DC when arrangements done Discussed with the patient, nurse Barbara Wang MD Oct 08, 2016 13:30
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
--- NOTE | 2016-10-08 14:57 | HHI.FF ---
Face to Face Verification Diagnosis: (1) Abscess of sacrum (2) Anxiety disorder (3) Major depressive disorder, recurrent, moderate (4) Depression (5) ANGI (acute kidney injury) (6) History of depression (7) UTI (urinary tract infection) (8) Osteomyelitis (9) Septic joint (10) Ulcer of left heel (11) Paraplegia following spinal cord injury (12) Decubitus ulcer of right ischium, stage 4 (13) Total self-care deficit (14) Quadriplegia following spinal cord injury (15) Bacteremia (16) Pressure ulcer of sacral region, stage 4 Physical Therapy Order: Evaluate and Treat Home Health Nursing Order: Medical education Signs/symptoms of disease process Medication education-adverse effect Wound care and dressing changes Nursing assessment with vital signs Instructions: nursing for dressing changes, resume care nursing for smith care I have seen patient Kerry Murray on 10/08/16. My clinical findings support the need for the requested home health care services because: Ltd mobility - disease progression I certify that my clinical findings support that this patient is homebound because: Post-op weakness Barbara Wang MD Oct 08, 2016 14:57
[2016-10-08] MEDS ORDERED: VENTAER INH (14:58)
[2016-10-08] MEDS ORDERED: IPRA17I INH (14:58)
[2016-10-08] MEDS ORDERED: DILA2TAB2 PO ×2 (15:03→15:09)
[2016-10-09] MEDS: HYDROmorphone HCL 4 MG TAB PO PRN ×3 (00:11→11:37)
[2016-10-09] MEDS: DULoxetine HCl DR 20 MG CAP PO SCH (00:11)
[2016-10-09 04:00] VITALS: BP 112/65; PULSE 77; RESP 18; TEMP 99.3; O2SAT 97
[2016-10-09] MEDS: RESP: ACETYLCYSTEINE 20% 30 ML NEB NEB SCH (08:00)
[2016-10-09] MEDS: SODIUM CHLOR 0.9% 1000 ML INJ 1,000 ML IV SCH (08:14)
[2016-10-09] MEDS: MIDODRINE 5 MG TAB PO SCH ×2 (08:22→11:36)
[2016-10-09] MEDS: MULTIVITAMIN TAB PO SCH (08:22)
[2016-10-09] MEDS: FLUCONAZOLE 100 MG TAB PO SCH (08:22)
[2016-10-09] MEDS: DULoxetine HCl DR 60 MG CAP PO SCH (08:22)
[2016-10-09] MEDS: BACLOFEN 10 MG TAB PO SCH ×2 (08:23→11:36)
[2016-10-09] MEDS: ASCORBIC ACID 500 MG TAB PO SCH (08:23)
[2016-10-09] MEDS: COLLAGENASE OINT 30 GM TUBE TOP SCH (08:24)
--- NOTE | 2016-10-09 08:44 | HHI.PR ---
Subjective Remarks Feels much better. Denies chest pain , n/v/d/c. Patient says everything is set up for her to go home. She is also telling me she needs more pain meds until she will get to her pain specialist Objective Vitals Vital Signs Date Time Temp Pulse Resp B/P Pulse Ox O2 Delivery O2 Flow Rate FiO2 10/09/16 04:00 99.3 77 18 112/65 97 10/08/16 20:05 93 21 10/08/16 20:00 97.7 80 18 116/64 94 10/08/16 20:00 97.7 80 18 116/64 94 10/08/16 18:19 15 10/08/16 16:00 98.4 98 18 124/72 93 10/08/16 12:00 97.7 98 20 103/59 94 I/O 10/08/16 10/08/16 10/08/16 10/09/16 10/09/16 10/09/16 07:00 15:00 23:00 07:00 15:00 23:00 Intake Total 360 ml 240 ml Output Total 1370 ml 650 ml Balance 360 ml 240 ml -1370 ml -650 ml Intake Oral 360 ml 240 ml Output Urine Total 1370 ml 650 ml # Voids 4 Result Diagram: 10/08/16 0600 10/08/16 0600 Imaging Last Impressions Abdomen/Pelvis CT 10/01/16 0000 Signed Impressions: Service Date/Time: Saturday, October 01, 2016 15:55 - CONCLUSION: No definite acute intra-abdominal process. Interval presumed infectious complication involving the right hip with small adjacent fluid collections in the inferior right buttock could be abscesses. See above discussion. Raji Do MD Chest X-Ray 09/28/16 1532 Signed Impressions: Service Date/Time: Wednesday, September 28, 2016 15:45 - CONCLUSION: No acute cardiopulmonary findings identified. Jean Oliva MD Objective Remarks GENERAL: Well-nourished, well-developed middle aged female patient in [facility]. SKIN: Warm and dry. No rash. HEENT: Normocephalic. Atraumatic. Pupils equal and round. No scleral icterus. No injection or drainage. Mucous membranes pink and moist. NECK: Supple. Trachea midline. CARDIOVASCULAR: Regular rate and rhythm. S1, S2 noted. No murmur appreciated. RESPIRATORY: No accessory muscle use. Clear to auscultation. Breath sounds equal bilaterally. GASTROINTESTINAL: Abdomen soft, non-tender, nondistended. Normoactive bowel sounds x4. Colostomy bag. MUSCULOSKELETAL: No obvious deformities. Extremities without clubbing, cyanosis , or edema. NEUROLOGICAL: Awake and alert. Paraplegia. Normal speech. PSYCHIATRIC: Appropriate mood and affect; insight and judgment normal. Procedures none Date of Insertion: Sep 28, 2016 A/P Problem List: (1) Sepsis ICD Code: A41.9 Status: Resolved (2) UTI (urinary tract infection) ICD Code: N39.0 Status: Acute (3) Quadriplegia following spinal cord injury ICD Code: G82.50 Status: Chronic (4) Bipolar disorder ICD Code: F31.9 Status: Chronic Assessment and Plan 31-year-old female paraplegic doing intermittent self catheterization q 6 presenting with Sepsis due to Urinary tract infection- ESBL patient does intermittent self catheterization at home Cortez catheter placed 09/28 Urine C&S with Klebsiella Pneumoniae and E. Coli ESBL positive Infectious disease consulted, Dr. Rios following Continue on Invanz IV (plan for 14 days)- until October 17 Noted wuth Temp 101 10/02 . Add Diflucan Monitor temps - she has new fevers and may need new work-up if with persistent fevers Needs to be afebrile before she is stable for D/C Temp 100.5 (on 10/07) per Dr Rios ID OK to place midline Needs wound care follow-up Wound care following Note: patient refusing SNF. Her HHC needs are extensive, having 3 large open wounds, plus IV Abx, bedbound Cough. Taper duonebs, DC mucomyst . Multiple decubitus ulcers sacral with clean base wound care nurse gave recommendations, orders placed. CT abd/pelvis ordered by ID, showed no acute intra-abdominal process; interval presumed infectious complication right hip with small adjacent fluid collections inferior R buttock, could be abscesses ID recommending Ortho eval regarding CT findings. Seen by Ortho no surgical intervention, continue wound care. Chronic Pain Continue patient's Dilaudid 8mg po q6h prn and Fentanyl patch 75mcg q72h Hypokalemia: Monitor and replace as need. Lovenox for DVT prophylaxis Other chronic medical conditions stable, Continue on home medications Case management consult to look into home situation Discharge Planning Plan to return home with HHC upon discharge if able to arrange IV antibiotic infusion. Note: patient refusing SNF. Her HHC needs are extensive, having 3 large open wounds, plus IV Abx, bedbound Continue on Invanz IV (plan for 14 days)- until October 17 per ID recommendations Discussed with the case management regarding DC plan DC when arrangements done Discussed with the patient, nurse Discharge home today all arrangements done. Barbara Wang MD Oct 09, 2016 08:44
[2016-10-09] MEDS ORDERED: DILA2TAB2 PO (10:54)
[2016-10-09] MEDS: ERTAPENEM INJ 1,000 MG in SODIUM CHLORIDE 0.9% INJ 100 ML IV SCH (11:11)
[2016-10-10] VITALS: BP 136/82; PULSE 67; RESP 18; TEMP 96; O2SAT 98
[2016-10-10 04:00] VITALS: BP 107/71; PULSE 67; RESP 16; TEMP 97.2; O2SAT 96
== END 2016-10-09 13:02 | disposition home health service (06) | DRG 871 ==
LOC: NEPA 15:11 → NEDA 17:54 → NEPHCDU 21:30 → OBSVTOIN 09-30 10:59 → N05A 10-04 17:58
PROVIDERS: ADMIT Hospitalist; ATTEND Hospitalist
DX: A41.51 Sepsis due to Escherichia coli [E. coli] (principal); L89.154 Pressure ulcer of sacral region, stage 4; L89.309 Pressure ulcer of unspecified buttock, unspecified stage; G82.20 Paraplegia, unspecified; N39.0 Urinary tract infection, site not specified; L02.31 Cutaneous abscess of buttock; A41.4 Sepsis due to anaerobes; I10 Essential (primary) hypertension; G47.00 Insomnia, unspecified; F17.210 Nicotine dependence, cigarettes, uncomplicated; R33.9 Retention of urine, unspecified; G89.29 Other chronic pain; R05 Cough; E87.6 Hypokalemia; F41.9 Anxiety disorder, unspecified; F31.9 Bipolar disorder, unspecified; V89.2XXS Person injured in unspecified motor-vehicle accident, traffic, sequela; Z74.01 Bed confinement status; Z85.41 Personal history of malignant neoplasm of cervix uteri; Z86.14 Personal history of Methicillin resistant Staphylococcus aureus infection; Z88.0 Allergy status to penicillin; Z88.1 Allergy status to other antibiotic agents; Z93.3 Colostomy status
CPT/HCPCS: 36569; 51702; 71010; 74177; 76937; 80048; 80053; 81001; 83605; 83735; 85025; 85610; 85730; 87040; 87077; 87086; 87186; 93005; 94640; 94664; 96361; 96374; G0378; J0692; J0744; J1170; J1335; J1956; J7030; J7608; Q9963; Q9967

== ENCOUNTER 2017-11-13 13:32 | Emergency (ER) | payer OTHER ==
[~2017-11-13] VITALS: Ht 154.9 cm; Wt 65.0 kg
[~2017-11-13 13:32] MED LIST changes: +CYCL10TA PO; -DILA2TAB2 PO; +DILA2TAB4 PO; -FAMO20TA2 PO; +FOAMPAD2; +IPRA17I INH; +OXYC1TAB63 PO; -SILV1CRE20 TOP; +SILV1MIS21 TOPICAL; +VENTAER INH; +[UNRECOGNIZED DRUG - CODE]; +[UNRECOGNIZED DRUG - CODE]; +[UNRECOGNIZED DRUG - CODE]; +[UNRECOGNIZED DRUG - CODE]; +[UNRECOGNIZED DRUG - CODE] TOPICAL; +[UNRECOGNIZED DRUG - REMARK]; +[UNRECOGNIZED DRUG - SUPPLY]
[2017-11-13 13:39] VITALS: BP 109/54; PULSE 106; RESP 18; TEMP 98; O2SAT 100
--- NOTE | 2017-11-13 13:57 | PD ---
HPI Chief Complaint: Complaint Time Seen by Provider: 13:43 Travel History International Travel<30 days: No Contact w/Intl Traveler<30days: No Traveled to known affect area: No History of Present Illness HPI 32-year-old female with history of paraplegia from a spinal cord injury presents emergency department for evaluation what she believes is UTI. Patient has an indwelling catheter. She has run into an insurance issue where she has not received any catheter or had the nurse at home to change it. She is working this out, however in the meantime she believes she has gotten a UTI. Her urine has turned darker. She is having lower abdominal spasms. She has felt febrile and chilled but has not had a definite fever. Denies any nausea or vomiting. No diarrhea. She has no other symptoms to report at this time. PFSH Past Medical History Hx Anticoagulant Therapy: No Arthritis: No Asthma: No Blood Disorders: No Bipolar Disorder: Yes (FIRST DIAGNOSED AT AGE 14 YRS OLD; HAS BEEN ON LITHIUM 4 MOS) Anxiety: Yes Depression: Yes Heart Rhythm Problems: No Cancer: Yes (cervical cancer 1999) Cardiovascular Problems: No High Cholesterol: No Chemotherapy: No Chest Pain: No Congestive Heart Failure: No COPD: No Cerebrovascular Accident: No Diabetes: No Diminished Hearing: No Endocrine: No Gastrointestinal Disorders: Yes (hep c) GERD: No Genitourinary: Yes (incontinence ) Headaches: Yes Hiatal Hernia: No Hypertension: Yes Immune Disorder: No Implanted Vascular Access Dvce: Yes Insomnia: Yes Kidney Stones: No Medical other: Yes (FLAP SURGERY 09/03/17) Musculoskeletal: Yes (paralysis T-3 and down) Neurologic: Yes Psychiatric: Yes Reproductive: No Respiratory: No Immunizations Current: No Migraines: Yes Radiation Therapy: No Renal Failure: No Seizures: No Sickle Cell Disease: No Sleep Apnea: No Ulcer: No ?: Not Menopausal: Yes : 3 Para: 3 Miscarriage: 0 : 0 Past Surgical History Abdominal Surgery: Yes (colostomy) AICD: No Arteriovenous Shunt: No Body Medical Devices: Has colostomy Cardiac Surgery: No Section: Yes (X 2) Ear Surgery: No Endocrine Surgery: No Eye Surgery: No Genitourinary Surgery: No Gynecologic Surgery: No Hysterectomy: No Insulin Pump: No Joint Replacement: No Oral Surgery: No Pacemaker: No Thoracic Surgery: No Other Surgery: Yes (2 c-sections, metal natasha left femur, left hand reconstruction, left heel,) Social History Alcohol Use: No Tobacco Use: No Substance Use: No Allergies-Medications (Allergen,Severity, Reaction): Coded Allergies: penicillin G (Unverified Allergy, Severe, HIVES, 11/13/17) daptomycin (Unverified Allergy, Mild, Rash, 11/13/17) *MDRO Multi-Drug Resistant Organism (Verified Adverse Reaction, Unknown, ) MRSA (back wound) - 06/16/2015; (hip)-07/30/16 XDR-Pseudomonas Aeruginosa (foot)-07/23/16 ESBL (urine)-09/29/16 Reported Meds & Prescriptions Reported Meds & Active Scripts Active Levaquin (Levofloxacin) 750 Mg Tablet 750 Mg PO DAILY 7 Days Review of Systems Except as stated in HPI: all other systems reviewed are Neg Physical Exam Narrative GENERAL: Well-nourished female patient, no acute distress. SKIN: Focused skin assessment warm/dry. HEAD: Atraumatic. Normocephalic. EYES: Pupils equal and round. No scleral icterus. No injection or drainage. ENT: No nasal bleeding or discharge. Mucous membranes pink and moist. NECK: Trachea midline. No JVD. CARDIOVASCULAR: Regular rate and rhythm. No murmur appreciated. RESPIRATORY: No accessory muscle use. Clear to auscultation. Breath sounds equal bilaterally. GASTROINTESTINAL: Abdomen soft, non-tender, nondistended. Hepatic and splenic margins not palpable. MUSCULOSKELETAL: No obvious deformities. No clubbing. No cyanosis. No edema. NEUROLOGICAL: Awake and alert. Normal speech. PSYCHIATRIC: Appropriate mood and affect; insight and judgment normal. Data Data Last Documented VS Vital Signs Date Time Temp Pulse Resp B/P (MAP) Pulse Ox O2 Delivery O2 Flow Rate FiO2 11/13/17 17:01 11/13/17 14:41 73 20 97 Room Air 11/13/17 13:39 98.0 Orders Orders Replace Cortez (11/13/17 13:56) Urinalysis - C+S If Indicated (11/13/17 13:56) Urine Culture (11/13/17 14:35) Ceftriaxone Inj (Rocephin Inj) (11/13/17 15:15) Lidocaine Pf 1% Inj (Xylocaine-Mpf 1% In (11/13/17 15:15) Ed Discharge Order (11/13/17 15:09) Levofloxacin (Levaquin) (11/13/17 15:15) Labs Laboratory Tests Test 11/13/17 14:35 Urine Color YELLOW Urine Turbidity CLOUDY Urine pH 8.0 Urine Specific [place] 1.019 Urine Protein 100 mg/dL Urine Glucose (UA) NEG mg/dL Urine Ketones NEG mg/dL Urine Occult Blood SMALL Urine Nitrite POS Urine Bilirubin NEG Urine Urobilinogen LESS THAN 2.0 MG/DL Urine Leukocyte Esterase LARGE Urine RBC 29 /hpf Urine WBC /hpf Urine WBC Clumps MOD Urine Amorphous Sediment RARE Urine Bacteria MANY /hpf Urine Mucus MOD /lpf Microscopic Urinalysis Comment CATH-CULTURE IND MDM Medical Decision Making Medical Screen Exam Complete: Yes Emergency Medical Condition: Yes Medical Record Reviewed: Yes Differential Diagnosis Cystitis versus vaginitis versus urethritis versus urosepsis Narrative Course 32-year-old female presents emergency department for evaluation what she believes is urinary tract infection. Patient has had many of these in the past. She does have an indwelling catheter. Catheter is replaced and urinalysis is sent. Laboratory Tests Test 11/13/17 14:35 Urine Color YELLOW Urine Turbidity CLOUDY Urine pH 8.0 Urine Specific [place] 1.019 Urine Protein 100 mg/dL Urine Glucose (UA) NEG mg/dL Urine Ketones NEG mg/dL Urine Occult Blood SMALL Urine Nitrite POS Urine Bilirubin NEG Urine Urobilinogen LESS THAN 2.0 MG/DL Urine Leukocyte Esterase LARGE Urine RBC 29 /hpf Urine WBC /hpf Urine WBC Clumps MOD Urine Amorphous Sediment RARE Urine Bacteria MANY /hpf Urine Mucus MOD /lpf Microscopic Urinalysis Comment CATH-CULTURE IND Patient is given a dose of Levaquin here and will be started on Levaquin for home. She is encouraged to follow-up with a primary care provider and return immediately with acute worsening symptoms. Diagnosis Primary Impression: UTI (urinary tract infection) Qualified Codes: T83.511A - Infection and inflammatory reaction due to indwelling urethral catheter, initial encounter; N39.0 - Urinary tract infection , site not specified Additional Impression: Paraplegia Referrals: Primary Care Physician Patient Instructions: Catheter-associated Urinary Tract Infection (ED), General Instructions Additional Instructions: Maintain adequate oral hydration Follow-up with a primary care provider Return immediately with acute worsening of symptoms Med/Other Pt SpecificInfo: Prescription(s) given Scripts Levofloxacin (Levaquin) 750 Mg Tablet 750 MG PO DAILY for Infection for 7 Days, #7 TAB 0 Refills Prov: Amber Barreto 11/13/17 Disposition: 01 DISCHARGE HOME Condition: Stable Amber Barreto November 13, 2017 13:57
[2017-11-13 14:41] VITALS: BP 110/74; PULSE 73; RESP 20; O2SAT 97
[2017-11-13 14:59] LABS: AMORPHOUS SEDIMENT, URINE RARE; BACTERIA, URINE MANY /hpf; BILIRUBIN, URINE NEG (NEG); BLOOD, URINE SMALL (NEG); GLUCOSE,URINE NEG (NEG); KETONE, URINE NEG (NEG); MUCUS URINE MOD /lpf (OCC); NITRITE,URINE POS (NEG); URINE COLOR YELLOW (YELLW/STRAW); URINE LEUKOCYTE ESTERASE LARGE (NEG); WHITE BLOOD CELL CLUMPS MOD
[2017-11-13] MEDS ORDERED: LEVA750T9 PO (15:14)
[2017-11-13] MEDS ORDERED: LIDOCAINE HCL 1% PF 30 ML VIAL XX ONE (15:15)
[2017-11-13] MEDS ORDERED: LEVOFLOXACIN 750 MG TAB PO ONE (15:15)
== END 2017-11-13 18:53 | disposition home or self-care (01) ==
LOC: NEPE 13:32
DX: T83.511A Infection and inflammatory reaction due to indwelling urethral catheter, initial encounter (principal); G82.20 Paraplegia, unspecified
CPT/HCPCS: 51702; 81001; 87077; 87086; 87186

== ENCOUNTER 2018-01-17 19:18 | Inpatient (IN) ==
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
[2018-01-17] MEDS ORDERED: Sod Chloride 0.9% Inj 1,000 ML IV.SIG ONE (20:14)
[2018-01-17] MEDS ORDERED: HYDROmorphone PF Inj 2 MG/ML Vial IV.PUSH ONE (20:14)
[2018-01-17] MEDS ORDERED: Gentamicin Consult Pharmacy OTHER ONE (20:24)
[2018-01-17] MEDS ORDERED: ASP: Path resistant to other antimicrobials, culture proven OTHER PRN (20:25)
[2018-01-17] MEDS ORDERED: Meropenem Inj 2,000 MG in Sodium Chlor 0.9% Inj 100 ML IV.SIG STA (20:25)
[2018-01-17] MEDS ORDERED: ASP: ID consult, note reason in consult order OTHER PRN (20:25)
[2018-01-17] MEDS ORDERED: ASP: Documented allergy to Penicillins or Cephalosporins OTHER PRN (20:25)
--- NOTE | 2018-01-17 21:00 | XR ---
EXAM DATE: 01/17/2018 8:52 PM EDT AGE/SEX: 32 years / Female INDICATIONS: Cough. CLINICAL DATA: This is the patient's initial encounter. Patient reports that signs and symptoms have been present for 4 - 6 days and indicates a pain score of 0/10. MEDICAL/SURGICAL HISTORY: . Paraplegic. None. COMPARISON: [facility] [place], CHEST SINGLE AP, 09/28/2016. . FINDINGS: A single AP view of the chest demonstrates the lungs to be symmetrically aerated without evidence of mass, infiltrate or effusion. The cardiomediastinal contours are unremarkable. Old left rib fracture s are again seen. CONCLUSION: No evidence of acute cardiopulmonary disease. Electronically signed by: Raji Umana MD 01/17/2018 8:59 PM EDT
[2018-01-17 21:50] LABS: Baso % (Auto) 0.3 % (0.0-2.0); Eos # (Auto) 0.1 th/mm3 (0.0-0.4); Eos % (Auto) 2.4 % (0.0-4.0); Hematocrit 40.3 % (35.0-46.0); Hemoglobin 13.3 gm/dL (11.6-15.3); Lymph % (Auto) 36.4 % (9.0-44.0); Mean Corpuscular HGB Conc 33.1 % (32.0-36.0); Mean Corpuscular Hemoglobin 30.1 pg (27.0-34.0); Mono # (Auto) 0.3 th/mm3 (0.0-0.9); Mono % (Auto) 6.3 % (0.0-8.0); Neut % (Auto) 54.6 % (16.0-70.0); Platelet Count 232 th/mm3 (150-450); Red Blood Count 4.43 mil/mm3 (4.00-5.30); Red Cell Distribution Width 14.3 % (11.6-17.2); White Blood Count 5.5 th/mm3 (4.0-11.0)
[2018-01-17 21:56] LABS: Activated Partial Thrombo Time 28.1 sec (24.3-30.1); Prothrombin Time 9.8 sec (9.8-11.6)
[2018-01-17 22:09] LABS: Bacteria,Urine Occasional /hpf; Bilirubin,Urine Negative (Negative); Clarity,Urine Cloudy (Clear); Color,Urine Amber (Yellw/Straw); Glucose,Urine (UA) Negative (Negative); Leukocyte Esterase,Urine Moderate (Negative); Mucus,Urine Few /lpf (Occasional); Nitrite,Urine Positive (Negative); Specific Gravity,Urine 1.018 (1.002-1.035); Squamous Epithelial Cell,Urine 1 /hpf (0-5); Urobilinogen,Urine 4 or Greater mg/dL (Less than 2)
[2018-01-17 22:12] LABS: Alanine Aminotransferase 25 U/L (10-53); Albumin 3.9 g/dL (3.4-5.0); Anion Gap 11 meq/L (5-15); Aspartate Aminotransferase 12 U/L (15-37); Blood Urea Nitrogen 15 mg/dL (7-18); Calcium 9.6 mg/dL (8.5-10.1); Carbon Dioxide 24.9 meq/L (21.0-32.0); Chloride 104 meq/L (98-107); Glomerular Filtration Rate Greater Than 89 mL/min (>89); Glucose,Random 76 mg/dL (74-106); Lipase 62 U/L (73-393); Magnesium 2.3 mg/dL (1.5-2.5); Potassium 3.9 meq/L (3.5-5.1); Sodium 140 meq/L (136-145)
[2018-01-17 22:16] LABS: Alkaline Phosphatase 103 U/L (45-117); Total Protein 8.5 g/dL (6.4-8.2)
[2018-01-17 22:17] LABS: Creatine Kinase 29 U/L (26-192)
[2018-01-17] MEDS: GENTAMICIN IV.SIG SCH ×2 (22:49→23:34)
[2018-01-17] MEDS: SODIUM CHLOR 0.9% IV.SIG SCH ×2 (22:49→23:34)
--- NOTE | 2018-01-18 00:33 | CT ---
EXAM DATE: 01/17/2018 11:59 PM EDT AGE/SEX: 32 years / Female INDICATIONS: Abdomen pain. CLINICAL DATA: This is the patient's initial encounter. Patient reports that signs and symptoms have been present for 1 day and indicates a pain score of 5/10. MEDICAL/SURGICAL HISTORY: Gastroesophageal reflux disease. Hepatitis C. Colostomy. ORAL CONTRAST: No oral contrast ingested. RADIATION DOSE: 5.1 CTDI (mGy) COMPARISON: [facility] – [place], CT ABDOMEN & PELVIS W CONTRAST, 10/01/2016. . TECHNIQUE: Multiple contiguous axial images were obtained through the abdomen and pelvis following b olus infusion of 100 ml Omnipaque 350 (iohexol) nonionic water-soluble contrast as a single exam do se. No oral contrast ingested. Using automated exposure control and adjustment of the mA and/or kV a ccording to patient size, radiation dose was kept as low as reasonably achievable to obtain optimal d iagnostic quality images. DICOM format image data is available electronically for review and compari son. FINDINGS: LOWER LUNGS: Bibasilar atelectasis/scarring. LIVER: Mild hepatomegaly with mild diffusely decreased hepatic attenuation. No intrapelvic ductal di latation or gross focal mass. Portal vein is patent. Gallbladder is unremarkable by CT. SPLEEN: Homogeneous density without enlargement. PANCREAS: Unremarkable without mass or calcification. KIDNEYS: 7 mm calyceal calculus in the posterior mid right kidney. Kidneys otherwise unremarkable wi thout hydronephrosis and demonstrate symmetrical enhancement. ADRENAL GLANDS: Unremarkable. AORTA: Bety-aneurysmal. There is an IVC filter in place. There is caval penetration of the right IVC legs. BOWEL/MESENTERY: Left lower quadrant sigmoid colostomy. Bowel otherwise appears unremarkable without evidence for obstruction. No significant free fluid or drainable fluid collections. No free air. ABDOMINAL WALL: See above. RETROPERITONEUM: No evidence of adenopathy in the retrocrural, para-aortic, or deep pelvic regions. BLADDER: Decompressed secondary to Cortez catheter. REPRODUCTIVE: Prominent endometrium with probable 1.9 cm right ovarian cyst. BONY STRUCTURES: Stable appearance of residual pin/destruction of the right femoral head with some e rosive changes of the acetabulum. Improved inflammatory changes surrounding the right hip with improv ed fluid extending from the expected region of the hip joint. Near interval resolution of the cutis u lcer in the right buttock with near interval resolution of right gluteal fluid collections. There has also been near interval resolution of sacral decubitus ulcer. CONCLUSION: 1. 7 mm nonobstructing calyceal calculus in the mid right kidney. This is new from prior exam. 2. Improving changes of presumed sequela of right hip infection, as described above. 3. Remainder of the examination is unchanged with multiple ancillary findings, as above. Electronically signed by: Ramu Moore MD 01/18/2018 12:31 AM EDT
[2018-01-18] MEDS ORDERED: Acetaminophen 325 MG Tablet PO PRN (03:13)
[2018-01-18] MEDS: Ketorolac Inj 30 MG/ML (IVP) Vial IV.PUSH PRN ×2 (03:38→22:09)
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
[2018-01-18] MEDS: Ceftolozane/Tazobactam Inj 750 MG in Sodium Chlor 0.9% Inj 100 ML IV.SIG SCH ×2 (14:39→23:12)
[2018-01-18] MEDS: Baclofen 10 MG Tablet PO PRN ×2 (14:43→22:06)
[2018-01-18] MEDS: diazePAM 5 MG Tablet PO PRN (15:11)
[2018-01-18] MEDS: Enoxaparin Inj 40 MG/0.4 ML Syringe SQ SCH (22:06)
[2018-01-19] MEDS: diazePAM 5 MG Tablet PO PRN ×2 (03:12→17:23)
[2018-01-19] MEDS: Ketorolac Inj 30 MG/ML (IVP) Vial IV.PUSH PRN ×3 (06:18→20:29)
[2018-01-19] MEDS: Baclofen 10 MG Tablet PO PRN ×3 (06:18→21:55)
[2018-01-19] MEDS: Ceftolozane/Tazobactam Inj 750 MG in Sodium Chlor 0.9% Inj 100 ML IV.SIG SCH ×3 (06:21→21:55)
[2018-01-19] MEDS ORDERED: Bisacodyl 10 MG Supp RECTAL PRN (08:30)
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
[2018-01-19] MEDS: Senna/Docusate Sodium 8.6/50 MG Tablet PO SCH ×2 (11:09→20:29)
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
--- NOTE | 2018-01-19 17:15 | P.PNWCN ---
Wound Care Nurse Consult Description: Received pressure ulcer consult from Marilee HERNANDEZ for evaluation of wound to buttocks Communicated with: JAVY DARDEN and Marilee HERNANDEZ Recommendation: 1.Please cleanse wound to R ischial area with normal saline and pat dry. 2.Apply Maxorb extra AG cut into a strip and packed loosely to wound bed. 3.Cover with gentle adhesive foam dressing (optifoam 6x6 gentle border, optifoam sacrum, 7x7 or Allevyn gentle border). Change dressing every 3 days or as needed is saturated or dislodged. 4.Please place patient on WAVE bed from [facility]. 5. Assist patient with turns every 2 hours for offloading of pressure from melody prominences. Wound/Pressure Injury - Wound Right Ischium Wound Staging: Stage IV Wound Type: Pressure Injury Is This a Chronic Wound: Yes Requested from Provider a Wound Care Consult: Yes (Wound care has seen patient today) Length: 3 (~3cm) Width: 4 (~4cm) Depth: 3 (~3cm) Wound Bed Appearance: Red Wound Bed Appearance: Wound bed presents with 100% red non granulation tissue. Bone is palpated, but not visualized. Surrounding Tissue Appearance: [place] Surrounding Tissue Temperature: Warm Drainage Description: Yellow (Yellow/Green drainage) Drainage Amount: Moderate Drainage Odor: No Odor Dressing Status: Changed Cleansing Solution: Saline Wound Packing Type: Gauze Pads Cover Dressing: bordered gauze Wound Dressing Change Date: 01/19/18 Wound Margin Description: Wound margins present with some epibole. - Additional Information Patient seen in [facility] for evaluation of pressure injury to R ischial area. Patient is known to inpatient wound care from previous admissions. Patient is a paraplegic with history of multiple pressure injuries. Had flab surgery to close sacral and L ischial wound.Patient was turned to L side for wound assessment. Removed gauze and gauze packing in place to reveal open wound to R ischial area. Wound was cleansed with normal saline wound measurements and descriptions are noted above. Wound drainage is moderate with yellow/green drainage. Wound does not have a foul odor. Wound culture is positive for MRSA. Packed wound loosely with saline moistened gauze and covered with bordered gauze. Skin barrier film was applied before applying bordered gauze. RN to apply dressing as recommended above when supplies arrive. Bowel Diversion Stoma - Bowel Stoma Pre-Hospital: Left Lower Abdomen [place]-Stomal Skin Appearance: Intact [place]Stomal Surrounding Tissue Sensation Description: No Symptoms
[2018-01-19] MEDS ORDERED: Vancomycin Consult Pharmacy 1 EACH OTHER SCH (19:28)
[2018-01-19] MEDS: Enoxaparin Inj 40 MG/0.4 ML Syringe SQ SCH (20:28)
[2018-01-19] MEDS: Vancomycin Inj 1,250 MG in Sodium Chlor 0.9% Inj 250 ML IV.SIG SCH ×2 (20:28→20:40)
[2018-01-20] MEDS: Ceftolozane/Tazobactam Inj 750 MG in Sodium Chlor 0.9% Inj 100 ML IV.SIG SCH ×2 (05:38→16:40)
[2018-01-20] MEDS: diazePAM 5 MG Tablet PO PRN ×2 (05:44→20:36)
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
[2018-01-20] MEDS: Senna/Docusate Sodium 8.6/50 MG Tablet PO SCH ×2 (10:28→20:02)
[2018-01-20] MEDS: Baclofen 10 MG Tablet PO PRN ×2 (10:30→16:57)
[2018-01-20] MEDS: Ketorolac Inj 30 MG/ML (IVP) Vial IV.PUSH PRN ×2 (11:13→23:22)
[2018-01-20] MEDS: Vancomycin Inj 1,250 MG in Sodium Chlor 0.9% Inj 250 ML IV.SIG SCH ×2 (11:15→20:02)
[2018-01-20] MEDS ORDERED: Gabapentin 100 MG Capsule PO ONE (11:30)
[2018-01-20] MEDS: Gabapentin 100 MG Capsule PO SCH ×2 (16:57→21:20)
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
[2018-01-20] MEDS: Enoxaparin Inj 40 MG/0.4 ML Syringe SQ SCH (20:01)
[2018-01-21] MEDS: Ceftolozane/Tazobactam Inj 750 MG in Sodium Chlor 0.9% Inj 100 ML IV.SIG SCH ×4 (01:08→22:57)
[2018-01-21] MEDS: Baclofen 10 MG Tablet PO PRN ×3 (01:40→18:00)
[2018-01-21] MEDS ORDERED: Pharmacy Ordered Lab Info OTHER ONE (07:45)
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
[2018-01-21] MEDS: Senna/Docusate Sodium 8.6/50 MG Tablet PO SCH ×2 (10:04→20:50)
[2018-01-21] MEDS: Gabapentin 100 MG Capsule PO SCH ×3 (10:04→18:00)
--- NOTE | 2018-01-21 11:26 | XR ---
EXAM DATE: 01/21/2018 11:20 AM EDT AGE/SEX: 32 years / Female INDICATIONS: Paraplegic patient who is concerned for dislocated hips. CLINICAL DATA: This is the patient's initial encounter. Patient reports that signs and symptoms have been present for 1 day and indicates a pain score of 0/10. MEDICAL/SURGICAL HISTORY: . Paraplegic. Hepatitis C. Cervical cancer. . Left femoral natasha. [place] stomy. COMPARISON: [facility] [place], CT ABDOMEN & PELVIS W CONTRAST, 01/17/2018. . FINDINGS: Stable appearance of destruction of the right femoral head with displacement of the femoral head supe riorly and laterally from the adjacent acetabulum. The adjacent acetabulum is shallow and irregular w ith areas of demineralization. There is a natasha traversing the left femur. The left femoral head is nor mal in morphology. The remainder of the pelvis is unremarkable. CONCLUSION: The left hip is normal in position and appearance. The right hip demonstrates stable destruction of t he femoral head with displacement of the femur superiorly and laterally with respect to the adjacent acetabulum. It adjacent acetabulum demonstrates demineralization and osseous irregularity. Electronically signed by: Christina Correia MD 01/21/2018 11:25 AM EDT
--- NOTE | 2018-01-21 11:28 | XR ---
EXAM DATE: 01/21/2018 11:22 AM EDT AGE/SEX: 32 years / Female INDICATIONS: Paraplegic patient who is concerned for dislocated hips. CLINICAL DATA: This is the patient's initial encounter. Patient reports that signs and symptoms have been present for 1 day and indicates a pain score of 0/10. MEDICAL/SURGICAL HISTORY: . Paraplegic. Hepatitis C. Cervical cancer. . Left femoral natasha. [place] stomy. COMPARISON: No prior exams available for comparison. FINDINGS: Intramedullary natasha and screws traverse the left femur with evidence of old fracture deformity. The co rtex of the femur is diffusely thickened and increased in density throughout the area of fracture. Th e hardware appears intact without adjacent loosening. The femoral head is normal in contour and appro priately directed towards the left acetabulum. CONCLUSION: No evidence of left hip dislocation or hardware complication. Electronically signed by: Christina Correia MD 01/21/2018 11:27 AM EDT
[2018-01-21] MEDS: Vancomycin Inj 1,250 MG in Sodium Chlor 0.9% Inj 250 ML IV.SIG SCH (11:31)
--- NOTE | 2018-01-21 11:36 | XR ---
EXAM DATE: 01/21/2018 11:17 AM EDT AGE/SEX: 32 years / Female INDICATIONS: Constipation. CLINICAL DATA: This is the patient's initial encounter. Patient reports that signs and symptoms have been present for 1 day and indicates a pain score of 0/10. MEDICAL/SURGICAL HISTORY: . Paraplegic. Hepatitis C. Cervical cancer. . Left femoral natasha. [place] stomy. G tube. COMPARISON: No prior exams available for comparison. FINDINGS: The abdominal bowel gas pattern is normal. No abnormal masses, calcifications, or organomegaly is s een. IVC filter stable in position. Osseous structures demonstrate destruction of the right femoral h ead with displacement of the right femur near superiorly and laterally with respect to the adjacent a cetabulum. CONCLUSION: Moderate stool identified within the right colon and transverse colon. No stool identified within the descending colon or rectum. Electronically signed by: Christina Correia MD 01/21/2018 11:34 AM EDT
[2018-01-21] MEDS: Vancomycin Inj 1,500 MG in Sodium Chlor 0.9% Inj 500 ML IV.SIG SCH (20:44)
[2018-01-21] MEDS: diazePAM 5 MG Tablet PO PRN (20:50)
[2018-01-21] MEDS: Enoxaparin Inj 40 MG/0.4 ML Syringe SQ SCH (20:50)
[2018-01-21] MEDS: Melatonin 5 MG Tablet PO PRN (22:59)
[2018-01-22] MEDS: Vancomycin Inj 1,500 MG in Sodium Chlor 0.9% Inj 500 ML IV.SIG SCH ×5 (02:00→14:17)
[2018-01-22] MEDS: Ketorolac Inj 30 MG/ML (IVP) Vial IV.PUSH PRN ×3 (02:11→22:48)
[2018-01-22] MEDS: Baclofen 10 MG Tablet PO PRN ×3 (02:12→18:02)
[2018-01-22 05:42] LABS: Baso % (Auto) 0.5 % (0.0-2.0); Eos # (Auto) 0.1 th/mm3 (0.0-0.4); Eos % (Auto) 2.6 % (0.0-4.0); Hematocrit 31.7 % (35.0-46.0); Hemoglobin 10.8 gm/dL (11.6-15.3); Lymph # (Auto) 1.9 th/mm3 (1.0-4.8); Lymph % (Auto) 34.5 % (9.0-44.0); Mean Corpuscular HGB Conc 34.1 % (32.0-36.0); Mean Corpuscular Hemoglobin 30.7 pg (27.0-34.0); Mean Corpuscular Volume 90.1 fL (80.0-100.0); Mean Platelet Volume 9.2 fL (7.0-11.0); Mono # (Auto) 0.5 th/mm3 (0.0-0.9); Mono % (Auto) 9.6 % (0.0-8.0); Neut % (Auto) 52.8 % (16.0-70.0); Platelet Count 218 th/mm3 (150-450); Red Blood Count 3.52 mil/mm3 (4.00-5.30); Red Cell Distribution Width 14.6 % (11.6-17.2); White Blood Count 5.6 th/mm3 (4.0-11.0)
[2018-01-22 06:03] LABS: Anion Gap 8 meq/L (5-15); Blood Urea Nitrogen 10 mg/dL (7-18); Chloride 112 meq/L (98-107); Glomerular Filtration Rate Greater Than 89 mL/min (>89); Glucose,Random 85 mg/dL (74-106); Potassium 3.3 meq/L (3.5-5.1); Sodium 144 meq/L (136-145)
[2018-01-22] MEDS: Ceftolozane/Tazobactam Inj 750 MG in Sodium Chlor 0.9% Inj 100 ML IV.SIG SCH ×3 (06:06→22:49)
[2018-01-22 06:29] LABS: Vitamin B12 279 pg/mL (193-986)
[2018-01-22] MEDS: Senna/Docusate Sodium 8.6/50 MG Tablet PO SCH ×2 (08:32→20:08)
[2018-01-22] MEDS: Gabapentin 100 MG Capsule PO SCH ×3 (10:01→18:02)
--- NOTE | 2018-01-22 12:52 | P.PN ---
Subjective Interval history: Follow-up recurrent UTI January 22, 2018-patient seen and examined, complains of muscle spasm Physical Exam Vital signs: Vital Signs 01/21/18 17:30 01/21/18 20:00 01/22/18 00:00 Temperature 98.2 F 98.1 F 97.9 F Pulse Rate 74 85 84 Respiratory Rate 18 19 18 Blood Pressure 119/71 125/66 119/76 Pulse Oximetry 100 96 100 01/22/18 04:00 01/22/18 08:00 Temperature 97.9 F 97.9 F Pulse Rate 77 78 Respiratory Rate 18 18 Blood Pressure 105/60 111/53 L Pulse Oximetry 100 99 Intake & Output 01/21/18 01/22/18 01/22/18 18:59 06:59 18:59 Intake Total 462.5 / 462.5 615 / 615 100 / 100 Balance 462.5 / 462.5 615 / 615 100 / 100 Weight 84.4 kg 84.4 kg Intake: IV 462.5 / 462.5 615 / 615 100 / 100 Zerbaxa Inj 750 MG In NS Inj 200 / 200 100 / 100 100 / 100 100 ML @ 100 mls/hr IV.SIG Q8H [facility]I Rx#:[id number] Vancomycin Inj 1,250 MG In NS 262.5 / 262.5 Inj 250 ML @ 250 mls/hr IV.SIG Q12H [facility]I Rx#:[id number] Vancomycin Inj 1,500 MG In NS 515 / 515 Inj 500 ML @ 250 mls/hr IV.SIG Q12H [facility]I Rx#:[id number] Other: Date of Last Bowel Movement 01/17/18 01/21/18 Narrative: GENERAL: patient in NAD SKIN: Warm and dry. No rash. Wound at right buttocks, not visualized today. HEENT: Normocephalic. Atraumatic. Pupils equal and round. Mucous membranes pink and moist. CARDIOVASCULAR: Regular rate and rhythm. No murmur appreciated. Chest nontender to palpation. RESPIRATORY: No accessory muscle use. Clear to auscultation. Breath sounds equal bilaterally. GASTROINTESTINAL: Abdomen soft, non-tender, nondistended. Normoactive bowel sounds x4. Colostomy in place, no current output. GENITOURINARY: Cortez in place, pale yellow to clear urine. MUSCULOSKELETAL: No obvious deformities. Extremities without clubbing, cyanosis , or edema. NEUROLOGICAL: Awake and alert. No obvious cranial nerve deficits. Paraplegia. Normal speech. PSYCHIATRIC: Anxious mood today; insight and judgment normal. - Urinary Catheter Management Straight Cath placed during this visit: yes Reason for continuing: Chronic Urinary Retention Insertion date: 01/18/18 Insertion time: 00:35 Indwelling Urethral Catheter Cath placed during this visit: yes Reason for continuing: Chronic Urinary Retention Insertion date: 01/19/18 Results - Labs CBC & Chem 7: 01/22/18 04:27 01/22/18 04:29 Laboratory Results - last 24 hr 01/22/18 01/22/18 04:27 04:29 WBC 5.6 RBC 3.52 L Hgb 10.8 L Hct 31.7 L MCV 90.1 MCH 30.7 MCHC 34.1 RDW 14.6 Plt Count 218 MPV 9.2 Neut % (Auto) 52.8 Lymph % (Auto) 34.5 [place] % (Auto) 9.6 H Eos % (Auto) 2.6 Baso % (Auto) 0.5 Neut # (Auto) 3.0 Lymph # (Auto) 1.9 [place] # (Auto) 0.5 Eos # (Auto) 0.1 Baso # (Auto) 0.0 WBC Differential . Differential Comment Auto diff final Sodium 144 Potassium 3.3 L Chloride 112 H Carbon Dioxide 24.0 Anion Gap 8 BUN 10 Creatinine 0.34 L Estimated GFR Greater than 89 Random Glucose 85 Calcium 8.0 L Vitamin B12 279 Microbiology 01/17/18 21:15 Blood - Peripheral Aerobic Blood Culture - Final No growth in 5 days 01/17/18 21:15 Blood - Peripheral Anaerobic Blood Culture - Final No growth in 5 days 01/17/18 21:34 Blood - Peripheral Aerobic Blood Culture - Final No growth in 5 days 01/17/18 21:34 Blood - Peripheral Anaerobic Blood Culture - Final No growth in 5 days 01/21/18 08:00 Catheterized Urine Urine Culture - Preliminary No growth in 24 hours Assessment and Plan - Plan 32-year-old female with Recurrent UTI with Chronic Indwelling Cortez Catheter: acute. Afebrile, no leukocytosis. Hx of MDRO. -On antibiotics with IV 0 Baxa and IV vancomycin -Infectious disease consulted, appreciate assistance Right Buttocks Wound: present on admission, reportedly recent yellow drainage, possible source of infection -wound cultures with Klebsiella, Pseudomonas, and MRSA -currently on IV Zerbaxa and IV Vanco -wound care consulted, appreciate recommendations Loose Stools: patient reporting a few episodes of loose stools in colostomy -Resolved Paraplegia/Chronic Pain/Spasms: chronic -patient uses medical marijuana at home for pain, not on any narcotics -continue tylenol, toradol, norco prn, baclofen prn, gabapentin Extreme Anxiety/Mood Disorder: patient with very labile mood throughout admission. -records from [facility] reviewed, patient was evaluated by psychiatry who offered to start on antipsychotics however patient refused saying nothing is wrong with her -control mood with valium 5mg po bid prn anxiety, All other medical conditions stable, continue home medications as appropriate.
[2018-01-22] MEDS: Enoxaparin Inj 40 MG/0.4 ML Syringe SQ SCH (20:05)
[2018-01-22] MEDS: diazePAM 5 MG Tablet PO PRN (20:06)
[2018-01-22] MEDS: Melatonin 5 MG Tablet PO PRN (22:49)
[2018-01-23] MEDS: Baclofen 10 MG Tablet PO PRN ×3 (02:11→22:45)
[2018-01-23] MEDS: Vancomycin Inj 1,500 MG in Sodium Chlor 0.9% Inj 500 ML IV.SIG SCH ×2 (02:12→15:35)
[2018-01-23] MEDS: Ceftolozane/Tazobactam Inj 750 MG in Sodium Chlor 0.9% Inj 100 ML IV.SIG SCH ×3 (06:42→22:45)
[2018-01-23] MEDS: Senna/Docusate Sodium 8.6/50 MG Tablet PO SCH ×2 (08:54→22:46)
[2018-01-23] MEDS: diazePAM 5 MG Tablet PO PRN ×2 (08:57→22:45)
[2018-01-23] MEDS: Gabapentin 100 MG Capsule PO SCH ×3 (08:58→17:36)
--- NOTE | 2018-01-23 11:59 | P.DCO ---
- Home Health Nursing Order: Wound care and dressing changes, Cortez catheter maintenance - Certification I have seen patient Kerry Murray on 01/23/18. My clinical findings support the need for the requested home health care services because: Limited mobility due to disease progression I certify that my clinical findings support that this patient is homebound because: Non-ambulatory: confined to bed or chair
--- NOTE | 2018-01-23 11:59 | P.PNIM ---
Subjective Interval history: Doing much better. Would prefer to have oral antibiotics versus IV upon discharge to home. She does have chronic home health care set up. Physical Exam Vital signs: Vital Signs 01/22/18 12:00 01/22/18 16:00 01/22/18 20:00 Temperature 98.4 F 98.3 F 98.1 F Pulse Rate 76 72 87 Respiratory Rate 18 18 20 Blood Pressure 109/55 L 118/56 L 131/74 Pulse Oximetry 96 98 98 01/22/18 22:49 01/22/18 23:38 01/23/18 00:00 Temperature 98.9 F Pulse Rate 85 Respiratory Rate 20 20 20 Blood Pressure 139/65 Pulse Oximetry 97 01/23/18 02:41 01/23/18 04:00 01/23/18 08:00 Temperature 97.7 F 97.6 F Pulse Rate 67 66 Respiratory Rate 18 20 17 Blood Pressure 98/56 L 125/81 Pulse Oximetry 96 98 Intake & Output 01/22/18 01/23/18 01/23/18 18:59 06:59 18:59 Intake Total 1275 / 1275 1335 / 1335 Output Total 800 / 800 900 / 900 Balance 475 / 475 435 / 435 Weight 84.2 kg Intake: IV 715 / 715 615 / 615 Zerbaxa Inj 750 MG In NS Inj 200 / 200 100 / 100 100 ML @ 100 mls/hr IV.SIG Q8H [facility] Rx#:[id number] Vancomycin Inj 1,500 MG In NS 515 / 515 515 / 515 Inj 500 ML @ 250 mls/hr IV.SIG Q12H [facility] Rx#:[id number] Oral 560 / 560 720 / 720 Output: Urine 900 / 900 Urine Amount (Catheter) 800 / 800 Indwelling Urethral Catheter 800 / 800 Other: Date of Last Bowel Movement 01/21/18 01/21/18 # Bowel Movements 0 Narrative: GENERAL: Well-nourished well-developed patient in no acute distress SKIN: Warm and dry. No rash. Wound at right buttocks, not visualized today. HEENT: Normocephalic. Atraumatic. Pupils equal and round. Mucous membranes pink and moist. CARDIOVASCULAR: Regular rate and rhythm. No murmur appreciated. Chest nontender to palpation. RESPIRATORY: No accessory muscle use. Clear to auscultation. Breath sounds equal bilaterally. GASTROINTESTINAL: Abdomen soft, non-tender, nondistended. Normoactive bowel sounds x4. Colostomy in place, no current output. GENITOURINARY: Cortez in place, pale yellow to clear urine. MUSCULOSKELETAL: No obvious deformities. Extremities without clubbing, cyanosis , or edema slightly atrophic Skin: Wound VAC bilateral buttocks area NEUROLOGICAL: Awake and alert. No obvious cranial nerve deficits. Paraplegia. Normal speech. PSYCHIATRIC: Anxious mood today; insight and judgment normal. - Urinary Catheter Management Straight Cath placed during this visit: yes Reason for continuing: Chronic Urinary Retention Insertion date: 01/18/18 Insertion time: 00:35 Indwelling Urethral Catheter Cath placed during this visit: yes Reason for continuing: Chronic Urinary Retention Insertion date: 01/19/18 Results - Labs CBC & Chem 7: 01/22/18 04:27 01/22/18 04:29 Microbiology 01/21/18 08:00 Catheterized Urine Urine Culture - Final 01/17/18 21:15 Blood - Peripheral Aerobic Blood Culture - Final No growth in 5 days 01/17/18 21:15 Blood - Peripheral Anaerobic Blood Culture - Final No growth in 5 days 01/17/18 21:34 Blood - Peripheral Aerobic Blood Culture - Final No growth in 5 days 01/17/18 21:34 Blood - Peripheral Anaerobic Blood Culture - Final No growth in 5 days Assessment and Plan - Plan 32-year-old female with Recurrent UTI with Chronic Indwelling Cortez Catheter: acute. Afebrile, no leukocytosis. Hx of MDRO. -On antibiotics with IV Zerbaxa and IV vancomycin -Infectious disease consulted, appreciate assistance Repeat urine culture with no growth Right Buttocks Wound: present on admission, reportedly recent yellow drainage, possible source of infection -wound cultures with Klebsiella, Pseudomonas, and MRSA -currently on IV Zerbaxa and IV Vanco -wound care consulted, appreciate recommendations Will consult with infectious disease to determine if patient can be on oral antibiotics upon discharge to home. Loose Stools: patient reporting a few episodes of loose stools in colostomy -Resolved Paraplegia/Chronic Pain/Spasms: chronic -patient uses medical marijuana at home for pain, not on any narcotics -continue tylenol, toradol, norco prn, baclofen prn, gabapentin Extreme Anxiety/Mood Disorder: patient with very labile mood throughout admission per previous attending physician however patient has been pleasant during this encounter visit. -records from [facility] reviewed, patient was evaluated by psychiatry who offered to start on antipsychotics however patient refused saying nothing is wrong with her -control mood with valium 5mg po bid prn anxiety, Discharge Planning: Home with home health care when cleared by infectious disease
[2018-01-23] MEDS ORDERED: Pharmacy Ordered Lab Info OTHER ONE (13:45)
[2018-01-23] MEDS: Enoxaparin Inj 40 MG/0.4 ML Syringe SQ SCH (22:45)
[2018-01-24] MEDS: Vancomycin Inj 1,500 MG in Sodium Chlor 0.9% Inj 500 ML IV.SIG SCH (01:59)
[2018-01-24] MEDS: Ceftolozane/Tazobactam Inj 750 MG in Sodium Chlor 0.9% Inj 100 ML IV.SIG SCH (05:17)
[2018-01-24] MEDS: Senna/Docusate Sodium 8.6/50 MG Tablet PO SCH (08:15)
[2018-01-24] MEDS: Baclofen 10 MG Tablet PO PRN (08:15)
[2018-01-24] MEDS: Gabapentin 100 MG Capsule PO SCH (08:16)
[2018-01-24 08:51] LABS: Glomerular Filtration Rate Greater Than 89 mL/min (>89)
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
[2018-01-25] MEDS ORDERED: Pharmacy Ordered Lab Info OTHER ONE (01:45)
== END 2018-01-24 13:08 | disposition home health service (06) ==
LOC: NEDA 19:18 → NEPE 19:18 → NEPGCP 01-18 00:45 → N04 01-21 17:22
PROVIDERS: ADMIT Family Medicine; ATTEND Family Medicine
DX: Z79.899 Other long term (current) drug therapy; N39.0 Urinary tract infection, site not specified; B96.1 Klebsiella pneumoniae [K. pneumoniae] as the cause of diseases classified elsewhere; F12.90 Cannabis use, unspecified, uncomplicated; Z88.8 Allergy status to other drugs, medicaments and biological substances; G89.29 Other chronic pain; F41.9 Anxiety disorder, unspecified; N20.0 Calculus of kidney; Z88.0 Allergy status to penicillin; T83.511A Infection and inflammatory reaction due to indwelling urethral catheter, initial encounter; B96.5 Pseudomonas (aeruginosa) (mallei) (pseudomallei) as the cause of diseases classified elsewhere; L89.314 Pressure ulcer of right buttock, stage 4; B19.20 Unspecified viral hepatitis C without hepatic coma; Z79.891 Long term (current) use of opiate analgesic; B95.62 Methicillin resistant Staphylococcus aureus infection as the cause of diseases classified elsewhere; Z93.3 Colostomy status; Z87.891 Personal history of nicotine dependence; K21.9 Gastro-esophageal reflux disease without esophagitis; G82.20 Paraplegia, unspecified

== ENCOUNTER 2018-05-14 18:32 | Inpatient (IN) ==
[2018-05-14] MEDS ORDERED: Sod Chloride 0.9% Inj 1,000 ML IV.SIG ONE (19:05)
[2018-05-14] MEDS ORDERED: Morphine Inj 4 MG/ML Vial IV.PUSH ONE (19:05)
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
[2018-05-14 20:05] LABS: Bacteria,Urine Occasional /hpf; Bilirubin,Urine Negative (Negative); Clarity,Urine Cloudy (Clear); Color,Urine Yellow (Yellw/Straw); Glucose,Urine (UA) Negative (Negative); Leukocyte Esterase,Urine Large (Negative); Mucus,Urine Few /lpf (Occasional); Nitrite,Urine Negative (Negative); Specific Gravity,Urine 1.018 (1.002-1.035); Squamous Epithelial Cell,Urine 1 /hpf (0-5)
[2018-05-14 20:29] LABS: Baso % (Auto) 0.4 % (0.0-2.0); Eos # (Auto) 0.2 th/mm3 (0.0-0.4); Eos % (Auto) 2.1 % (0.0-4.0); Hematocrit 37.2 % (35.0-46.0); Hemoglobin 13.1 gm/dL (11.6-15.3); Lymph # (Auto) 2.1 th/mm3 (1.0-4.8); Lymph % (Auto) 27.7 % (9.0-44.0); Mean Corpuscular HGB Conc 35.3 % (32.0-36.0); Mean Corpuscular Hemoglobin 31.6 pg (27.0-34.0); Mean Corpuscular Volume 89.7 fL (80.0-100.0); Mean Platelet Volume 9.6 fL (7.0-11.0); Mono # (Auto) 0.5 th/mm3 (0.0-0.9); Mono % (Auto) 6.2 % (0.0-8.0); Neut # (Auto) 4.8 th/mm3 (1.8-7.7); Neut % (Auto) 63.6 % (16.0-70.0); Platelet Count 215 th/mm3 (150-450); Red Blood Count 4.14 mil/mm3 (4.00-5.30); Red Cell Distribution Width 12.8 % (11.6-17.2); White Blood Count 7.6 th/mm3 (4.0-11.0)
--- NOTE | 2018-05-14 20:50 | CT ---
EXAM DATE: 05/14/2018 8:37 PM EST AGE/SEX: 33 years / Female INDICATIONS: Bilateral flank pain. CLINICAL DATA: This is the patient's initial encounter. Patient reports that signs and symptoms have been present for 1 day and indicates a pain score of 6/10. MEDICAL/SURGICAL HISTORY: Hepatitis C. Facet arthritis. Colostomy. section. RADIATION DOSE: 14.16 CTDI (mGy) COMPARISON: [facility], CT ABDOMEN & PELVIS W/O CONTRAST, 02/25/2018. . TECHNIQUE: Multiple contiguous axial images were obtained through the abdomen. Images were obtained using multiple row detector helical technique. Using automated exposure control and adjustment of the mA and/or kV according to patient size, radiation dose was kept as low as reasonably achievable to o btain optimal diagnostic quality images. DICOM format image data is available electronically for rev iew and comparison. FINDINGS: 3 x 7 x 4 mm nonobstructing stone seen of the right kidney, unchanged. A few scattered plaque-like no nobstructing stones are seen of both kidneys, also unchanged. No ureteral calculus, hydronephrosis or hydroureter demonstrated on either side. Urinary bladder is decompressed with a Cortez catheter. Blad liseth stones are present, unchanged. There is an IVC filter. Liver and spleen are upper limits of normal size, unchanged. No focal hepatic or splenic lesion. CT a ppearance of the gallbladder within normal limits. Noncontrast appearance of the pancreas and adrenal glands within normal limits. Surgical changes of the colon with a left lower quadrant colostomy again noted. No obstruction or inf lammatory changes. No free fluid, free air or lymphadenopathy. 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 Fluid in the deep subcutaneous tissues of the lumbosacral region also similar to before . Visualized lung bases have minimal atelectasis, improved. CONCLUSION: 1. No acute abnormality seen within the abdomen or pelvic cavity. 2. There are nonobstructing stones of both kidneys. 3. Bladder stones again seen. Bladder is decompressed with a Cortez. 4. Surgical changes of the colon with left lower quadrant ostomy. No obstruction. 5. Chronic decubitus ulceration overlying the right ischial tuberosity with bone destruction. 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 Electronically signed by: Raji Umana MD 05/14/2018 8:49 PM EST
[2018-05-14 20:57] LABS: Albumin 4.1 g/dL (3.4-5.0); Anion Gap 8 meq/L (5-15); Aspartate Aminotransferase 15 U/L (15-37); Blood Urea Nitrogen 19 mg/dL (7-18); Calcium 8.8 mg/dL (8.5-10.1); Carbon Dioxide 26.4 meq/L (21.0-32.0); Chloride 110 meq/L (98-107); Glomerular Filtration Rate Greater Than 89 mL/min (>89); Glucose,Random 88 mg/dL (74-106); Potassium 3.7 meq/L (3.5-5.1); Sodium 144 meq/L (136-145)
[2018-05-14 20:58] LABS: Alanine Aminotransferase 31 U/L (10-53)
[2018-05-14 21:00] LABS: Alkaline Phosphatase 93 U/L (45-117); Total Protein 8.3 g/dL (6.4-8.2)
[2018-05-14] MEDS ORDERED: Bisacodyl 10 MG Supp RECTAL PRN (21:50)
[2018-05-14] MEDS ORDERED: Sodium Chloride 0.9% 2 ML Flush PRN IV.FLUSH (22:09)
[2018-05-14] MEDS ORDERED: Melatonin 5 MG Tablet PO PRN (22:15)
[2018-05-14] MEDS: Enoxaparin Inj 40 MG/0.4 ML Syringe SQ SCH (23:45)
[2018-05-14] MEDS: Sod Chloride 0.9% Inj 1,000 ML IV.CONT SCH (23:46)
--- NOTE | 2018-05-15 05:08 | P.HPIM ---
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 She reports feeling sensation of pain in her back, burning in her body which she says is almost always mean she has a bad UTI. She denies any chest pain or shortness of breath. She is requesting narcotic pain medications to help her sleep, relax, as well as treat pain. Review of Systems All other systems reviewed negative except as stated in HPI PMFSH - History History Provided By: Patient - Medical History Medical History: Medical History (Last Reviewed 05/14/18 @ 19:55 by Marcy Damon MD) delivery delivered (Acute) Colostomy in place (Acute) Anxiety Depression Fracture, femur GERD (gastroesophageal reflux disease) Hepatitis C History of frequent urinary tract infections Hx of headache Migraine Neuropathy Osteomyelitis Paraplegia - Surgical History Surgical History: Surgical History (Last Reviewed 05/14/18 @ 19:55 by Marcy Damon MD) S/P foot surgery, left Status post hip surgery - Family History Family History: Family History (Last Updated 05/15/18 @ 04:54 by Kris Burrows MD) Other Family history non-contributory - Social History I have reviewed the patient's Social History: Yes - Tobacco History Second Hand Smoke Exposure: No Tobacco Use In Past 30 Days: No (marijuana) Smoking Status: Former smoker Tobacco Type: Cigarettes - Alcohol History How Often Do You Have a Drink Containing Alcohol: Never - Substance Use History Substance History: No History of Abuse - Immunization History Tetanus Immunization: Unsure Medications and Allergies Active Medications: Active Medications Hydrocodone Bitart/Acetaminophen (Orange 5/325) 1 tab PO Q4H PRN PRN Reason: pain > 4 Last Admin: 05/15/18 01:02 Dose: 1 tab Al Hydroxide/Mg Hydroxide (Milk Of Magnesia Liq) 30 ml PO Q12H PRN PRN Reason: Mild Constipation Baclofen (Lioresal) 20 mg PO QID [facility] Bisacodyl (Dulcolax Supp) 10 mg RECTAL DAILY PRN PRN Reason: SEVERE CONSITIPATION Enoxaparin Sodium (Lovenox Inj) 40 mg SQ Q24H [facility] Last Admin: 05/14/18 23:45 Dose: 40 mg Gabapentin (Neurontin) 100 mg PO TID [facility] Ceftriaxone Sodium 1,000 mg/ (Sodium Chloride) 100 mls @ 200 mls/hr IV.SIG Q24H [facility] Sodium Chloride (Ns Inj) 1,000 mls @ 100 mls/hr IV.CONT .Q10H [facility] Last Admin: 05/14/18 23:46 Dose: 100 mls/hr Lactulose (Lactulose Liq) 30 ml PO DAILY PRN PRN Reason: SEVERE CONSITIPATION Melatonin (Melatonin) 1.25 mg PO HS PRN PRN Reason: SLEEP Sennosides (Senokot) 17.2 mg PO Q12H PRN PRN Reason: Moderate Constipation Sodium Chloride (Ns Flush) 2 ml IV.FLUSH BID [facility] Sodium Chloride (Ns Flush) 2 ml IV.FLUSH PRN PRN PRN Reason: FLUSH AFTER USING IV ACCESS Allergies Allergy/AdvReac Type Severity Reaction Status Date / Time penicillin G Allergy Severe HIVES Verified 05/14/18 18:44 daptomycin Allergy Mild Rash Verified 05/14/18 18:44 ketorolac [From Toradol] Allergy Rash Verified 05/14/18 18:44 *MDRO Multi-Drug Resistant AdvReac Unknown Weakness Uncoded 05/14/18 18:44 Organism Home Medications Medication Instructions Recorded Confirmed Type melatonin 1 mg PO HS PRN 01/17/18 05/14/18 History baclofen 20 mg PO QID 05/14/18 05/14/18 History Exam Vital signs: Vital Signs 05/14/18 18:44 05/14/18 23:14 05/15/18 03:48 Temperature 98.2 F 97.8 F 97.5 F L Pulse Rate 89 80 74 Respiratory Rate 18 Blood Pressure 124/62 114/59 L 107/57 L Pulse Oximetry 97 100 100 Intake & Output 05/14/18 05/14/18 05/15/18 06:59 18:59 06:59 Intake Total 1100 / 1100 Balance 1100 / 1100 Weight 72.575 kg 72.575 kg Intake: IV 1100 / 1100 NS Inj 1,000 ML @ Wide Open IV. 1000 / 1000 [facility] Rx#:[id number] Rocephin Inj 1,000 MG In NS Inj 100 / 100 100 ML @ 200 mls/hr IV.SIG ONCE ONE Rx#:[id number] Other: Weight On Admission 72.575 kg Narrative: GENERAL: Patient lying in bed. Appears comfortable. SKIN: Warm and dry. HEAD: Atraumatic. Normocephalic. EYES: Pupils equal and round. No scleral icterus. No injection or drainage. ENT: No nasal bleeding or discharge. Mucous membranes pink and moist. NECK: Trachea midline. No JVD. CARDIOVASCULAR: Regular rate and rhythm. RESPIRATORY: No accessory muscle use. Clear to auscultation. Breath sounds equal bilaterally. GASTROINTESTINAL: Abdomen soft, non-tender, nondistended. Hepatic and splenic margins not palpable. Left lower quadrant ostomy without surrounding erythema. MUSCULOSKELETAL: Extremities without clubbing, cyanosis, or edema. No obvious deformities. Unstageable right buttock ulcer. No surrounding erythema. NEUROLOGICAL: Awake and alert. No obvious cranial nerve deficits. Patient with strength intact bilateral arms. No movement or sensation below chest. PSYCHIATRIC: Appropriate mood and affect; insight and judgment normal. Results - Labs CBC & Chem 7: 05/14/18 20:15 05/14/18 20:15 Labs: Short CBC 05/14/18 Range/Units 20:15 WBC 7.6 (4.0-11.0) th/mm3 Hgb 13.1 (11.6-15.3) gm/dL Hct 37.2 (35.0-46.0) % Plt Count 215 (150-450) th/mm3 BMP 05/14/18 20:15 Sodium 144 Potassium 3.7 Chloride 110 H Carbon Dioxide 26.4 BUN 19 H Creatinine 0.48 L Calcium 8.8 Liver Function 05/14/18 Range/Units 20:15 Total Bilirubin 0.4 (0.2-1.0) mg/dL AST 15 (15-37) U/L ALT 31 (10-53) U/L Alkaline Phosphatase 93 (45-117) U/L Albumin 4.1 (3.4-5.0) g/dL Urine 05/14/18 Range/Units 18:45 Urine Color Yellow (Yellw/Straw) Urine Clarity Cloudy H (Clear) Urine pH 6.0 (5.0-8.5) Ur Specific [place] 1.018 (1.002-1.035) Urine Protein 100 H (Neg-Trace) mg/dL Urine Glucose (UA) Negative (Negative) mg/dL - Imaging Impressions Abdomen/Pelvis CT 05/14/18 19:05 CONCLUSION: 1. No acute abnormality seen within the abdomen or pelvic cavity. 2. There are nonobstructing stones of both kidneys. 3. Bladder stones again seen. Bladder is decompressed with a Cortez. 4. Surgical changes of the colon with left lower quadrant ostomy. No obstruction. 5. Chronic decubitus ulceration overlying the right ischial tuberosity with bone destruction. 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 Caprini VTE Risk Assessment Caprini VTE Risk Assessment: Moderate/High Risk (score >= 2) Caprini Risk Assessment Model: Point Value = 1 Point Value = 2 Point Value = 3 Point Value = 5 Age 41-60 Minor surgery BMI > 25 kg/m2 Swollen legs Varicose veins or History of unexplained or recurrent spontaneous Oral contraceptives or hormone replacement Sepsis (< 1 month) Serious lung disease, including pneumonia (< 1 month) Abnormal pulmonary function Acute myocardial infarction Congestive heart failure (< 1 month) History of inflammatory bowel disease Medical patient at bed rest Age 61-74 Arthroscopic surgery Major open surgery (> 45 min) Laparoscopic surgery (> 45 min) Malignancy Confined to bed (> 72 hours) Immobilizing plaster cast Central venous access Age >= 75 History of VTE Family history of VTE Factor V Leiden Prothrombin [id number] Lupus anticoagulant Anticardiolipin antibodies Elevated serum homocysteine Heparin-induced thrombocytopenia Other congenital or acquired thrombophilia Stroke (< 1 month) Elective arthroplasty Hip, pelvis, or leg fracture Acute spinal cord injury (< 1 month) Prophylaxis Regimen: Total Risk Factor Score Risk Level Prophylaxis Regimen 0-1 Low Early ambulation 2 Moderate Order ONE of the following: *Sequential Compression Device (SCD) *Heparin 5000 units SQ BID 3-4 Higher Order ONE of the following medications: *Heparin 5000 units SQ TID *Enoxaparin/Lovenox 40 mg SQ daily (WT < 150 kg, CrCl > 30 mL/min) *Enoxaparin/Lovenox 30 mg SQ daily (WT < 150 kg, CrCl > 10-29 mL/min) *Enoxaparin/Lovenox 30 mg SQ BID (WT < 150 kg, CrCl > 30 mL/min) AND/OR *Sequential Compression Device (SCD) 5 or more Highest Order ONE of the following medications: *Heparin 5000 units SQ TID (Preferred with Epidurals) *Enoxaparin/Lovenox 40 mg SQ daily (WT < 150 kg, CrCl > 30 mL/min) *Enoxaparin/Lovenox 30 mg SQ daily (WT < 150 kg, CrCl > 10-29 mL/min) *Enoxaparin/Lovenox 30 mg SQ BID (WT < 150 kg, CrCl > 30 mL/min) AND *Sequential Compression Device (SCD) Assessment and Plan - Plan //Complicated UTI. Urinalysis with innumerable white blood cells, white blood cell clumps. CT abdomen without any acute abnormalities, nonobstructing stones again seen. Follow-up urine culture, sensitivities. Nursing to replace Cortez. need to request outside records from [facility]. //Pressure ulcer of right buttock. Wound care nurse consulted. //Chronic neuropathic pain //History of narcotic IV drug abuse in the past. //Paraplegia following traumatic injury -Extensive IV drug abuse history prior to traumatic injury. -Continue baclofen and gabapentin Would avoid IV narcotics if possible.. Discussed Condition With: Patient, nurse, ED physician, uncle at bedside. H&P: Quality - VTE Deep Vein Thrombosis/Pulmonary Embolism Present on Admission: No
[2018-05-15 08:16] LABS: Baso % (Auto) 0.5 % (0.0-2.0); Eos # (Auto) 0.1 th/mm3 (0.0-0.4); Eos % (Auto) 2.1 % (0.0-4.0); Hematocrit 31.5 % (35.0-46.0); Hemoglobin 10.9 gm/dL (11.6-15.3); Lymph # (Auto) 1.7 th/mm3 (1.0-4.8); Lymph % (Auto) 30.3 % (9.0-44.0); Mean Corpuscular HGB Conc 34.5 % (32.0-36.0); Mean Corpuscular Hemoglobin 31.8 pg (27.0-34.0); Mean Corpuscular Volume 92.3 fL (80.0-100.0); Mean Platelet Volume 9.3 fL (7.0-11.0); Mono # (Auto) 0.4 th/mm3 (0.0-0.9); Mono % (Auto) 7.3 % (0.0-8.0); Neut # (Auto) 3.3 th/mm3 (1.8-7.7); Neut % (Auto) 59.8 % (16.0-70.0); Platelet Count 167 th/mm3 (150-450); Red Blood Count 3.41 mil/mm3 (4.00-5.30); Red Cell Distribution Width 12.9 % (11.6-17.2); White Blood Count 5.5 th/mm3 (4.0-11.0)
[2018-05-15] MEDS: Sod Chloride 0.9% Inj 1,000 ML IV.CONT SCH ×2 (08:47→18:11)
[2018-05-15 08:51] LABS: Alanine Aminotransferase 24 U/L (10-53); Albumin 3.2 g/dL (3.4-5.0); Anion Gap 8 meq/L (5-15); Blood Urea Nitrogen 13 mg/dL (7-18); Calcium 8.1 mg/dL (8.5-10.1); Carbon Dioxide 22.1 meq/L (21.0-32.0); Chloride 112 meq/L (98-107); Glucose,Random 87 mg/dL (74-106); Potassium 3.7 meq/L (3.5-5.1); Sodium 142 meq/L (136-145)
[2018-05-15] MEDS: Gabapentin 100 MG Capsule PO SCH ×3 (08:51→18:00)
[2018-05-15] MEDS: Sodium Chloride 0.9% 2 ML Flush BID IV.FLUSH SCH ×2 (08:51→21:06)
[2018-05-15 08:52] LABS: Aspartate Aminotransferase 10 U/L (15-37); Glomerular Filtration Rate Greater Than 89 mL/min (>89)
[2018-05-15 08:54] LABS: Alkaline Phosphatase 74 U/L (45-117); Total Protein 6.6 g/dL (6.4-8.2)
[2018-05-15] MEDS: Enoxaparin Inj 40 MG/0.4 ML Syringe SQ SCH (21:05)
[2018-05-15] MEDS ORDERED: Morphine Sulfate Inj 2 MG/ML Vial IV.PUSH ONE (22:51)
[2018-05-16] MEDS: Sod Chloride 0.9% Inj 1,000 ML IV.CONT SCH ×2 (06:15→14:24)
[2018-05-16] MEDS ORDERED: diazePAM 5 MG Tablet PO PRN (09:19)
--- NOTE | 2018-05-16 09:23 | P.PNIM ---
Subjective Interval history: Patient seen and evaluating. She is upset and yelling, complaining of burning pain all over. She states she is on fire. She refused the oral pain medication in the Neurontin earlier. She has been requesting IV pain medications. When asked, she could not give any specifics regarding her pain. Patient seen in the presence of her RN. Physical Exam Vital signs: Vital Signs 05/15/18 12:00 05/15/18 12:47 05/15/18 15:30 Temperature 98.2 F 98.0 F Pulse Rate 93 H 103 H Respiratory Rate 16 16 18 Blood Pressure 110/62 114/74 Pulse Oximetry 98 97 05/15/18 20:00 05/16/18 00:00 05/16/18 04:00 Temperature 98.3 F 97.7 F 98.0 F Pulse Rate 104 H 90 94 H Respiratory Rate 18 18 18 Blood Pressure 120/73 117/66 120/74 Pulse Oximetry 97 97 98 05/16/18 07:20 Temperature 98.1 F Pulse Rate 94 H Respiratory Rate 20 Blood Pressure 139/77 Pulse Oximetry 100 Intake & Output 05/15/18 05/16/18 05/16/18 18:59 06:59 18:59 Intake Total 1500 / 1500 1100 / 1100 Output Total 700 / 700 Balance 800 / 800 1100 / 1100 Intake: IV 1000 / 1000 1100 / 1100 NS Inj 1,000 ML @ 100 mls/hr IV 1000 / 1000 1000 / 1000 .CONT .Q10H [facility] Rx#:[id number] Rocephin Inj 1,000 MG In NS Inj 100 / 100 100 ML @ 200 mls/hr IV.SIG Q24H [facility] Rx#:[id number] Oral 500 / 500 Output: Urine Amount (Catheter) 700 / 700 Indwelling Urethral Catheter 700 / 700 Other: Date of Last Bowel Movement 05/14/18 05/14/18 Narrative: GENERAL: Patient lying in bed. Initially hysterical but able to calm down as I talked to her. SKIN: Warm and dry. RESPIRATORY: No accessory muscle use. Clear to auscultation. Breath sounds equal bilaterally. GASTROINTESTINAL: Abdomen soft, nondistended. Ostomy in place. NEUROLOGICAL: Awake and alert. Equal strength bilateral arms. No movement below chest. PSYCHIATRIC: Extremely anxious, hysterical, irritable. - Urinary Catheter Management Indwelling Urethral Catheter Cath placed during this visit: yes Reason for continuing: Chronic Urinary Retention Insertion date: 05/15/18 Insertion time: 16:02 Results - Labs CBC & Chem 7: 05/16/18 09:16 05/16/18 09:16 Laboratory Results - last 24 hr 05/14/18 18:45 Urine Color Yellow Urine Clarity Cloudy H Urine pH 6.0 Ur Specific [place] 1.018 Urine Protein 100 H Urine Glucose (UA) Negative Urine Ketones Negative Urine Occult Blood Negative Urine Nitrate Negative Urine Bilirubin Negative Urine Urobilinogen Less than 2 Ur Leukocyte Esterase Large H Urine RBC 26 H Urine WBC Urine WBC Clumps Moderate H Ur Squamous Epith Cells 1 Urine Bacteria Occasional H Urine Mucus Few H Micro UA Comment Culture indicated Urine Culture Comments Culture indicated Microbiology 05/14/18 18:45 Clean Catch Urine Urine Culture - Preliminary gram negative rods Assessment and Plan - Plan 33-year-old female with history of paraplegia and recurrent UTI admitted with UTI. Complicated UTI. Patient has indwelling Cortez due to paraplegia. She has recurrent UTI. Urinalysis with innumerable white blood cells, white blood cell clumps. CT abdomen without any acute abnormalities, nonobstructing stones again seen. -Discussed with microbiology. Urine is growing Pseudomonas with some resistance. Further testing is ongoing. They are able to tell me it is sensitive to ceftazidime. -Start ceftazidime and follow-up for the sensitivities tomorrow. Pressure ulcer of right buttock. Wound care nurse consulted. Chronic neuropathic pain History of narcotic IV drug abuse in the past. Paraplegia following traumatic injury -Extensive IV drug abuse history prior to traumatic injury. -Continue baclofen and gabapentin. Change Garner to Percocet PRN. No indication for IV narcotics at this point. Patient is paraplegic and is admitted for a UTI. - Advised the patient to use Gabapentin which she has been refusing. - Most of the patient issues seems to be related to anxiety Extreme anxiety: Patient seen on prior admissions and known to me. - Perviously managed with Valium. Extremely anxious and hysterical this morning. Will consult Psychiatry for assistance. - Resume Valium Q12. - Give Ativan IV as needed GI prophylaxis: Stool softener PRN constipation. DVT PPx: Lovenox Discussed Condition With: Extensive discussion with the patient's brother at bedside in the presence of two RNs. Discussed the plan of care at length. Discharge Planning: Awaiting final urine cultures
[2018-05-16 09:26] LABS: Baso % (Auto) 0.3 % (0.0-2.0); Eos # (Auto) 0.1 th/mm3 (0.0-0.4); Eos % (Auto) 1.7 % (0.0-4.0); Hematocrit 35.1 % (35.0-46.0); Hemoglobin 12.1 gm/dL (11.6-15.3); Lymph # (Auto) 1.8 th/mm3 (1.0-4.8); Lymph % (Auto) 28.8 % (9.0-44.0); Mean Corpuscular HGB Conc 34.5 % (32.0-36.0); Mean Corpuscular Hemoglobin 31.6 pg (27.0-34.0); Mean Corpuscular Volume 91.8 fL (80.0-100.0); Mean Platelet Volume 9.3 fL (7.0-11.0); Mono # (Auto) 0.4 th/mm3 (0.0-0.9); Mono % (Auto) 5.9 % (0.0-8.0); Neut # (Auto) 3.9 th/mm3 (1.8-7.7); Neut % (Auto) 63.3 % (16.0-70.0); Platelet Count 182 th/mm3 (150-450); Red Blood Count 3.82 mil/mm3 (4.00-5.30); Red Cell Distribution Width 12.7 % (11.6-17.2); White Blood Count 6.1 th/mm3 (4.0-11.0)
[2018-05-16 09:52] LABS: Anion Gap 8 meq/L (5-15); Blood Urea Nitrogen 7 mg/dL (7-18); Calcium 8.1 mg/dL (8.5-10.1); Carbon Dioxide 21.2 meq/L (21.0-32.0); Chloride 115 meq/L (98-107); Glomerular Filtration Rate Greater Than 89 mL/min (>89); Glucose,Random 89 mg/dL (74-106); Potassium 3.9 meq/L (3.5-5.1); Sodium 144 meq/L (136-145)
[2018-05-16] MEDS: Gabapentin 100 MG Capsule PO SCH ×3 (09:53→19:02)
[2018-05-16] MEDS: Sodium Chloride 0.9% 2 ML Flush BID IV.FLUSH SCH ×2 (10:01→22:28)
[2018-05-16] MEDS: Enoxaparin Inj 40 MG/0.4 ML Syringe SQ SCH (22:29)
[2018-05-17] MEDS: Sod Chloride 0.9% Inj 1,000 ML IV.CONT SCH ×3 (02:46→21:57)
[2018-05-17] MEDS: Sodium Chloride 0.9% 2 ML Flush BID IV.FLUSH SCH ×2 (10:10→21:59)
--- NOTE | 2018-05-17 11:35 | P.PNIM ---
Subjective Interval history: Patient seen earlier today. Hysterical in the morning and requesting IV Narcotics again but her mood improved after she received IV Ativan. Psychiatry attempted to see the patient but her significant other/friend at bedside told the psychiatrist they do not want "black doctors" to see the patient and used discriminatory/racist words regarding myself due to the psychiatry consult even though this was previously discussed with the patient and her brother. Physical Exam Vital signs: Vital Signs 05/16/18 20:00 05/17/18 00:00 05/17/18 04:00 Temperature 98.1 F 97.3 F L 97.9 F Pulse Rate 74 77 80 Respiratory Rate 18 18 18 Blood Pressure 129/79 127/71 124/64 Pulse Oximetry 98 97 98 05/17/18 08:00 Temperature 98.1 F Pulse Rate 99 H Respiratory Rate 16 Blood Pressure 129/81 Pulse Oximetry 99 Intake & Output 05/16/18 05/17/18 05/17/18 18:59 06:59 18:59 Intake Total 100 / 100 200 / 200 Balance 100 / 100 200 / 200 Weight 72.575 kg Intake: IV 100 / 100 200 / 200 NS Inj 1,000 ML @ 100 mls/hr IV 0 / 0 .CONT .Q10H [facility] Rx#:[id number] Tazicef Inj 1,000 MG In NS Inj 100 / 100 200 / 200 100 ML @ 200 mls/hr IV.SIG Q8H [facility] Rx#:[id number] Narrative: GENERAL: Patient lying in bed. No acute distress SKIN: Warm and dry. RESPIRATORY: No accessory muscle use. Clear to auscultation. Breath sounds equal bilaterally. GASTROINTESTINAL: Abdomen soft, nondistended. Ostomy in place. NEUROLOGICAL: Awake and alert. Equal strength bilateral arms. No movement below chest. PSYCHIATRIC: Extremely anxious. - Urinary Catheter Management Indwelling Urethral Catheter Cath placed during this visit: yes Reason for continuing: Chronic Urinary Retention Insertion date: 05/15/18 Insertion time: 16:02 Results - Labs CBC & Chem 7: 05/16/18 09:16 05/16/18 09:16 Microbiology 05/14/18 18:45 Clean Catch Urine Urine Culture - Final Pseudomonas aeruginosa Assessment and Plan - Plan 33-year-old female with history of paraplegia and recurrent UTI admitted with UTI. Complicated UTI. Patient has indwelling Cortez due to paraplegia. She has recurrent UTI. Urinalysis with innumerable white blood cells, white blood cell clumps. CT abdomen without any acute abnormalities, nonobstructing stones again seen. -Resistant pseudomonas UTI - ID consulted and antibiotics changed to Imipenem. ID recommends repeat Urine culture. Cortez has been changed. Pressure ulcer of right buttock. Chronic. Wound care following. DW wound care. Continue with dressing changes. Chronic neuropathic pain History of narcotic IV drug abuse in the past. Paraplegia following traumatic injury -Extensive IV drug abuse history prior to traumatic injury. -Continue baclofen and gabapentin. Percocet PRN. No indication for IV narcotics. Patient is paraplegic and is admitted for a UTI. Very familiar with the patient and she can become very hysterical with persistent request for IV Narcotics. - Advised the patient to use Gabapentin which she has been refusing. - Most of the patient issues seems to be related to anxiety Extreme anxiety: Patient seen on prior admissions and known to me. - Perviously managed with Valium. - Continue Valium Q12. - Give Ativan IV as needed -Psychiatry consulted. However limited consult as the patient's significant other at the bedside refused consult by a "back doctor". Verbally hostile/abusive and racist family member/significant other at bedside: - DW charge nurse that we cannot tolerate verbal abuse to the staff. Per nursing staff the individual will be escorted out. GI prophylaxis: Stool softener PRN constipation. DVT PPx: Lovenox Discharge Planning: Admit to inpatient, the patient has a resistant pseudomonas UTI and requires IV antibiotics.
--- NOTE | 2018-05-17 13:39 | MB ---
cc: Blane Biggs MD DATE: 05/17/2018 REQUESTING PHYSICIAN: Dr. Polo REASON: Resistant urinary tract infection. HISTORY OF PRESENT ILLNESS: This is a 33-year-old white female who is paraplegic. The patient was admitted to the hospital after presenting to the emergency department on 05/14/2018 with urinary complaints. The patient has a history of recurrent urinary tract infections. She reports that she was recently hospitalized at [facility] about 2 weeks ago and was treated for a UTI. She started to feel ill again and took oral antibiotics without improvement. Urinalysis was obtained and it showed innumerable white cells and urine culture came back with resistant Pseudomonas aeruginosa. She is currently on ceftazidime. SHE IS ALLERGIC TO PENICILLIN. The patient states that she has autonomic dysreflexia. She is currently shivering and states that she is burning up and that her skin feels like it is on fire. The RN reports that she has been requesting pain medications very frequently. White blood cell count is normal. She has no fever. Blood pressure is 129/81 and the heart rate is 99. The patient also tells me that she has a migraine headache currently. She has a Cortez catheter in place. The patient had complained of pain in the back and she did complain of the burning of her body on 05/14/2018. PAST MEDICAL HISTORY: Anxiety, depression, gastroesophageal reflux disease, migraine, hepatitis C, neuropathy, paraplegia, colostomy, history of hip surgery. ALLERGIES: DAPTOMYCIN, PENICILLIN G, KETOROLAC. MEDICATIONS: 1. Ceftazidime 2. Baclofen. 3. Percocet 7.5. 4. Valium. 5. Lactulose. SOCIAL HISTORY: The patient is a former smoker. No alcohol. No illicit drugs. FAMILY HISTORY: Noncontributory. REVIEW OF SYSTEMS: All systems have been reviewed and pertinent positives are mentioned in history of present illness. PHYSICAL EXAMINATION: GENERAL: Well-developed female who is lying in bed and shivering. However, she is awake and answers questions and does not appear to be in acute distress. VITAL SIGNS: Temperature 98.1, BP 129/81, respirations 16, heart rate 99. HEENT: Atraumatic. Extraocular movements grossly intact. Pupils reactive to light. No icterus. Oropharynx: Moist mucosa. No thrush. No visible lesions. NECK: Supple. No adenopathy. LUNGS: Clear, decreased breath sounds. HEART: Regular S1, S2, without murmurs, rubs or gallops. ABDOMEN: Bowel sounds present. Soft, no tenderness appreciated. SKIN: No diffuse rash. The patient has erythema on the back and buttock. NEUROLOGIC: Limited. The patient is paraplegic. Upper body strength is intact. PSYCHIATRIC: The patient is anxious. LABORATORY DATA: WBC 6.1, platelets 182, 63% neutrophils, 28% lymphocytes. Creatinine 0.40, BUN 7, sodium 154, estimated GFR greater than 89. IMPRESSION: 1. Urinary tract infection due to very resistant Pseudomonas. 2. ALLERGY TO PENICILLIN. 3. Paraplegia. 4. Patient with Cortez catheter and history of multiple urinary tract infections in the past. RECOMMENDATIONS: 1. Discontinue ceftazidime. 2. Begin imipenem IV. 3. Repeat urine culture in a couple of days to check for clearance of the bacteria from the urine. Thank you for this consultation. The patient's progress will be monitored and further recommendations will be given upon followup if necessary. MD DORIS Lawrence/sameer/ll , 12:42 PM , 12:57 PM
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
--- NOTE | 2018-05-17 14:49 | P.PNWCN ---
Wound Care Nurse Consult Description: Received consult for pressure ulcer to R buttock from Doctor Markos Communicated with: Doctor Christ and RN Barry West in H pod Recommendation: Please cleanse wound to R ischial area with normal saline or wound cleanser and pat dry Apply Maxorb extra AG to to wound bed and cover with Optifoam gentle dressing. Change dressing every 3 days or PRN if saturated or dislodged. Please turn patient every 2 hours from L side to R side limiting time spent on back to P.t. and meals Please DO NOT put cotton under pads on low airloss mattress, use one ultrasorb pad only for moisture management. Wound/Pressure Injury - Patient Status Premedicated for Pain Prior to Dressing Change: Yes - Wound Right Buttocks Wound Staging: Stage IV Wound Assessment: Ongoing Wound Type: Pressure Injury Is This a Chronic Wound: Yes Requested from Provider a Wound Care Consult: Yes (Patient has been seen by wound care nurse) Length (cm): 2.5 Width (cm): 3 Depth (cm): 0.2 (~0.2cm) Wound Bed Appearance: Red Wound Bed Appearance: 100% red granulated tissue Surrounding Tissue Appearance: [place] Surrounding Tissue Temperature: Cool Drainage Description: Serosanguinous Drainage Amount: Moderate Drainage Odor: No Odor Dressing Status: Changed Cleansing Solution: Saline Wound Packing Type: Alginate (maxorb extra AG) Cover Dressing: optifoam gentle 7x7 Wound Dressing Change Date: 05/18/18 Wound Margin Description: Well defined and open. - Additional Information Patient seen on H pod for R buttocks pressure ulcer. Patient turned toward the L side and removed dressing in place over R buttock to reveal R ischial wound. Patient has been seen several times in the past on previous admissions by inpatient wound care team for this and other wounds.Wound to R ischial was previously staged as stage IV pressure injury. Patient is now noted with a healing stage IV pressure injury, with 100% beefy red granulation tissue visible.Wound was cleansed with normal saline and patted dry. Applied Maxorb extra AG to wound bed and covered with optifoam gentle dressing.
[2018-05-17] MEDS: Gabapentin 100 MG Capsule PO SCH ×3 (16:42→20:50)
[2018-05-17] MEDS: Enoxaparin Inj 40 MG/0.4 ML Syringe SQ SCH (21:58)
[2018-05-18] MEDS: Sod Chloride 0.9% Inj 1,000 ML IV.CONT SCH ×4 (05:03→17:25)
[2018-05-18 07:33] LABS: Hematocrit 33.7 % (35.0-46.0); Mean Corpuscular HGB Conc 35.5 % (32.0-36.0); Mean Corpuscular Hemoglobin 31.8 pg (27.0-34.0); Mean Corpuscular Volume 89.4 fL (80.0-100.0); Mean Platelet Volume 9.1 fL (7.0-11.0); Platelet Count 173 th/mm3 (150-450); Red Blood Count 3.77 mil/mm3 (4.00-5.30); Red Cell Distribution Width 12.5 % (11.6-17.2); White Blood Count 4.9 th/mm3 (4.0-11.0)
[2018-05-18] MEDS: Gabapentin 100 MG Capsule PO SCH ×5 (09:13→17:25)
[2018-05-18] MEDS: Sodium Chloride 0.9% 2 ML Flush BID IV.FLUSH SCH ×2 (09:13→20:01)
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
[2018-05-18 16:26] VITALS: RESP 18; TEMP 97.8
[2018-05-18] MEDS ORDERED: Ketorolac Inj 30 MG/ML (IVP) Vial IV.PUSH PRN (16:29)
[2018-05-18] MEDS ORDERED: Naloxone Inj 0.4 MG/ML Vial IV.PUSH PRN (17:44)
[2018-05-18] MEDS ORDERED: Morphine Sulfate 15 MG IR Tablet PO PRN (17:45)
[2018-05-18 18:02] LABS: Creatine Kinase 32 U/L (26-192)
[2018-05-18 18:19] LABS: Bacteria,Urine Rare /hpf; Bilirubin,Urine Negative (Negative); Clarity,Urine Hazy (Clear); Color,Urine Yellow (Yellw/Straw); Glucose,Urine (UA) 50 mg/dL (Negative); Leukocyte Esterase,Urine Large (Negative); Mucus,Urine Many /lpf (Occasional); Nitrite,Urine Negative (Negative); Specific Gravity,Urine 1.013 (1.002-1.035); Squamous Epithelial Cell,Urine <1 /hpf (0-5)
[2018-05-18] MEDS: Enoxaparin Inj 40 MG/0.4 ML Syringe SQ SCH (22:03)
[2018-05-19 00:10] LABS: Creatine Kinase 33 U/L (26-192)
--- NOTE | 2018-05-19 00:20 | CT ---
EXAM DATE: 05/19/2018 12:05 AM EST AGE/SEX: 33 years / Female INDICATIONS: Shortness of breath and elevated D-dimer. CLINICAL DATA: This is the patient's initial encounter. Patient reports that signs and symptoms have been present for 1 day and indicates a pain score of 0/10. MEDICAL/SURGICAL HISTORY: Hepatitis C. Colostomy. RADIATION DOSE: 18.97 CTDI (mGy) COMPARISON: [facility] [place], CT PULMONARY ANGIOGRAM, 05/02/2016.. . TECHNIQUE: Volumetric scanning was performed using a multi-row detector CT scanner during bolus infu chandler of 60 ml Omnipaque 350 (iohexol) nonionic water-soluble contrast as a single exam dose. The linda a was post processed with a variety of visualization algorithms including full volume maximum intensi ty projection and sliding thin slab reformation. Using automated exposure control and adjustment of t he mA and/or kV according to patient size, radiation dose was kept as low as reasonably achievable to obtain optimal diagnostic quality images. DICOM format image data is available electronically for r eview and comparison. FINDINGS: Pulmonary Arteries: No filling defects are seen in the pulmonary arteries out to the subsegmental ve ssels. The left and right pulmonary arteries are normal in diameter. Lung: Bibasilar atelectasis. No infiltrates seen. Effusion: None. Mediastinum: There is a replaced right subclavian artery. No evidence of mediastinal or hilar adenop athy. Other: The axilla is unremarkable. CONCLUSION: 1. No pulmonary emboli. 2. Mild bibasilar atelectasis. Electronically signed by: Estrada West MD 05/19/2018 12:19 AM EST
[2018-05-19 00:33] VITALS: O2SAT 97
[2018-05-19 01:31] VITALS: BP 127/73; PULSE 94
--- NOTE | 2018-05-19 16:14 | ECG ---
Date Performed: 05/18/2018 Time Performed: 16:13:20 PTAGE: 33 years EKG: Sinus rhythm . Since previous tracing, no significant change noted Normal ECG PREVIOUS TRACING : 03/29/2017 1145 DOCTOR: Phoebe Tarango Interpretating Date/Time 05/19/2018 16:12:35
== END 2018-05-19 02:30 | disposition left against medical advice (07) ==
LOC: NEDA 18:32 → NEPD 18:32 → NEDA 23:03 → NEPHCDU 23:10 → N03 05-18 10:34
PROVIDERS: ADMIT Hospitalist; ATTEND Hospitalist